=== PATIENT | female | born 1940 | race Caucasian/White ===

== ENCOUNTER 2022-03-29 10:01 | Inpatient (IN) ==
--- NOTE | 2022-03-29 10:18 | Emergency Department Note ---
Impression & Plan Weakness, Falls, Multiple contusions, Pain of right shoulder region ED Provider Note Provider: Jagdeep Glover MD DATE OF SERVICE: 03/29/2022 CHIEF COMPLAINT: Staring episodes, recent fall HISTORY OF PRESENT ILLNESS: Patient is a 82-year-old female with a history of CKD, hypertension, diabetes, and dementia presenting here today from her nursing facility for evaluation of change in behavior over the last several days and recent fall last week. Was seen here after a fall last week and had negative head imaging. Developed a significant bruising with scabbing to resolve on the mid side of the face. Discussed with staff members from the facility via phone the patient's been crawling the last several days but has been eating. No fevers reported. No more falls noted. They state at times it seems like she may stare off a little bit including 3 or 4 times this morning. No vomiting reported. They states that again she does have some underlying dementia. Patient herself denies significant pain to me but is unable provide any significant history. Daughter later arrives and states over the last 2 days the patient's been more confused lately she had urinary tract infections before. REVIEW OF SYSTEMS: Limited review of systems obtained from the patient due to her underlying dementia. PAST MEDICAL HISTORY: As noted above MEDICATIONS: Reviewed medication listing from the facility SOCIAL HISTORY: Resides at [facility] facility PHYSICAL EXAM: GENERAL: alert in no distress seated on the stretcher occasionally opening her eyes. Is unable to tell me her location or the year. Head: Patient with resolving and healing ecchymosis/contusion over the mid left forehead and left face. Small healing bruise in the chin. EYES: Right eye is a contact. Left eye is generally closed with no significant icterus or discharge noted NECK: Trachea midline. Supple. ENT: Mucous membranes pink and moist. LUNGS: Airway patent. No retractions. Breath sounds clear with good air entry bilaterally. HEART: Regular rate and rhythm. Some mild right-sided chest wall tenderness. ABDOMEN: Soft and non-tender, without guarding or rebound. SKIN: Acyanotic, warm, dry, without rashes EXTREMITIES: Patient with some tenderness of the right shoulder but no significant tenderness of the lower extremity noted. No significant pain with range of motion of the lower extremities although she is resisting some. Some healing contusion overlying the right knee. NEUROLOGICAL: Withdraws to pain in all 4 extremities. Will occasionally say yes or no. EK bpm normal sinus rhythm. No PVC or PAC. No acute ST segment elevation or depression. QTc 471. CONTINUOUS CARDIAC MONITORING: was ordered and showed a heart rate of 70s-90s bpm in normal sinus rhythm Patient's laboratory studies and imaging reviewed. Differential includes traumatic, infection, dehydration, metabolic abnormality, hypo/hyperglycemia, electrolyte disturbance, anemia, hypoxia, cardiac sources, intracerebral event, toxicologic, neurologic, as well as other pathologies. IMPRESSION/MEDICAL DECISION MAKING: Patient with about 2 days of some worsening confusion. Recent fall last week. Healing ecchymoses on exam but given the recent falls and more recently her confusion did complete evaluation with CT head, cervical spine, chest, as well as x-ray of the pelvis, right shoulder, and right knee which per radiology were reassuring for significant traumatic injury. Basic blood work was sent here without significant anemia or leukocytosis. Borderline hyponatremia. No significant renal dysfunction. Slight bilirubin elevation to 2.3 question if this is related to her resolving ecchymoses contusions. Negative COVID. No evidence of acute ACS with a normal high-sensitivity troponin. No TSH abnormal ity and a negative COVID test. Urine sample was ordered to evaluate for possible UTI. Daughter present at bedside states the patient has acted similarly when she is had urinary infections in the past. Straight cath urine sample here not indicative of infection. Daughter was able to converse briefly with the patient and indicates she wants some ice cream. Again no large focal deficits but generalized confusion increased weakness per the daughter. Again facility question if there may been some staring spells but have witnessed these here and do not see evidence of a reports of classic tonic-clonic seizure activity. Believe seizure less likely. Discussed with daughter the findings. X-rays again are reassuring. CTs were reassuring here. Cannot entirely exclude a CVA but not obvious hemiplegic in any nature. On additional reassessment with the patient's daughter at bedside the patient is currently in assisted living. Patient obvious requiring more assistance without currently identified clear explanation for why she may be more weak or confused today. Given this discussed with case management placement options and it appears that the option at this point is to have the p atient further observed by the hospitalist for further evaluation of some increased weakness/confusion as well case management works to see if additional resources may be mobilized to assist the patient with her ADLs and care. DIAGNOSIS: Contusions, confusion DISPOSITION: Hospitalist will evaluate Past Med/Surg History Medical History CKD (chronic kidney disease), stage III Diabetic peripheral neuropathy HTN (hypertension) Hyperlipidemia Loss of protective sensation of skin of foot Surgical History (Updated 02/29/20 @ 16:45 by Jarvis Devi MD) Hx of cataract extraction Social History (Updated 02/29/20 @ 16:46 by Jarvis Devi MD) Smoking Status: Unknown if ever smoked Hx Alcohol Use: No Preferred Language: Turkmen current occupational status: retired Feels Safe at Home: Yes Allergies Allergies Allergy/AdvReac Type Severity Reaction Status Date / Time Cephalosporins Allergy Mild ITCHING Verified 01/22/22 08:17 azithromycin Allergy itching Verified 01/22/22 08:17 clindamycin Allergy Diarrhea Verified 01/22/22 08:17 haloperidol AdvReac Unknown Unknown Uncoded 01/22/22 08:17 risperidone AdvReac Unknown Unknown Uncoded 01/22/22 08:17 Home Meds Home Medications Medication Instructions Recorded Confirmed aspirin 81 mg tablet,delayed 81 mg PO DAILY 10/25/19 03/29/22 release (Adult Aspirin Regimen) atorvastatin 40 mg tablet 40 mg PO DAILY 10/25/19 03/29/22 citalopram 40 mg tablet (Celexa) 40 mg PO DAILY tab 10/25/19 03/29/22 levothyroxine 75 mcg tablet 75 mcg PO DAILY 10/25/19 03/29/22 calcium carbonate 600 mg-vitamin 1 tab PO DAILY 10/27/19 03/29/22 D3 20 mcg (800 unit) tablet (Caltrate with Vitamin D3) cyclosporine 0.05 % eye drops in a 1 drops OP BID ea 10/27/19 03/29/22 dropperette (Restasis) vitamins A,C,G-dusn-nwscee 1 tab PO DAILY 10/27/19 03/29/22 [PreserVision AREDS] xpsjjmnetsm-vmb-jmhuxsrvk-hrb 1 tab PO DAILY tab 02/29/20 03/29/22 149-hyalur 500 mg-500 mg-66.7 mg tablet (Wxtquvqaadd-Lcopkreulom-FAS (with antiox)) vitamin E (dl, acetate) 180 mg 450 mg PO DAILY 05/04/20 03/29/22 (400 unit) capsule propylene glycol 0.6 % eye drops 1 drp OPHTHALMIC (EYE) TID PRN 12/04/20 03/29/22 (Systane Complete) acetaminophen 325 mg capsule 325 mg PO QID PRN 01/04/21 03/29/22 (Tylenol) hydrochlorothiazide 25 mg tablet 12.5 mg PO QAM 01/22/22 03/29/22 zxseyrhprhdz-xbonulqh-wcxcts tablet 1 tab PO DAILY 01/22/22 03/29/22 buspirone 5 mg tablet 5 mg PO BID 03/29/22 03/29/22 insulin aspar prot-insulin aspart 25 unit SQ DAILY 03/29/22 03/29/22 100 unit/mL (70-30) subcutaneous pen (Novolog Mix 70-30FlexPen U-100) Previous Rx's Medication Instructions Recorded blood sugar diagnostic #500 ea NS 10/01/21 pen needle,diabetic dual safty 30 #500 ea 02/07/22 gauge x 3/16" (BD AutoShield Duo Pen Needle) ReadyLance Safety Lancets 30 gauge #400 ea NS 03/20/22 (lancets) Results & Data (ED) Vital Signs Vital Signs - 24 hr 03/29/22 10:11 03/29/22 10:30 03/29/22 10:42 Temperature 36.8 C Temperature Source Oral Pulse Rate 82 Pulse Rate [Apical] 76 Respiratory Rate 18 19 Respiratory Effort / Characteristics Non-Labored Non-Labored Respiratory Depth Normal Normal Respiratory Pattern Regular Blood Pressure 141/66 H Blood Pressure [Right Arm] 137/65 Blood Pressure Mean 91 Blood Pressure Mean [Right Arm] 89 Blood Pressure Position [Right Arm] Semi-fowlers Pulse Oximetry 96 98 96 Oxygen Delivery Method Room Air Room Air Room Air Sepsis Recent Fever Within 48 Hours No Sepsis New/Unexplained Change in Mental Status No Sepsis Action Taken by Nursing No Action Required 03/29/22 12:00 03/29/22 14:00 Temperature Temperature Source Pulse Rate Pulse Rate [Apical] 81 Respiratory Rate 15 16 Respiratory Effort / Characteristics Non-Labored Spontaneous Non-Labored Spontaneous Respiratory Depth Normal Normal Respiratory Pattern Regular Blood Pressure Blood Pressure [Right Arm] 141/66 H Blood Pressure Mean Blood Pressure Mean [Right Arm] 91 Blood Pressure Position [Right Arm] Pulse Oximetry 98 97 Oxygen Delivery Method Room Air Room Air Sepsis Recent Fever Within 48 Hours Sepsis New/Unexplained Change in Mental Status Sepsis Action Taken by Nursing Laboratory Data Result diagrams: 03/29/22 10:36 03/29/22 10:36 Lab Results 03/29/22 03/29/22 03/29/22 Range/Units 10:30 10:36 10:36 WBC 10.08 (4.8-10.8) K/uL RBC 3.91 L (4.2-5.4) M/uL Hgb 12.1 (12.0-16.0) g/dL Hct 35.8 L (37-47) % MCV 91.6 (80-100) fL MCH 30.9 (25-34) pg MCHC 33.8 (32-36) g/dL RDW Std Deviation 44.9 (36.4-46.3) fL RDW Coeff of [place] 13.6 (11.5-14.5) % Plt Count 179 (130-400) K/uL MPV 10.9 H (7.4-10.4) fL Immature Gran % (Auto) 0.1 % Neut % (Auto) 80.8 % Lymph % (Auto) 8.9 % Adams % (Auto) 10.0 % Eos % (Auto) 0.1 % Baso % (Auto) 0.1 % Neut # (Auto) 8.14 H (1.4-6.5) K/uL Lymph # (Auto) 0.90 L (1.2-3.4) K/uL Adams # (Auto) 1.01 H (0.11-0.59) K/uL Eos # (Auto) 0.01 (0-0.5) K/uL Baso # (Auto) 0.01 (0-0.2) K/uL Immature Gran # (Auto) 0.01 (0.00-0.02) K/uL Sodium 134 L (136-145) mmol/L Potassium 3.7 (3.5-5.1) mmol/L Chloride 100 (98-107) mmol/L Carbon Dioxide 26 (21-32) mmol/L Anion Gap 8 (3-11) BUN 22 (6-23) mg/dl Creatinine 0.76 (0.6-1.2) mg/dl Est Cr Clr Drug Dosing 57.7 ml/min Est GFR ( Amer) 83.5 ml/min Est GFR (Non-Af Amer) 72.0 ml/min BUN/Creatinine Ratio 28.9 H (10-20) Glucose 269 H (70-99(Fasting)) mg/dl Calcium 8.7 (8.5-10.1) mg/dl Magnesium 2.0 (1.7-2.4) mg/dl Total Bilirubin 2.3 H (0.2-1.0) mg/dl AST 43 H (13-39) U/L ALT 51 (7-52) U/L Alkaline Phosphatase 92 (34-104) U/L Total Creatine Kinase 93 (26-192) U/L Troponin I High Sens 11.8 (0-14) pg/ml Total Protein 6.9 (6.0-8.3) gm/dl Albumin 3.7 (3.4-5.0) gm/dl Globulin 3.2 (2.5-4.0) gm/dl Albumin/Globulin Ratio 1.2 (0.9-2) TSH (0.300-4.500) uIu/ml Urine Color Urine Appearance (Clear) Urine pH (4.5-7.5) Ur Specific [place] (1.000-1.030) Urine Protein (Negative) Urine Glucose (UA) (Negative) Urine Ketones (Negative) Urine Blood (Negative) Urine Nitrite (Negative) Urine Bilirubin (Negative) Urine Urobilinogen (Negative) Ur Leukocyte Esterase (Negative) Urine WBC (Auto) (0-5) /hpf Urine RBC (Auto) (0-4) /hpf U Hyaline Cast (Auto) (0-5) /lpf U Epithel Cells (Auto) (0-5) /lpf Urine Bacteria (Auto) (Negative) SARS-CoV-2, RNA, NAAT NEGATIVE (NEGATIVE) 03/29/22 03/29/22 Range/Units 10:36 12:10 WBC (4.8-10.8) K/uL RBC (4.2-5.4) M/uL Hgb (12.0-16.0) g/dL Hct (37-47) % MCV (80-100) fL MCH (25-34) pg MCHC (32-36) g/dL RDW Std Deviation (36.4-46.3) fL RDW Coeff of Marianna (11.5-14.5) % Plt Count (130-400) K/uL MPV (7.4-10.4) fL Immature Gran % (Auto) % Neut % (Auto) % Lymph % (Auto) % Adams % (Auto) % Eos % (Auto) % Baso % (Auto) % Neut # (Auto) (1.4-6.5) K/uL Lymph # (Auto) (1.2-3.4) K/uL Adams # (Auto) (0.11-0.59) K/uL Eos # (Auto) (0-0.5) K/uL Baso # (Auto) (0-0.2) K/uL Immature Gran # (Auto) (0.00-0.02) K/uL Sodium (136-145) mmol/L Potassium (3.5-5.1) mmol/L Chloride (98-107) mmol/L Carbon Dioxide (21-32) mmol/L Anion Gap (3-11) BUN (6-23) mg/dl Creatinine (0.6-1.2) mg/dl Est Cr Clr Drug Dosing ml/min Est GFR ( Amer) ml/min Est GFR (Non-Af Amer) ml/min BUN/Creatinine Ratio (10-20) Glucose (70-99(Fasting)) mg/dl Calcium (8.5-10.1) mg/dl Magnesium (1.7-2.4) mg/dl Total Bilirubin (0.2-1.0) mg/dl AST (13-39) U/L ALT (7-52) U/L Alkaline Phosphatase (34-104) U/L Total Creatine Kinase (26-192) U/L Troponin I High Sens (0-14) pg/ml Total Protein (6.0-8.3) gm/dl Albumin (3.4-5.0) gm/dl Globulin (2.5-4.0) gm/dl Albumin/Globulin Ratio (0.9-2) TSH 2.599 (0.300-4.500) uIu/ml Urine Color Yellow Urine Appearance Clear (Clear) Urine pH 6.5 (4.5-7.5) Ur Specific [place] 1.030 (1.000-1.030) Urine Protein Trace H (Negative) Urine Glucose (UA) 3+ H (Negative) Urine Ketones Trace H (Negative) Urine Blood Negative (Negative) Urine Nitrite Negative (Negative) Urine Bilirubin Negative (Negative) Urine Urobilinogen Negative (Negative) Ur Leukocyte Esterase Negative (Negative) Urine WBC (Auto) 0 (0-5) /hpf Urine RBC (Auto) 0-4 (0-4) /hpf U Hyaline Cast (Auto) 0 (0-5) /lpf U Epithel Cells (Auto) 0-5 (0-5) /lpf Urine Bacteria (Auto) Negative (Negative) SARS-CoV-2, RNA, NAAT (NEGATIVE) Administered Medications Discontinued Medications Multi-Ingredient Cream (Artificial Tears Op Oint 3.5 Gm Tube) 1 appln OP NOW ONE Stop: 03/29/22 13:58 Last Admin: 03/29/22 14:21 Dose: Not Given Documented by: [id number] Imaging Data Radiologist's Impression: Cervical Spine CT 03/29/22 10:[address] DOSE: HISTORY: fall TECHNIQUE: Multiaxial CT images of the cervical spine were performed and reformatted in the sagittal and coronal plane without the use of contrast. A dose lowering technique was utilized adhering to the principles of ALARA. COMPARISON: Cervical spine CT 03/21/2022. FINDINGS: No fractures. No subluxation. Prevertebral soft tissues and the C1-C2 interval are intact. No pneumothorax. Degenerative changes again noted. IMPRESSION: No fractures within the cervical spine. ACT 112: Negative or not required by law. Electronically signed by: Juan Carlos Brush M.D. 03/29/2022 11:[address] 03/29/22 10:18 CT OF THE CHEST WITHOUT IV CONTRAST CLINICAL HISTORY: Fall. COMPARISON STUDY: Chest CT May 04, 2009. CT DOSE: 2428.21 mGy.cm TECHNIQUE: Axial images of the chest were obtained without IV contrast. Images were reviewed in the axial, sagittal, and coronal planes. IV contrast was not administered for this examination. Automated exposure control was utilized for the study. A dose lowering technique was utilized adhering to the principles of ALARA. FINDINGS: Subcutaneous stranding overlying the right shoulder and right upper chest wall suggest contusions. No acute fracture is identified within visualized skeletal structures. Cardiomegaly is noted with moderate coronary artery calcification. No pneumothorax or pulmonary contusion is present. Linear and ground glass opacities favor atelectasis. Lungs are suboptimally assessed due to respiratory motion. No thoracic lymphadenopathy is present. Gallstones within the gallbladder noted. Suspected bilateral renal parapelvic cysts are noted. These were shown on prior abdominal CT. There is a splenule. IMPRESSION: 1. Right anterior chest wall and right shoulder contusions. No acute fractures. 2. No additional acute traumatic findings within the chest. ACT 112: Negative or not required by law. Electronically signed by: Micah Vallejo M.D. 03/29/2022 12:[address] 03/29/22 10:[address] DOSE: HISTORY: fall TECHNIQUE: Multiaxial CT images of the head were performed without the use of intravenous contrast. Automated exposure control was utilized for this study. A dose lowering technique was utilized adhering to the principles of ALARA. Comparison: Head CT 03/21/2022. Findings: Mild left frontal scalp swelling is again noted. The paranasal sinuses and mastoid air cells are clear. Calcified right lobe, unchanged. The calvarium and skull base are intact. There is no mass, hematoma, midline shift, acute infarct. White matter hypodensity is nonspecific but suggestive of microvascular ischemic change. The ventricles and sulci demonstrate mild age-related involutional changes. Motion artifact. Impression: 1. Motion artifact. No definite acute intracranial abnormality. 2. Left frontal scalp swelling again noted. ACT 112: Negative or not required by law. Electronically signed by: Juan Carlos Brush M.D. 03/29/2022 11:03 AM Pelvis X-Ray 03/29/22 10:19 XR pelvis 1-2V routine CLINICAL HISTORY: ?fall COMPARISON: CT of the abdomen and pelvis February 10, 2012. FINDINGS: Sacroiliac joints and symphysis pubis are intact. No acute fracture within the pelvis or hips is present. There is moderate bilateral hip osteoarthritis. No suspicious osseous lesions are identified. Calcified fibroids are incidentally noted. IMPRESSION: No acute fracture within the pelvis or hips. ACT 112: Negative or not required by law. Electronically signed by: Micah Vallejo M.D. 03/29/2022 12:01 PM Shoulder X-Ray 03/29/22 10:19 XR shoulder RT min 2V routine CLINICAL HISTORY: Right shoulder pain following fall. COMPARISON: None FINDINGS: Alignment of the right shoulder is anatomic. There is no acute fracture. There is suspected calcific tendinitis of the right rotator cuff. Moderate osteoarthritis of the right acromioclavicular joint is present. There is also osteoarthritis of the glenohumeral joint. IMPRESSION: No acute fracture or dislocation within the right shoulder. ACT 112: Negative or not required by law. Electronically signed by: Micah Vallejo M.D. 03/29/2022 12:02 PM Knee X-Ray 03/29/22 11:27 RIGHT KNEE 3 VIEWS HISTORY: Right knee pain. fall COMPARISON: None. FINDINGS: There is no fracture or dislocation. Mild chondrocalcinosis. Moderate to severe tricompartmental osteoarthritis within the right knee. No significant knee effusion. No soft tissue swelling. No radiopaque foreign bodies. 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 No acute fractures. ACT 112: Negative or not required by law. Electronically signed by: Juan Carlos Brush M.D. 03/29/2022 12:24 PM Discharge Plan Visit Data Chief Complaint: Fall ED Provider: Jagdeep Glover Discharge Problem: Weakness, Falls, Multiple contusions, Pain of right shoulder region Patient Disposition: Being Evaluated by Hospitalist Forms Stand Alone Forms: My [facility] [place] [employer] Prescriptions Prescriptions: No Action (DME) blood sugar diagnostic Strip See Rx Instructions .ROUTE .MEDSUPPLY Qty: 500 RF: 3 (DME) BD AutoShield Duo Pen Needle 30 gauge x 3/16" needle See Rx Instructions .ROUTE .MEDSUPPLY Qty: 500 RF: 1 (DME) lancets [ReadyLance Safety Lancets] 30 gauge misc See Rx Instructions .Route Qty: 400 RF: 3 [id number]-[id number] [Mjwbke-Rzhzd-DVH (with antiox)] 500-500-66.7 mg tablet 1 tab PO DAILY RF: 0 vitamin E (dl, acetate) 400 unit capsule 450 mg PO DAILY RF: 0 Systane Complete 0.6 % drops 1 drp ophthalmic (eye) TID PRN (Reason: Dry Eye(S)) RF: 0 aspirin [Adult Aspirin Regimen] 81 mg tablet,delayed release (DR/EC) 81 mg PO DAILY RF: 0 atorvastatin 40 mg tablet 40 mg PO DAILY RF: 0 citalopram [Celexa] 40 mg tablet 40 mg PO DAILY RF: 0 levothyroxine 75 mcg tablet 75 mcg PO DAILY RF: 0 calcium carbonate-vitamin D3 [Caltrate with Vitamin D3] 600 mg(1,500mg) -800 unit tablet 1 tab PO DAILY RF: 0 Restasis 0.05 % dropperette 1 drops OP BID RF: 0 vitamins A,C,Q-ytil-mdtfeq 1 tab PO DAILY RF: 0 acetaminophen [Tylenol] 325 mg capsule 325 mg PO QID PRN (Reason: Pain) RF: 0 hydrochlorothiazide 25 mg tablet 12.5 mg PO QAM RF: 0 Cerovite Silver Tablet 1 tab PO DAILY RF: 0 buspirone [BuSpar] 5 mg Tablet 5 mg PO BID RF: 0 insulin asp prt-insulin aspart [Novolog Mix 70-30FlexPen U-100] 100 unit/mL (70-30) insulin pen 25 unit SQ DAILY RF: 0 Referrals Referrals: David Ahn [Primary Care Provider] -
[2022-03-29 10:56] LABS: Basophils # (auto) 0.01 K/uL (0-0.2); Basophils % (auto) 0.1 %; Eosinophils # (auto) 0.01 K/uL (0-0.5); Eosinophils % (auto) 0.1 %; Hematocrit (blood only) 35.8 % (37-47); Hemoglobin 12.1 g/dL (12.0-16.0); Immature Granulocytes # (auto) 0.01 K/uL (0.00-0.02); Immature Granulocytes % (auto) 0.1 %; Lymphocytes % (auto) 8.9 %; Mean Corpuscular Hemoglobin 30.9 pg (25-34); Mean Corpuscular Hgb Conc 33.8 g/dL (32-36); Mean Corpuscular Volume 91.6 fL (80-100); Mean Platelet Volume 10.9 fL (7.4-10.4); Monocytes # (auto) 1.01 K/uL (0.11-0.59); Neutrophils # (auto) 8.14 K/uL (1.4-6.5); Neutrophils % (auto) 80.8 %; Platelet Count 179 K/uL (130-400); RDW Coefficient of Variation 13.6 % (11.5-14.5); RDW Standard Deviation 44.9 fL (36.4-46.3); Red Blood Count 3.91 M/uL (4.2-5.4); White Blood Count 10.08 K/uL (4.8-10.8)
--- NOTE | 2022-03-29 11:05 | CT Scan Report ---
HEAD CT NONCONTRAST CT DOSE: HISTORY: fall TECHNIQUE: Multiaxial CT images of the head were performed without the use of intravenous contrast. A utomated exposure control was utilized for this study. A dose lowering technique was utilized adheri ng to the principles of ALARA. Comparison: Head CT 03/21/2022. Findings: Mild left frontal scalp swelling is again noted. The paranasal sinuses and mastoid air cell s are clear. Calcified right lobe, unchanged. The calvarium and skull base are intact. There is no ma ss, hematoma, midline shift, acute infarct. White matter hypodensity is nonspecific but suggestive of microvascular ischemic change. The ventricles and sulci demonstrate mild age-related involutional ch anges. Motion artifact. Impression: 1. Motion artifact. No definite acute intracranial abnormality. 2. Left frontal scalp swelling again noted. ACT 112: Negative or not required by law. Electronically signed by: Juan Carlos Brush M.D. 03/29/2022 11:03 AM
--- NOTE | 2022-03-29 11:10 | CT Scan Report ---
CERVICAL SPINE CT CT DOSE: HISTORY: fall TECHNIQUE: Multiaxial CT images of the cervical spine were performed and reformatted in the sagittal and coronal plane without the use of contrast. A dose lowering technique was utilized adhering to e principles of ALARA. COMPARISON: Cervical spine CT 03/21/2022. FINDINGS: No fractures. No subluxation. Prevertebral soft tissues and the C1-C2 interval are intact. No pneumothorax. Degenerative changes again noted. IMPRESSION: No fractures within the cervical spine. ACT 112: Negative or not required by law. Electronically signed by: Juan Carlos Brush M.D. 03/29/2022 11:07 AM
[2022-03-29 11:11] LABS: Albumin Globulin Ratio 1.2 (0.9-2); Albumin Level 3.7 gm/dl (3.4-5.0); BUN Creatinine Ratio 28.9 (10-20); Bilirubin,Total 2.3 mg/dl (0.2-1.0); Calcium 8.7 mg/dl (8.5-10.1); Creatinine Clr Calc Pharmacy 57.7 ml/min; Est GFR (African American) 83.5 ml/min; Globulin 3.2 gm/dl (2.5-4.0); Potassium 3.7 mmol/L (3.5-5.1); Total Protein 6.9 gm/dl (6.0-8.3)
[2022-03-29 11:16] LABS: Troponin I High Sensitivity 11.8 pg/ml (0-14)
--- NOTE | 2022-03-29 12:03 | XRay Report ---
XR shoulder RT min 2V routine CLINICAL HISTORY: Right shoulder pain following fall. COMPARISON: None FINDINGS: Alignment of the right shoulder is anatomic. There is no acute fracture. There is suspecte d calcific tendinitis of the right rotator cuff. Moderate osteoarthritis of the right acromioclavicul ar joint is present. There is also osteoarthritis of the glenohumeral joint. IMPRESSION: No acute fracture or dislocation within the right shoulder. ACT 112: Negative or not required by law. Electronically signed by: Micah Vallejo M.D. 03/29/2022 12:02 PM
--- NOTE | 2022-03-29 12:03 | XRay Report ---
XR pelvis 1-2V routine CLINICAL HISTORY: ?fall COMPARISON: CT of the abdomen and pelvis February 10, 2012. FINDINGS: Sacroiliac joints and symphysis pubis are intact. No acute fracture within the pelvis or h ips is present. There is moderate bilateral hip osteoarthritis. No suspicious osseous lesions are amado ntified. Calcified fibroids are incidentally noted. IMPRESSION: No acute fracture within the pelvis or hips. ACT 112: Negative or not required by law. Electronically signed by: Micah Vallejo M.D. 03/29/2022 12:01 PM
--- NOTE | 2022-03-29 12:08 | CT Scan Report ---
CT OF THE CHEST WITHOUT IV CONTRAST CLINICAL HISTORY: Fall. COMPARISON STUDY: Chest CT May 04, 2009. CT DOSE: 2428.21 mGy.cm TECHNIQUE: Axial images of the chest were obtained without IV contrast. Images were reviewed in the axial, sagittal, and coronal planes. IV contrast was not administered for this examination. Automat ed exposure control was utilized for the study. A dose lowering technique was utilized adhering to t he principles of ALARA. FINDINGS: Subcutaneous stranding overlying the right shoulder and right upper chest wall suggest con tusions. No acute fracture is identified within visualized skeletal structures. Cardiomegaly is noted with moderate coronary artery calcification. No pneumothorax or pulmonary contusion is present. Line ar and ground glass opacities favor atelectasis. Lungs are suboptimally assessed due to respiratory m otion. No thoracic lymphadenopathy is present. Gallstones within the gallbladder noted. Suspected alexsander ateral renal parapelvic cysts are noted. These were shown on prior abdominal CT. There is a splenule. IMPRESSION: 1. Right anterior chest wall and right shoulder contusions. No acute fractures. 2. No additional acute traumatic findings within the chest. ACT 112: Negative or not required by law. Electronically signed by: Micah Vallejo M.D. 03/29/2022 12:07 PM
--- NOTE | 2022-03-29 12:25 | XRay Report ---
RIGHT KNEE 3 VIEWS HISTORY: Right knee pain. fall COMPARISON: None. FINDINGS: There is no fracture or dislocation. Mild chondrocalcinosis. Moderate to severe tricompartm ental osteoarthritis within the right knee. No significant knee effusion. No soft tissue swelling. No radiopaque foreign bodies. 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 No acute fractures. ACT 112: Negative or not required by law. Electronically signed by: Juan Carlos Brush M.D. 03/29/2022 12:24 PM
[2022-03-29 13:30] LABS: Appearance Urine Clear (Clear); Bacteria Urine Automated Negative (Negative); Bilirubin Urine Negative (Negative); Blood Urine Negative (Negative); Cast Urine Automated 0 /lpf (0-5); Color Urine Yellow; Epithelial Cell Urine Auto 0-5 /lpf (0-5); Glucose Urine UA 3+ (Negative); Ketones Urine Trace (Negative); Leukocyte Esterase Urine Negative (Negative); Nitrite Urine Negative (Negative); Protein Urine Trace (Negative); RBC Urine Automated 0-4 /hpf (0-4); Urobilinogen Urine Negative (Negative); WBC Urine Automated 0 /hpf (0-5); pH Urine 6.5 (4.5-7.5)
[2022-03-29] MEDS ORDERED: ARTIFICIAL TEARS OP OINT 3.5 GM TUBE OP ONE (13:57)
--- NOTE | 2022-03-29 14:25 | History & Physical Report ---
Date of Service March 29, 2022 Assessment & Plan (1) Fall: Plan: - Admit to med surg - No acute fractures seen on imaging today, no recent falls since 03/21 where she was seen here in the ER last week - PT/OT consults - Fall precautions (2) Dementia: Plan: -Worse than baseline, will check an EEG -Follows with Dr. Zhong with neurology as an outpatient, consider consultation -Son, Fidel, reports that [facility] memory care unit has accepted the patient at their facility, daughter just needs to sign forms, case management to help further with placement -discussion held with daughter at bedside and brother over the phone. Brother describes that they do not always see eye to eye. He defers back to his sister to make the decision for code status. (3) Type 2 diabetes mellitus with insulin therapy: Plan: - ISS with accuchecknatacha bella - last A1C was Dec 26 2021 was 8.3, will recheck with morning labs (4) Hypothyroidism: Plan: -Continue levothyroxine, TSH 2.55 on admission (5) Hyperlipidemia: Plan: -Continue statin therapy (6) HTN (hypertension): Plan: -Continue HCTZ 12.5 mg daily, baby aspirin (7) Diabetic peripheral neuropathy: Plan: -Noted, stable (8) CKD (chronic kidney disease), stage III: Plan: -Creatinine is 0.76 on arrival, baseline appears to be 0.9- 1.0 since back to 2018 - Trend with am labs DVT ppx: - teds, scds, lovenox subq CODE: Needs to be further discussed by the patients children who are her POA. Dispo: From home, likely to remain in the hospital x 1-2 days History of Present Illness Chief Complaint: Fall Primary Care Provider: [facility] This is an 82 yo F with PMhx of vascular dementia, follows with Dr. Zhong, fell on 03/21 and presented here to the ER. She was sent back to the assisted living facility after no obvious fractures were revealed and pain was controlled. Pt returns today due to increase confusions, and another fall which she sustained on 03/25. She has further developed bruising over the right arm, and has worsened in the past two days. Daughter reports staff at the nursing facility have mention that she was crawling out of bed yesterday which is uncommon for her, however daughter notes that they do not keep her walker in her shoes next to bed as she requires assistance to get out of bed. She can ambulate with use of a walker with her shoes on at baseline. Pt is unable to go back to assisted level due the level of assistance she is requiring recently, dressing, changes after bowel movements, etc. Pt was supposedly going to be transitioned to [facility] at the end of the month per outpatient record review, as this has been recommended by her neurologist. Today she was reimaged to ensure there were no further acute fractures or injuries; Contusions are present on the R chest wall and right shoulder. No acute fractures or other injuries were noted. UA is negative for acute infection. No white count, afebrile, hemoglobin is stable at 12.1, sodium is 134 on admission, electrolytes are within normal range. Glucose is elevated at 269 on admission. AST is also elevated at 43. Her daughter is present with her at bedside and supports the history. Allergies Allergy/AdvReac Type Severity Reaction Status Date / Time Cephalosporins Allergy Mild ITCHING Verified 01/22/22 08:17 azithromycin Allergy itching Verified 01/22/22 08:17 clindamycin Allergy Diarrhea Verified 01/22/22 08:17 haloperidol AdvReac Unknown Unknown Uncoded 01/22/22 08:17 risperidone AdvReac Unknown Unknown Uncoded 01/22/22 08:17 Home Medications Medication Instructions Recorded Confirmed Type aspirin 81 mg tablet,delayed 81 mg PO DAILY 10/25/19 03/29/22 History release (Adult Aspirin Regimen) atorvastatin 40 mg tablet 40 mg PO DAILY 10/25/19 03/29/22 History citalopram 40 mg tablet (Celexa) 40 mg PO DAILY tab 10/25/19 03/29/22 History levothyroxine 75 mcg tablet 75 mcg PO DAILY 10/25/19 03/29/22 History calcium carbonate 600 mg-vitamin 1 tab PO DAILY 10/27/19 03/29/22 History D3 20 mcg (800 unit) tablet (Caltrate with Vitamin D3) cyclosporine 0.05 % eye drops in a 1 drops OP BID ea 10/27/19 03/29/22 History dropperette (Restasis) vitamins A,C,H-ccaa-gploez 1 tab PO DAILY 10/27/19 03/29/22 History [PreserVision AREDS] ggobctcpozo-bpw-msochvmnd-hrb 1 tab PO DAILY tab 02/29/20 03/29/22 History 149-hyalur 500 mg-500 mg-66.7 mg tablet (Xdfshzsapir-Tuxtnxomduu-SIV (with antiox)) vitamin E (dl, acetate) 180 mg 450 mg PO DAILY 05/04/20 03/29/22 History (400 unit) capsule propylene glycol 0.6 % eye drops 1 drp OPHTHALMIC (EYE) TID PRN 12/04/20 03/29/22 History (Systane Complete) acetaminophen 325 mg capsule 325 mg PO QID PRN 01/04/21 03/29/22 History (Tylenol) blood sugar diagnostic #500 ea NS 10/01/21 Rx hydrochlorothiazide 25 mg tablet 12.5 mg PO QAM 01/22/22 03/29/22 History yzqpedxhgxby-jpuliwoe-arcjyy tablet 1 tab PO DAILY 01/22/22 03/29/22 History pen needle,diabetic dual safty 30 #500 ea 02/07/22 Rx gauge x 3/16" (BD AutoShield Duo Pen Needle) ReadyLance Safety Lancets 30 gauge #400 ea NS 03/20/22 Rx (lancets) buspirone 5 mg tablet 5 mg PO BID 03/29/22 03/29/22 History insulin aspar prot-insulin aspart 25 unit SQ DAILY 03/29/22 03/29/22 History 100 unit/mL (70-30) subcutaneous pen (Novolog Mix 70-30FlexPen U-100) Past Med/Surg History Medical History CKD (chronic kidney disease), stage III Diabetic peripheral neuropathy HTN (hypertension) Hyperlipidemia Loss of protective sensation of skin of foot Surgical History (Updated 02/29/20 @ 16:45 by Jarvis Devi MD) Hx of cataract extraction Social History (Updated 02/29/20 @ 16:46 by Jarvis Devi MD) Smoking Status: Unknown if ever smoked Hx Alcohol Use: No Preferred Language: Thai current occupational status: retired Feels Safe at Home: Yes Review of Systems 2 Review of Systems: Constitutional: No fever, sweats or chills Eyes: No diplopia, no worsening or blurred vision ENT: normal hearing, no trouble swallowing, + mouth is dry Respiratory: No cough, sputum, dyspnea at rest or on exertion Cardiovascular: No chest pain, tightness or palpitations Abdomen: No pain, nausea, vomiting, diarrhea or constipation Musculoskeletal: No joint pain, calf pain, swelling Neurologic: No weakness, numbness/tingling, or balance problems Psychiatric: No anxiety or depression Skin: No rash or itch Physical Exam Physical Exam: General: awaken to verbal stimuli, alert to self, not to place or time, no apparent distress Head: Normocephalic, + ecchymosis over the left side of her face, area of ecchymosis under her chin ENT: PERRL, EOMI, no pharyngeal exudate, mucous membranes dry, dentition intact Chest: Clear to auscultation, on room air, no adventitious breath sounds Cardiac: Regular rate and rhythm, + loud systolic ejection murmur, no JVD, normal peripheral pulses, good capillary refill Abdominal: NABS x 4 quadrants, soft, nondistended, nontender to palpation, no rebound or guarding Extremities: Right upper extremity with large areas of ecchymosis on the antecubital region and bicep region, right lateral thigh with area of ecchymosis, left knee with area of ecchymosis, no peripheral edema or erythema, calfs nontender to palpation Psych: Normal mood and affect Neuro: AAO to self, not to time or place, patient does not participate in strength testing, no obvious motor deficits, speech is clear Results & Data Results & Data ([facility]) Vital Signs (Past 12 Hours) Vital Signs Temp Pulse Pulse Resp BP BP Pulse Ox 03/29/22 12:00 81 15 141/66 H 98 03/29/22 10:42 96 03/29/22 10:30 76 19 137/65 98 03/29/22 10:11 36.8 C 82 18 141/66 H 96 Laboratory Results 03/29/22 03/29/22 03/29/22 12:10 10:36 10:36 WBC RBC Hgb Hct MCV MCH MCHC RDW Std Deviation RDW Coeff of [place] Plt Count MPV Immature Gran % (Auto) Neut % (Auto) Lymph % (Auto) [place] % (Auto) Eos % (Auto) Baso % (Auto) Neut # (Auto) Lymph # (Auto) [place] # (Auto) Eos # (Auto) Baso # (Auto) Immature Gran # (Auto) Sodium 134 L Potassium 3.7 Chloride 100 Carbon Dioxide 26 Anion Gap 8 BUN 22 Creatinine 0.76 Est Cr Clr Drug Dosing 57.7 Est GFR ( Amer) 83.5 Est GFR (Non-Af Amer) 72.0 BUN/Creatinine Ratio 28.9 H Glucose 269 H Calcium 8.7 Magnesium 2.0 Total Bilirubin 2.3 H AST 43 H ALT 51 Alkaline Phosphatase 92 Total Creatine Kinase 93 Troponin I High Sens 11.8 Total Protein 6.9 Albumin 3.7 Globulin 3.2 Albumin/Globulin Ratio 1.2 TSH 2.599 Urine Color Yellow Urine Appearance Clear Urine pH 6.5 Ur Specific [place] 1.030 Urine Protein Trace H Urine Glucose (UA) 3+ H Urine Ketones Trace H Urine Blood Negative Urine Nitrite Negative Urine Bilirubin Negative Urine Urobilinogen Negative Ur Leukocyte Esterase Negative Urine WBC (Auto) 0 Urine RBC (Auto) 0-4 U Hyaline Cast (Auto) 0 U Epithel Cells (Auto) 0-5 Urine Bacteria (Auto) Negative SARS-CoV-2, RNA, NAAT 03/29/22 03/29/22 10:36 10:30 WBC 10.08 RBC 3.91 L Hgb 12.1 Hct 35.8 L MCV 91.6 MCH 30.9 MCHC 33.8 RDW Std Deviation 44.9 RDW Coeff of [place] 13.6 Plt Count 179 MPV 10.9 H Immature Gran % (Auto) 0.1 Neut % (Auto) 80.8 Lymph % (Auto) 8.9 [place] % (Auto) 10.0 Eos % (Auto) 0.1 Baso % (Auto) 0.1 Neut # (Auto) 8.14 H Lymph # (Auto) 0.90 L [place] # (Auto) 1.01 H Eos # (Auto) 0.01 Baso # (Auto) 0.01 Immature Gran # (Auto) 0.01 Sodium Potassium Chloride Carbon Dioxide Anion Gap BUN Creatinine Est Cr Clr Drug Dosing Est GFR ( Amer) Est GFR (Non-Af Amer) BUN/Creatinine Ratio Glucose Calcium Magnesium Total Bilirubin AST ALT Alkaline Phosphatase Total Creatine Kinase Troponin I High Sens Total Protein Albumin Globulin Albumin/Globulin Ratio TSH Urine Color Urine Appearance Urine pH Ur Specific [place] Urine Protein Urine Glucose (UA) Urine Ketones Urine Blood Urine Nitrite Urine Bilirubin Urine Urobilinogen Ur Leukocyte Esterase Urine WBC (Auto) Urine RBC (Auto) U Hyaline Cast (Auto) U Epithel Cells (Auto) Urine Bacteria (Auto) SARS-CoV-2, RNA, NAAT NEGATIVE Diagnostic Findings Cervical Spine CT 03/29/22 10:[address] DOSE: HISTORY: fall TECHNIQUE: Multiaxial CT images of the cervical spine were performed and reformatted in the sagittal and coronal plane without the use of contrast. A dose lowering technique was utilized adhering to the principles of ALARA. COMPARISON: Cervical spine CT 03/21/2022. FINDINGS: No fractures. No subluxation. Prevertebral soft tissues and the C1-C2 interval are intact. No pneumothorax. Degenerative changes again noted. IMPRESSION: No fractures within the cervical spine. ACT 112: Negative or not required by law. Electronically signed by: Juan Carlos Brush M.D. 03/29/2022 11:[address] 03/29/22 10:18 CT OF THE CHEST WITHOUT IV CONTRAST CLINICAL HISTORY: Fall. COMPARISON STUDY: Chest CT May 04, 2009. CT DOSE: 2428.21 mGy.cm TECHNIQUE: Axial images of the chest were obtained without IV contrast. Images were reviewed in the axial, sagittal, and coronal planes. IV contrast was not administered for this examination. Automated exposure control was utilized for the study. A dose lowering technique was utilized adhering to the principles of ALARA. FINDINGS: Subcutaneous stranding overlying the right shoulder and right upper chest wall suggest contusions. No acute fracture is identified within visualized skeletal structures. Cardiomegaly is noted with moderate coronary artery calcification. No pneumothorax or pulmonary contusion is present. Linear and ground glass opacities favor atelectasis. Lungs are suboptimally assessed due to respiratory motion. No thoracic lymphadenopathy is present. Gallstones within the gallbladder noted. Suspected bilateral renal parapelvic cysts are noted. These were shown on prior abdominal CT. There is a splenule. IMPRESSION: 1. Right anterior chest wall and right shoulder contusions. No acute fractures. 2. No additional acute traumatic findings within the chest. ACT 112: Negative or not required by law. Electronically signed by: Micah Vallejo M.D. 03/29/2022 12:[address] 03/29/22 10:[address] DOSE: HISTORY: fall TECHNIQUE: Multiaxial CT images of the head were performed without the use of intravenous contrast. Automated exposure control was utilized for this study. A dose lowering technique was utilized adhering to the principles of ALARA. Comparison: Head CT 03/21/2022. Findings: Mild left frontal scalp swelling is again noted. The paranasal sinuses and mastoid air cells are clear. Calcified right lobe, unchanged. The calvarium and skull base are intact. There is no mass, hematoma, midline shift, acute infarct. White matter hypodensity is nonspecific but suggestive of microvascular ischemic change. The ventricles and sulci demonstrate mild age-related involutional changes. Motion artifact. Impression: 1. Motion artifact. No definite acute intracranial abnormality. 2. Left frontal scalp swelling again noted. ACT 112: Negative or not required by law. Electronically signed by: Juan Carlos Brush M.D. 03/29/2022 11:03 AM Pelvis X-Ray 03/29/22 10:19 XR pelvis 1-2V routine CLINICAL HISTORY: ?fall COMPARISON: CT of the abdomen and pelvis February 10, 2012. FINDINGS: Sacroiliac joints and symphysis pubis are intact. No acute fracture within the pelvis or hips is present. There is moderate bilateral hip osteoarthritis. No suspicious osseous lesions are identified. Calcified fibroids are incidentally noted. IMPRESSION: No acute fracture within the pelvis or hips. ACT 112: Negative or not required by law. Electronically signed by: Micah Vallejo M.D. 03/29/2022 12:01 PM Shoulder X-Ray 03/29/22 10:19 XR shoulder RT min 2V routine CLINICAL HISTORY: Right shoulder pain following fall. COMPARISON: None FINDINGS: Alignment of the right shoulder is anatomic. There is no acute fracture. There is suspected calcific tendinitis of the right rotator cuff. Moderate osteoarthritis of the right acromioclavicular joint is present. There is also osteoarthritis of the glenohumeral joint. IMPRESSION: No acute fracture or dislocation within the right shoulder. ACT 112: Negative or not required by law. Electronically signed by: Micah Vallejo M.D. 03/29/2022 12:02 PM Knee X-Ray 03/29/22 11:27 RIGHT KNEE 3 VIEWS HISTORY: Right knee pain. fall COMPARISON: None. FINDINGS: There is no fracture or dislocation. Mild chondrocalcinosis. Moderate to severe tricompartmental osteoarthritis within the right knee. No significant knee effusion. No soft tissue swelling. No radiopaque foreign bodies. 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 No acute fractures. ACT 112: Negative or not required by law. Electronically signed by: Juan Carlos Brush M.D. 03/29/2022 12:24 PM ECG Additional Comments: 29-MAR-2022 10:10:25 [facility]-EDSTAT ROUTINE RETRIEVAL Poor data quality, interpretation may be adversely affected Normal sinus rhythm Inferior infarct , age undetermined Anterior infarct (cited on or before 29-MAR-2022) Abnormal ECG When compared with ECG of 22-JAN-2022 08:28, Inferior infarct is now Present T wave inversion now evident in Inferior leads Nonspecific T wave abnormality now evident in Anterior leads 25mm/s10 [id number] 241 HDCID: 12Referred by: REFERRED SELF Unconfirmed Vent. rate 86 BPM TX interval 132 ms QRS duration 80 ms QT/QTc 394/471 m Code Status & VTE Plan Code Status Daughter at bedside was unable to answer this question, defers it to her brother, Fidel Dillon who can be reached at [phone], called and unable to reach him6 Supervising Physician Co-Signing Physician Notes History notable for 59-lupu-nhf-year-old woman with vascular dementia who presents from assisted living facility with multiple falls, increasing confusion, report of staring spells per ER physician who discussed with facility. Physical exam notable for elderly woman, was drowsy but arousable and oriented to person only, multiple bruises and ecchymosis over face, arms and legs, Labs only notable for sodium of 134, glucose of 269, bilirubin of 2.3 Multiple images including knee x-ray showed x-ray pelvis x-ray head CT chest CT cervical spine CT did not show any acute fractures but did show right anterior chest wall and right shoulder contusions, left frontal scalp swelling Frequent falls in a patient with vascular dementia Fall precautions PT/OT evaluation Case management consult for possible placement In view of reported staring spells, get EEG and may need neurology evaluation Agree with other plans as detailed by Zulay Narvaez PA-C
[2022-03-29] MEDS ORDERED: DEXTROSE 50% 50 ML SYRINGE IV PRN (16:29)
[2022-03-29] MEDS ORDERED: GLUCOSE 40% GEL 15 GM TUBE PO PRN (16:29)
[2022-03-29] MEDS ORDERED: ONDANSETRON INJ 2 MG/ML 2 ML VIAL IV PRN (16:29)
[2022-03-29] MEDS ORDERED: GLUCAGON FOR INJ 1 MG VIAL SQ PRN (16:29)
[2022-03-29] MEDS ORDERED: GLUCOSE 10 TABS/TUBE PO PRN (16:29)
[2022-03-29] MEDS ORDERED: CARBOHYDRATES FOR HYPOGLYCEMIA PO PRN (16:29)
[2022-03-29] MEDS ORDERED: ARTIFICIAL TEARS OP PRN (16:37)
[2022-03-29] MEDS: INSULIN ASPART PER UNIT SC SCH ×2 (17:18→22:15)
--- NOTE | 2022-03-29 18:13 | Electrocardiogram Report ---
Test Reason : Blood Pressure : / mmHG Vent. Rate : 086 BPM Atrial Rate : 086 BPM P-R Int : 132 ms QRS Dur : 080 ms QT Int : 394 ms P-R-T Axes : 000 -12 005 degrees QTc Int : 471 ms Poor data quality, interpretation may be adversely affected Normal sinus rhythm Anterior infarct (cited on or before 29-MAR-2022) Abnormal ECG When compared with ECG of 22-JAN-2022 08:28, T wave inversion now evident in Inferior leads Nonspecific T wave abnormality now evident in Anterior leads Confirmed by Ryan Monroy ([id number]) on 03/29/2022 6:13:39 PM Referred By: REFERRED SELF Confirmed By:Manuel Monroy
[2022-03-29] MEDS: busPIRone 5 MG TAB PO SCH (22:16)
[2022-03-30] MEDS: LEVOTHYROXINE SODIUM 75 MCG TABLET PO SCH (06:18)
[2022-03-30 06:55] LABS: Hematocrit (blood only) 36.1 % (37-47); Hemoglobin 11.8 g/dL (12.0-16.0); Mean Corpuscular Hemoglobin 29.5 pg (25-34); Mean Corpuscular Hgb Conc 32.7 g/dL (32-36); Mean Corpuscular Volume 90.3 fL (80-100); Mean Platelet Volume 10.1 fL (7.4-10.4); Platelet Count 164 K/uL (130-400); RDW Coefficient of Variation 13.6 % (11.5-14.5); RDW Standard Deviation 45.1 fL (36.4-46.3); White Blood Count 7.31 K/uL (4.8-10.8)
[2022-03-30 07:15] LABS: Albumin Globulin Ratio 1.1 (0.9-2); Albumin Level 3.4 gm/dl (3.4-5.0); BUN Creatinine Ratio 27.3 (10-20); Bilirubin,Total 2.2 mg/dl (0.2-1.0); Calcium 8.5 mg/dl (8.5-10.1); Creatinine Clr Calc Pharmacy 62.8 ml/min; Est GFR (Non-African American) 81.1 ml/min; Globulin 3.1 gm/dl (2.5-4.0); Potassium 3.8 mmol/L (3.5-5.1); Total Protein 6.5 gm/dl (6.0-8.3)
[2022-03-30] MEDS: ATORVASTATIN 40 MG TAB PO SCH (09:05)
[2022-03-30] MEDS: hydroCHLOROthiazide 25 MG TAB PO SCH (09:06)
[2022-03-30] MEDS: CEROVITE ADV FORMULA TAB PO SCH (09:06)
[2022-03-30] MEDS: CITALOPRAM 40 MG TAB PO SCH (09:06)
[2022-03-30] MEDS: ASPIRIN 81 MG ECTAB PO SCH (09:06)
[2022-03-30] MEDS: ENOXAPARIN INJ 40 MG/0.4 ML SYR SQ SCH (09:07)
[2022-03-30] MEDS: INSULIN ASPART PER UNIT SC SCH ×4 (09:16→20:35)
[2022-03-30] MEDS: busPIRone 5 MG TAB PO SCH ×2 (09:27→20:36)
[2022-03-30 10:09] LABS: Estimated Average Glucose 194 mg/dl; Hemoglobin A1C 8.4 % (4.5-5.6)
--- NOTE | 2022-03-30 17:27 | Hospitalist Progress Note ---
Date of Service March 30, 2022 Assessment & Plan (1) Fall: Plan: - No acute fractures seen on imaging but some chest wall/shoulder contusion - PT/OT eval pending - Fall precautions (2) Dementia: Plan: -Vascular dementia- Seems pretty advanced, Oriented to self only. EEG for completeness pending. -Follows with Dr. Zhong with neurology as an outpatient. -Son, Fidel, reported that [facility] care unit has accepted the patient at their facility, daughter just needs to sign forms, case management to help further with placement - Per admitting hospitalist who discussed with daughter at bedside and brother over the phone. Brother describes that they do not always see eye to eye. He defers back to his sister to make the decision for code status. (3) Type 2 diabetes mellitus with insulin therapy: Plan: A1c 8.4, on SSI, will not be aggressive with her diabetic control given her comorbidities (4) Hypothyroidism: Plan: -Continue levothyroxine, TSH 2.55 on admission (5) Hyperlipidemia: Plan: -Continue statin therapy (6) HTN (hypertension): Plan: - Stable on home HCTZ 12.5 mg- will hold if poor oral intake (7) Diabetic peripheral neuropathy: Plan: -Noted, stable (8) CKD (chronic kidney disease), stage III: Plan: Cr stable at baseline, Currently 0.7 Plan: Transaminitis- mild, recheck in am DVT ppx: sc lovenox Code status: Needs to be further discussed by the patient's children who are her POA. Dispo: Pending PT/OTeval- likely will be transferred to memory unit from here Admission and Anticipated Discharge Date Admission Date: March 29, 2022 Subjective She is awake and alert but oriented to self only. Not engaging in meaningful conversation during my encounter. Physical Exam Physical Exam: General: Elderly female, lying comfortably in bed, not in distress, on room air HEENT: Ecchymoses over left face, frontal scalp swelling Chest: Clear breath sounds bilaterally, no wheezes or crackles CVS: Regular rate and rhythm, normal heart sounds, no murmur Abdomen: Soft, non tender, not distended, normal bowel sounds Neuro: Awake, alert, oriented to self, not able to have meaningful conversation- she denies any fall or injuries Extremities: No cyanosis, clubbing or edema Skin: multiple ecchymoses on her face, arms and legs Results & Data Results & Data ([facility]) Vital Signs (Past 12 Hours) Vital Signs Temp Resp BP Pulse Ox 03/30/22 07:06 36.9 C 18 128/71 98 Laboratory Results Short CBC 03/30/22 Range/Units 06:43 WBC 7.31 (4.8-10.8) K/uL Hgb 11.8 L (12.0-16.0) g/dL Hct 36.1 L (37-47) % Plt Count 164 (130-400) K/uL BMP 03/30/22 06:43 Sodium 133 L Potassium 3.8 Chloride 99 Carbon Dioxide 27 BUN 18 Creatinine 0.66 Glucose 169 H Calcium 8.5 Liver Function 03/30/22 Range/Units 06:43 Total Bilirubin 2.2 H (0.2-1.0) mg/dl AST 65 H (13-39) U/L ALT 76 H (7-52) U/L Alkaline Phosphatase 103 (34-104) U/L Albumin 3.4 (3.4-5.0) gm/dl Medications Administered Current Inpatient Medications Acetaminophen (Acetaminophen 325 Mg Tab) 650 mg PO Q4H PRN PRN Reason: Moderate Pain Stop: 04/28/22 16:28 Artificial Tears (Artificial Tears) 1 drops OP TID PRN PRN Reason: Dry Eye(S) Stop: 04/28/22 16:36 Last Admin: 03/30/22 17:48 Dose: 1 drops Documented by: Aspirin (Aspirin 81 Mg Ectab) 81 mg PO DAILY [facility] Stop: 04/29/22 08:59 Last Admin: 03/30/22 09:06 Dose: 81 mg Documented by: Atorvastatin Calcium (Atorvastatin 40 Mg Tab) 40 mg PO DAILY [facility] Stop: 04/29/22 08:59 Last Admin: 03/30/22 09:05 Dose: 40 mg Documented by: Buspirone HCl (Buspirone 5 Mg Tab) 5 mg PO BID [facility] Stop: 04/28/22 20:59 Last Admin: 03/30/22 09:27 Dose: 5 mg Documented by: Citalopram Hydrobromide (Citalopram 40 Mg Tab) 40 mg PO DAILY [facility] Stop: 04/29/22 08:59 Last Admin: 03/30/22 09:06 Dose: 40 mg Documented by: Dextrose (Dextrose 50% 50 Ml Syringe) 25 - 50 ml IV UD PRN; Protocol PRN Reason: Hypoglycemia Protocol Stop: 04/28/22 16:28 Enoxaparin Sodium (Enoxaparin Inj 40 Mg/0.4 Ml Syr) 40 mg SQ QAM [facility] Stop: 04/29/22 08:59 Last Admin: 03/30/22 09:07 Dose: 40 mg Documented by: Glucagon (Glucagon For Inj 1 Mg Vial) 1 mg SQ UD PRN; Protocol PRN Reason: Hypoglycemia Protocol Stop: 04/28/22 16:28 Glucose (Glucose 10 Tabs/Tube) 4 - 8 tabs PO UD PRN; Protocol PRN Reason: Hypoglycemia Protocol Stop: 04/28/22 16:28 Glucose (Glucose 40% Gel 15 Gm Tube) 15 - 30 gm PO UD PRN; Protocol PRN Reason: Hypoglycemia Protocol Stop: 04/28/22 16:28 Hydrochlorothiazide (Hydrochlorothiazide 25 Mg Tab) 12.5 mg PO QAM [facility] Stop: 04/29/22 08:59 Last Admin: 03/30/22 09:06 Dose: 12.5 mg Documented by: Insulin Aspart (Insulin Aspart Per Unit) 0 units SC ACHS [facility] Stop: 04/28/22 16:29 Last Admin: 03/30/22 17:52 Dose: 5 units Documented by: Levothyroxine Sodium (Levothyroxine Sodium 75 Mcg Tablet) 75 mcg PO DAILYBB [facility] Stop: 04/29/22 06:29 Last Admin: 03/30/22 06:18 Dose: 75 mcg Documented by: Miscellaneous (Order Awaiting Action [Cyclosporine [Restasis] 0.05 % Dropperette]) 1 ea N/A QS [facility] Stop: 04/29/22 00:00 Last Admin: 03/30/22 17:08 Dose: Not Given Documented by: Miscellaneous (Carbohydrates For Hypoglycemia ) 15 - 30 gm PO UD PRN PRN Reason: Hypoglycemia Protocol Stop: 04/28/22 16:28 Multivitamins/Minerals (Cerovite Adv Formula Tab) 1 tab PO DAILY [facility] Stop: 04/29/22 08:59 Last Admin: 03/30/22 09:06 Dose: 1 tab Documented by: Ondansetron HCl (Ondansetron Inj 2 Mg/Ml 2 Ml Vial) 4 mg IV Q4H PRN PRN Reason: Nausea And Vomiting Stop: 04/28/22 16:28
[2022-03-30] MEDS ORDERED: SYSTANE SCH (21:00)
[2022-03-30] MEDS: SYSTANE OP SCH (21:59)
[2022-03-30] MEDS: cycloSPORINE (RESTASIS) OP SCH (21:59)
[2022-03-31] MEDS: LEVOTHYROXINE SODIUM 75 MCG TABLET PO SCH (05:53)
[2022-03-31 06:29] LABS: Basophils # (auto) 0.02 K/uL (0-0.2); Basophils % (auto) 0.3 %; Eosinophils # (auto) 0.14 K/uL (0-0.5); Eosinophils % (auto) 2.3 %; Hematocrit (blood only) 35.9 % (37-47); Immature Granulocytes # (auto) 0.02 K/uL (0.00-0.02); Immature Granulocytes % (auto) 0.3 %; Lymphocytes # (auto) 1.19 K/uL (1.2-3.4); Lymphocytes % (auto) 19.7 %; Mean Corpuscular Hemoglobin 29.9 pg (25-34); Mean Corpuscular Hgb Conc 33.4 g/dL (32-36); Mean Corpuscular Volume 89.5 fL (80-100); Mean Platelet Volume 10.6 fL (7.4-10.4); Monocytes # (auto) 0.59 K/uL (0.11-0.59); Monocytes % (auto) 9.8 %; Neutrophils # (auto) 4.09 K/uL (1.4-6.5); Neutrophils % (auto) 67.6 %; Platelet Count 185 K/uL (130-400); RDW Coefficient of Variation 13.3 % (11.5-14.5); RDW Standard Deviation 43.9 fL (36.4-46.3); Red Blood Count 4.01 M/uL (4.2-5.4); White Blood Count 6.05 K/uL (4.8-10.8)
[2022-03-31 06:56] LABS: Albumin Level 3.4 gm/dl (3.4-5.0); BUN Creatinine Ratio 28.8 (10-20); Bilirubin Direct 0.2 mg/dl (0-0.2); Bilirubin,Total 1.7 mg/dl (0.2-1.0); Calcium 8.4 mg/dl (8.5-10.1); Creatinine Clr Calc Pharmacy 51.8 ml/min; Est GFR (African American) 78.5 ml/min; Est GFR (Non-African American) 67.7 ml/min; Magnesium 1.8 mg/dl (1.7-2.4); Phosphorus 3.3 mg/dl (2.5-4.9); Potassium 3.6 mmol/L (3.5-5.1); Total Protein 6.6 gm/dl (6.0-8.3)
[2022-03-31] MEDS: busPIRone 5 MG TAB PO SCH (08:35)
[2022-03-31] MEDS: ASPIRIN 81 MG ECTAB PO SCH (08:35)
[2022-03-31] MEDS: CITALOPRAM 40 MG TAB PO SCH (08:35)
[2022-03-31] MEDS: hydroCHLOROthiazide 25 MG TAB PO SCH (08:35)
[2022-03-31] MEDS: CEROVITE ADV FORMULA TAB PO SCH (08:35)
[2022-03-31] MEDS: ATORVASTATIN 40 MG TAB PO SCH (08:35)
[2022-03-31] MEDS: SYSTANE OP SCH ×3 (08:36→21:36)
[2022-03-31] MEDS: ENOXAPARIN INJ 40 MG/0.4 ML SYR SQ SCH (08:37)
[2022-03-31] MEDS: cycloSPORINE (RESTASIS) OP SCH ×2 (08:38→21:37)
[2022-03-31] MEDS: INSULIN ASPART PER UNIT SC SCH ×4 (09:16→21:37)
[2022-03-31] MEDS: ACETAMINOPHEN 325 MG TAB PO PRN ×2 (12:19→21:36)
--- NOTE | 2022-03-31 14:46 | Hospitalist Progress Note ---
Date of Service March 31, 2022 Assessment & Plan (1) Fall: Plan: - No acute fractures seen on imaging but some chest wall/shoulder contusion - PT/OT eval pending - Fall precautions (2) Dementia: Plan: -Vascular dementia- Seems pretty advanced, Oriented to self only. EEG for completeness pending. -Follows with Dr. Zhong with neurology as an outpatient- recommended memory unit. -Son, Fidel, reported that [facility] has accepted the patient at their facility, daughter just needs to sign forms, case management to help further with placement - Per admitting hospitalist who discussed with daughter at bedside and brother over the phone. Brother describes that they do not always see eye to eye. He defers back to his sister to make the decision for code status. (3) Type 2 diabetes mellitus with insulin therapy: Plan: A1c 8.4, on SSI, will not be aggressive with her diabetic control given her comorbidities (4) Hypothyroidism: Plan: -Continue levothyroxine, TSH 2.55 on admission (5) Hyperlipidemia: Plan: -Continue statin therapy (6) HTN (hypertension): Plan: - Stable on home HCTZ 12.5 mg- will hold if poor oral intake (7) Diabetic peripheral neuropathy: Plan: -Noted, stable (8) CKD (chronic kidney disease), stage III: Plan: Cr stable at baseline, Currently 0.8 Plan: Transaminitis- mild, stable, check intermittently DVT ppx: sc lovenox Code status: Needs to be further discussed by the patient's children who are her POA. Dispo: Pending PT/OT eval- possibly will be transferred to memory unit from here Admission and Anticipated Discharge Date Admission Date: March 29, 2022 Subjective She is more awake and alert today. Daughter at bedside, states this is how she looks at baseline. She is alert, oriented to self only. Keeps replying 'how about that?' rather than answering the questions being asked. Seems advanced dementia. She did not recall what she had for breakfast or what she ordered for lunch. She did not know her birthday or address. Daughter states she was started on buspar back in February by PCP for anxiety and thinks if this might be related to her intermittent behavioral changes and falls. Daughter states she gets confused intermittently around 5 o clock. Also states she likes to walk, at night and is supposed to be on her shoes but when found during her falls, she was not on her shoes and thinks it might be related. Daughter also states she is blind in her right eye and gets out from her right side in bed- states both her falls were in her bedroom at night time. They are looking for a memory care unit for her per Dr Burleson's recommendations but they are wondering whether she will need to go to skilled memory unit. Physical Exam Physical Exam: General: Elderly female, lying comfortably in bed, not in distress, on room air HEENT: Ecchymoses over left face, frontal scalp swelling Chest: Clear breath sounds bilaterally, no wheezes or crackles CVS: Regular rate and rhythm, normal heart sounds, no murmur Abdomen: Soft, non tender, not distended, normal bowel sounds Neuro: Awake, alert, oriented to self, not able to have meaningful conversation- she denies any fall or injuries Extremities: No cyanosis, clubbing or edema Skin: multiple ecchymoses on her face, right arms and legs Results & Data Results & Data ([facility]) Vital Signs (Past 12 Hours) Vital Signs Temp Pulse Resp BP Pulse Ox 03/31/22 07:34 36.8 C 78 18 144/77 H 97 Laboratory Results Short CBC 03/31/22 Range/Units 06:00 WBC 6.05 (4.8-10.8) K/uL Hgb 12.0 (12.0-16.0) g/dL Hct 35.9 L (37-47) % Plt Count 185 (130-400) K/uL BMP 03/31/22 06:00 Sodium 132 L Potassium 3.6 Chloride 98 Carbon Dioxide 26 BUN 23 Creatinine 0.80 Glucose 210 H Calcium 8.4 L Cardiac Enzymes 03/31/22 Range/Units 06:00 Total Creatine Kinase 95 (26-192) U/L Liver Function 03/31/22 Range/Units 06:00 Total Bilirubin 1.7 H (0.2-1.0) mg/dl Direct Bilirubin 0.2 (0-0.2) mg/dl AST 57 H (13-39) U/L ALT 75 H (7-52) U/L Alkaline Phosphatase 120 H (34-104) U/L Albumin 3.4 (3.4-5.0) gm/dl Medications Administered Current Inpatient Medications Acetaminophen (Acetaminophen 325 Mg Tab) 650 mg PO Q4H PRN PRN Reason: Moderate Pain Stop: 04/28/22 16:28 Last Admin: 03/31/22 12:19 Dose: 650 mg Documented by: Aspirin (Aspirin 81 Mg Ectab) 81 mg PO DAILY [facility] Stop: 04/29/22 08:59 Last Admin: 03/31/22 08:35 Dose: 81 mg Documented by: Atorvastatin Calcium (Atorvastatin 40 Mg Tab) 40 mg PO DAILY [facility] Stop: 04/29/22 08:59 Last Admin: 03/31/22 08:35 Dose: 40 mg Documented by: Buspirone HCl (Buspirone 5 Mg Tab) 5 mg PO BID [facility] Stop: 04/28/22 20:59 Last Admin: 03/31/22 08:35 Dose: 5 mg Documented by: Citalopram Hydrobromide (Citalopram 40 Mg Tab) 40 mg PO DAILY [facility] Stop: 04/29/22 08:59 Last Admin: 03/31/22 08:35 Dose: 40 mg Documented by: Cyclosporine (Cyclosporine (Restasis)) 1 drops OP BID [facility] Stop: 04/29/22 20:59 Last Admin: 03/31/22 08:38 Dose: 1 drops Documented by: Dextrose (Dextrose 50% 50 Ml Syringe) 25 - 50 ml IV UD PRN; Protocol PRN Reason: Hypoglycemia Protocol Stop: 04/28/22 16:28 Enoxaparin Sodium (Enoxaparin Inj 40 Mg/0.4 Ml Syr) 40 mg SQ QAM [facility] Stop: 04/29/22 08:59 Last Admin: 03/31/22 08:37 Dose: 40 mg Documented by: Glucagon (Glucagon For Inj 1 Mg Vial) 1 mg SQ UD PRN; Protocol PRN Reason: Hypoglycemia Protocol Stop: 04/28/22 16:28 Glucose (Glucose 10 Tabs/Tube) 4 - 8 tabs PO UD PRN; Protocol PRN Reason: Hypoglycemia Protocol Stop: 04/28/22 16:28 Glucose (Glucose 40% Gel 15 Gm Tube) 15 - 30 gm PO UD PRN; Protocol PRN Reason: Hypoglycemia Protocol Stop: 04/28/22 16:28 Hydrochlorothiazide (Hydrochlorothiazide 25 Mg Tab) 12.5 mg PO QAM [facility] Stop: 04/29/22 08:59 Last Admin: 03/31/22 08:35 Dose: 12.5 mg Documented by: Insulin Aspart (Insulin Aspart Per Unit) 0 units SC ACHS [facility] Stop: 04/28/22 16:29 Last Admin: 03/31/22 13:27 Dose: 5 units Documented by: Levothyroxine Sodium (Levothyroxine Sodium 75 Mcg Tablet) 75 mcg PO DAILYBB [facility] Stop: 04/29/22 06:29 Last Admin: 03/31/22 05:53 Dose: 75 mcg Documented by: Miscellaneous (Carbohydrates For Hypoglycemia ) 15 - 30 gm PO UD PRN PRN Reason: Hypoglycemia Protocol Stop: 04/28/22 16:28 Multivitamins/Minerals (Cerovite Adv Formula Tab) 1 tab PO DAILY [facility] Stop: 04/29/22 08:59 Last Admin: 03/31/22 08:35 Dose: 1 tab Documented by: *Systane* Non- Formulary Patient's Own Med 1 ea OP TID [facility] Stop: 04/29/22 20:59 Last Admin: 03/31/22 13:26 Dose: 1 drops Documented by: Ondansetron HCl (Ondansetron Inj 2 Mg/Ml 2 Ml Vial) 4 mg IV Q4H PRN PRN Reason: Nausea And Vomiting Stop: 04/28/22 16:28
[2022-03-31] MEDS: QUEtiapine FUMARATE 25 MG TABLET PO PRN (17:28)
[2022-03-31] MEDS: MELATONIN 3 MG TAB PO SCH (21:36)
[2022-04-01] MEDS: LEVOTHYROXINE SODIUM 75 MCG TABLET PO SCH (06:20)
[2022-04-01] MEDS: INSULIN ASPART PER UNIT SC SCH ×4 (11:22→21:22)
[2022-04-01] MEDS: ASPIRIN 81 MG ECTAB PO SCH (11:22)
[2022-04-01] MEDS: CITALOPRAM 40 MG TAB PO SCH (11:23)
[2022-04-01] MEDS: cycloSPORINE (RESTASIS) OP SCH ×2 (11:23→20:44)
[2022-04-01] MEDS: ENOXAPARIN INJ 40 MG/0.4 ML SYR SQ SCH (11:23)
[2022-04-01] MEDS: ATORVASTATIN 40 MG TAB PO SCH (11:23)
[2022-04-01] MEDS: hydroCHLOROthiazide 25 MG TAB PO SCH (11:23)
[2022-04-01] MEDS: CEROVITE ADV FORMULA TAB PO SCH (11:24)
[2022-04-01] MEDS: SYSTANE OP SCH ×3 (11:24→20:43)
--- NOTE | 2022-04-01 16:39 | Hospitalist Progress Note ---
Date of Service April 01, 2022 Assessment & Plan (1) Fall: Plan: - No acute fractures seen on imaging but some chest wall/shoulder contusion - PT/OT recommended SNF - Fall precautions (2) Dementia: Plan: -Vascular dementia- Seems pretty advanced, Oriented to self only. EEG for completeness pending but doubt seizure as cause of fall. I think her cognitive status and right blindness is causing a role here in her falls and she would require supervision to prevent falls from happening, tammy during evening and night hours when she own. -Follows with Dr. Zhong with neurology as an outpatient- recommended memory unit. - Patient required some seroquel yesterday because of agitation and impulsiveness and seemed to work well for her- will continue on prn basis tammy for owning and agitation. I tigertexted Dr Burleson to update her per her daughter's request (3) Type 2 diabetes mellitus with insulin therapy: Plan: A1c 8.4, on SSI, will not be aggressive with her diabetic control given her comorbidities (4) Hypothyroidism: Plan: -Continue levothyroxine, TSH 2.55 on admission (5) Hyperlipidemia: Plan: -Continue statin therapy (6) HTN (hypertension): Plan: - Stable on home HCTZ 12.5 mg- will hold if poor oral intake (7) Diabetic peripheral neuropathy: Plan: -Noted, stable (8) CKD (chronic kidney disease), stage III: Plan: Cr stable at baseline, Currently 0.8 Plan: Transaminitis- mild, stable, check intermittently DVT ppx: sc lovenox Code status: Spoke with daughter Marine who read her living will from 2012 which designates her and her brother as POA but does not say about CPR explicitly. She will reach out to her brother to decide. Continue full code for now. Dispo: PT OT recommended SNF. Plan to discharge to SNF tomorrow and transfer to memory care from there Updated daughter Marine over the phone Admission and Anticipated Discharge Date Admission Date: March 29, 2022 Subjective She was sleepy but easily arousable. Denies any pain or issues. No fever, chills, chest pain, shortness of breath. Events from last evening and overnight noted. Physical Exam Physical Exam: General: Elderly female, lying comfortably in bed, not in distress, on room air HEENT: Ecchymoses over left face, frontal scalp swelling Chest: Clear breath sounds bilaterally, no wheezes or crackles CVS: Regular rate and rhythm, normal heart sounds, no murmur Abdomen: Soft, non tender, not distended, normal bowel sounds Neuro: Sleepy but easily arousable, not able to have meaningful conversation Extremities: No cyanosis, clubbing or edema Skin: multiple ecchymoses on her face, right arms and legs Results & Data Results & Data ([facility]) Vital Signs (Past 12 Hours) Vital Signs Temp Pulse Resp BP Pulse Ox 04/01/22 14:03 36.5 C 69 16 111/63 96 04/01/22 07:11 36.5 C 69 16 115/65 97
[2022-04-01] MEDS: MELATONIN 3 MG TAB PO SCH (20:42)
[2022-04-02] MEDS: LEVOTHYROXINE SODIUM 75 MCG TABLET PO SCH (05:24)
[2022-04-02] MEDS: ASPIRIN 81 MG ECTAB PO SCH ×2 (09:41→10:37)
[2022-04-02] MEDS: ATORVASTATIN 40 MG TAB PO SCH ×2 (09:41→10:37)
[2022-04-02] MEDS: cycloSPORINE (RESTASIS) OP SCH ×3 (09:41→20:26)
[2022-04-02] MEDS: CITALOPRAM 40 MG TAB PO SCH ×2 (09:41→10:36)
[2022-04-02] MEDS: CEROVITE ADV FORMULA TAB PO SCH (09:41)
[2022-04-02] MEDS: hydroCHLOROthiazide 25 MG TAB PO SCH ×2 (09:41→10:37)
[2022-04-02] MEDS: SYSTANE OP SCH ×4 (09:42→20:26)
[2022-04-02] MEDS: INSULIN ASPART PER UNIT SC SCH ×4 (09:45→20:28)
[2022-04-02] MEDS: ENOXAPARIN INJ 40 MG/0.4 ML SYR SQ SCH ×2 (09:45→10:38)
--- NOTE | 2022-04-02 13:45 | Hospitalist Progress Note ---
Date of Service April 02, 2022 Assessment & Plan (1) Fall: Plan: - No acute fractures seen on imaging but some chest wall/shoulder contusion - PT/OT recommended SNF - Fall precautions (2) Dementia: Plan: -Vascular dementia- Seems pretty advanced, Oriented to self only. EEG for completeness pending but doubt seizure as cause of fall. 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 -Follows with Dr. Zhong with neurology as an outpatient- recommended memory unit. - Seroquel 12.5 mg po daily prn for agitation and impulsiveness- this is also what was recommended by her prior psychiatrist in 2016 (they did not recommend haldol or risperidal etc) (3) Type 2 diabetes mellitus with insulin therapy: Plan: A1c 8.4, on SSI, will not be aggressive with her diabetic control given her comorbidities (4) Hypothyroidism: Plan: -Continue levothyroxine, TSH 2.55 on admission (5) Hyperlipidemia: Plan: -Continue statin therapy (6) HTN (hypertension): Plan: - Stable on home HCTZ 12.5 mg- will hold if poor oral intake (7) Diabetic peripheral neuropathy: Plan: -Noted, stable (8) CKD (chronic kidney disease), stage III: Plan: Cr stable at baseline, Currently 0.8 Plan: Transaminitis- mild, stable, check intermittently DVT ppx: sc lovenox Code status: DNR/DNI per POA ( steven Hawthorne who spoke to her brother and in agreement) Dispo: PT OT recommended SNF. Plan to transition to memory care unit after SNF- Placement issues Updated steven Hawthorne over the phone Admission and Anticipated Discharge Date Admission Date: March 29, 2022 Physical Exam Physical Exam: General: Elderly female, lying comfortably in bed, not in distress, on room air HEENT: Ecchymoses over left face, frontal scalp swelling Chest: Clear breath sounds bilaterally, no wheezes or crackles CVS: Regular rate and rhythm, normal heart sounds, no murmur Abdomen: Soft, non tender, not distended, normal bowel sounds Neuro: Sleepy but easily arousable, not able to have meaningful conversation Extremities: No cyanosis, clubbing or edema Skin: multiple ecchymoses on her face, right arms and legs Results & Data Results & Data ([facility]) Vital Signs (Past 12 Hours) Vital Signs Temp Pulse Resp BP Pulse Ox 04/02/22 08:32 36.6 C 71 16 117/77 98 Medications Administered Current Inpatient Medications Acetaminophen (Acetaminophen 325 Mg Tab) 650 mg PO Q4H PRN PRN Reason: Moderate Pain Stop: 04/28/22 16:28 Last Admin: 03/31/22 21:36 Dose: 650 mg Documented by: Aspirin (Aspirin 81 Mg Ectab) 81 mg PO DAILY [facility] Stop: 04/29/22 08:59 Last Admin: 04/02/22 10:37 Dose: 81 mg Documented by: Atorvastatin Calcium (Atorvastatin 40 Mg Tab) 40 mg PO DAILY [facility] Stop: 04/29/22 08:59 Last Admin: 04/02/22 10:37 Dose: 40 mg Documented by: Buspirone HCl (Buspirone 5 Mg Tab) 5 mg PO BID [facility] Stop: 04/28/22 20:59 Last Admin: 03/31/22 08:35 Dose: 5 mg Documented by: Citalopram Hydrobromide (Citalopram 40 Mg Tab) 40 mg PO DAILY [facility] Stop: 04/29/22 08:59 Last Admin: 04/02/22 10:36 Dose: 40 mg Documented by: Cyclosporine (Cyclosporine (Restasis)) 1 drops OP BID [facility] Stop: 04/29/22 20:59 Last Admin: 04/02/22 10:26 Dose: 1 drops Documented by: Dextrose (Dextrose 50% 50 Ml Syringe) 25 - 50 ml IV UD PRN; Protocol PRN Reason: Hypoglycemia Protocol Stop: 04/28/22 16:28 Enoxaparin Sodium (Enoxaparin Inj 40 Mg/0.4 Ml Syr) 40 mg SQ QAM [facility] Stop: 04/29/22 08:59 Last Admin: 04/02/22 10:38 Dose: 40 mg Documented by: Glucagon (Glucagon For Inj 1 Mg Vial) 1 mg SQ UD PRN; Protocol PRN Reason: Hypoglycemia Protocol Stop: 04/28/22 16:28 Glucose (Glucose 10 Tabs/Tube) 4 - 8 tabs PO UD PRN; Protocol PRN Reason: Hypoglycemia Protocol Stop: 04/28/22 16:28 Glucose (Glucose 40% Gel 15 Gm Tube) 15 - 30 gm PO UD PRN; Protocol PRN Reason: Hypoglycemia Protocol Stop: 04/28/22 16:28 Hydrochlorothiazide (Hydrochlorothiazide 25 Mg Tab) 12.5 mg PO QAM [facility] Stop: 04/29/22 08:59 Last Admin: 04/02/22 10:37 Dose: 12.5 mg Documented by: Insulin Aspart (Insulin Aspart Per Unit) 0 units SC ACHS [facility] Stop: 04/28/22 16:29 Last Admin: 04/02/22 12:46 Dose: 3 units Documented by: Levothyroxine Sodium (Levothyroxine Sodium 75 Mcg Tablet) 75 mcg PO DAILYBB [facility] Stop: 04/29/22 06:29 Last Admin: 04/02/22 05:24 Dose: 75 mcg Documented by: Melatonin (Melatonin 3 Mg Tab) 6 mg PO HS [facility] Stop: 04/30/22 20:59 Last Admin: 04/01/22 20:42 Dose: 6 mg Documented by: Miscellaneous (Carbohydrates For Hypoglycemia ) 15 - 30 gm PO UD PRN PRN Reason: Hypoglycemia Protocol Stop: 04/28/22 16:28 Multivitamins/Minerals (Cerovite Adv Formula Tab) 1 tab PO DAILY [facility] Stop: 04/29/22 08:59 Last Admin: 04/02/22 09:41 Dose: Not Given Documented by: *Systane* Non- Formulary Patient's Own Med 1 ea OP TID [facility] Stop: 04/29/22 20:59 Last Admin: 04/02/22 10:38 Dose: 1 drops Documented by: Ondansetron HCl (Ondansetron Inj 2 Mg/Ml 2 Ml Vial) 4 mg IV Q4H PRN PRN Reason: Nausea And Vomiting Stop: 04/28/22 16:28 Quetiapine Fumarate (Quetiapine Fumarate 25 Mg Tablet) 12.5 mg PO DAILY PRN PRN Reason: Agitation Stop: 04/30/22 16:59 Last Admin: 03/31/22 17:28 Dose: 12.5 mg Documented by:
[2022-04-02] MEDS: MELATONIN 3 MG TAB PO SCH (20:30)
[2022-04-03] MEDS: LEVOTHYROXINE SODIUM 75 MCG TABLET PO SCH (05:38)
[2022-04-03 06:00] LABS: Basophils # (auto) 0.02 K/uL (0-0.2); Basophils % (auto) 0.3 %; Eosinophils # (auto) 0.19 K/uL (0-0.5); Eosinophils % (auto) 2.9 %; Hematocrit (blood only) 36.9 % (37-47); Hemoglobin 12.4 g/dL (12.0-16.0); Immature Granulocytes # (auto) 0.02 K/uL (0.00-0.02); Immature Granulocytes % (auto) 0.3 %; Lymphocytes # (auto) 0.92 K/uL (1.2-3.4); Lymphocytes % (auto) 14.3 %; Mean Corpuscular Hemoglobin 30.4 pg (25-34); Mean Corpuscular Hgb Conc 33.6 g/dL (32-36); Mean Corpuscular Volume 90.4 fL (80-100); Mean Platelet Volume 10.2 fL (7.4-10.4); Monocytes # (auto) 0.66 K/uL (0.11-0.59); Monocytes % (auto) 10.2 %; Neutrophils # (auto) 4.64 K/uL (1.4-6.5); Platelet Count 230 K/uL (130-400); Red Blood Count 4.08 M/uL (4.2-5.4); White Blood Count 6.45 K/uL (4.8-10.8)
[2022-04-03 06:31] LABS: Albumin Level 3.5 gm/dl (3.4-5.0); BUN Creatinine Ratio 28.6 (10-20); Bilirubin Direct 0.2 mg/dl (0-0.2); Bilirubin,Total 1.4 mg/dl (0.2-1.0); Calcium 8.7 mg/dl (8.5-10.1); Creatinine Clr Calc Pharmacy 53.8 ml/min; Est GFR (African American) 82.2 ml/min; Est GFR (Non-African American) 70.9 ml/min; Magnesium 1.8 mg/dl (1.7-2.4); Phosphorus 2.6 mg/dl (2.5-4.9); Potassium 3.7 mmol/L (3.5-5.1); Total Protein 6.7 gm/dl (6.0-8.3)
[2022-04-03] MEDS: SYSTANE OP SCH ×3 (09:15→20:45)
[2022-04-03] MEDS: ASPIRIN 81 MG ECTAB PO SCH (09:16)
[2022-04-03] MEDS: ATORVASTATIN 40 MG TAB PO SCH (09:16)
[2022-04-03] MEDS: CITALOPRAM 40 MG TAB PO SCH (09:16)
[2022-04-03] MEDS: CEROVITE ADV FORMULA TAB PO SCH (09:16)
[2022-04-03] MEDS: ENOXAPARIN INJ 40 MG/0.4 ML SYR SQ SCH (09:19)
[2022-04-03] MEDS: hydroCHLOROthiazide 25 MG TAB PO SCH (09:20)
[2022-04-03] MEDS: cycloSPORINE (RESTASIS) OP SCH ×2 (09:20→20:46)
[2022-04-03] MEDS: INSULIN ASPART PER UNIT SC SCH ×4 (09:27→20:49)
--- NOTE | 2022-04-03 17:29 | Hospitalist Progress Note ---
Date of Service April 03, 2022 Assessment & Plan (1) Fall: Plan: - No acute fractures seen on imaging but some chest wall/shoulder contusion - PT/OT recommended SNF - Fall precautions (2) Dementia: Plan: -Vascular dementia- Seems pretty advanced, Oriented to self only. EEG for completeness pending but doubt seizure as cause of fall. 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 -Follows with Dr. Zhong with neurology as an outpatient- recommended memory unit. - Seroquel 12.5 mg po daily prn for agitation and impulsiveness- this is also what was recommended by her prior psychiatrist in 2016 (they did not recommend haldol or risperidal etc) (3) Type 2 diabetes mellitus with insulin therapy: Plan: A1c 8.4, on SSI, will not be aggressive with her diabetic control given her comorbidities (4) Hypothyroidism: Plan: -Continue levothyroxine, TSH 2.55 on admission (5) Hyperlipidemia: Plan: -Continue statin therapy (6) HTN (hypertension): Plan: - Stable on home HCTZ 12.5 mg (7) Diabetic peripheral neuropathy: Plan: -Noted, stable (8) CKD (chronic kidney disease), stage III: Plan: Cr stable at baseline, Currently 0.8 Plan: Transaminitis- resolved DVT ppx: sc lovenox Code status: DNR/DNI Dispo: PT OT recommended SNF. Plan to transition to memory care unit after SNF- Placement issues Admission and Anticipated Discharge Date Admission Date: March 29, 2022 Subjective Lying calmly in bed. No new issues. Feels fine. Denies any pain. No fever, shortness of breath, nausea, vomiting. Physical Exam Physical Exam: General: Elderly female, lying comfortably in bed, not in distress, on room air HEENT: Ecchymoses over left face, frontal scalp swelling Chest: Clear breath sounds anteriorly CVS: Regular rate and rhythm, normal heart sounds, no murmur Abdomen: Soft, non tender, not distended, normal bowel sounds Neuro: awake, alert, speaking few words Extremities: No cyanosis, clubbing or edema Skin: multiple ecchymoses on her face, right arms and legs Results & Data Results & Data ([facility]) Vital Signs (Past 12 Hours) Vital Signs Temp Pulse Resp BP Pulse Ox 04/03/22 15:42 36.9 C 106 H 18 120/71 96 04/03/22 07:07 36.8 C 84 18 130/67 98 Laboratory Results Short CBC 04/03/22 Range/Units 05:18 WBC 6.45 (4.8-10.8) K/uL Hgb 12.4 (12.0-16.0) g/dL Hct 36.9 L (37-47) % Plt Count 230 (130-400) K/uL BMP 04/03/22 05:18 Sodium 133 L Potassium 3.7 Chloride 99 Carbon Dioxide 26 BUN 22 Creatinine 0.77 Glucose 188 H Calcium 8.7 Liver Function 04/03/22 Range/Units 05:18 Total Bilirubin 1.4 H (0.2-1.0) mg/dl Direct Bilirubin 0.2 (0-0.2) mg/dl AST 25 (13-39) U/L ALT 37 (7-52) U/L Alkaline Phosphatase 112 H (34-104) U/L Albumin 3.5 (3.4-5.0) gm/dl Medications Administered Current Inpatient Medications Acetaminophen (Acetaminophen 325 Mg Tab) 650 mg PO Q4H PRN PRN Reason: Moderate Pain Stop: 04/28/22 16:28 Last Admin: 03/31/22 21:36 Dose: 650 mg Documented by: Aspirin (Aspirin 81 Mg Ectab) 81 mg PO DAILY [facility] Stop: 04/29/22 08:59 Last Admin: 04/03/22 09:16 Dose: 81 mg Documented by: Atorvastatin Calcium (Atorvastatin 40 Mg Tab) 40 mg PO DAILY [facility] Stop: 04/29/22 08:59 Last Admin: 04/03/22 09:16 Dose: 40 mg Documented by: Buspirone HCl (Buspirone 5 Mg Tab) 5 mg PO BID [facility] Stop: 04/28/22 20:59 Last Admin: 03/31/22 08:35 Dose: 5 mg Documented by: Citalopram Hydrobromide (Citalopram 40 Mg Tab) 40 mg PO DAILY [facility] Stop: 04/29/22 08:59 Last Admin: 04/03/22 09:16 Dose: 40 mg Documented by: Cyclosporine (Cyclosporine (Restasis)) 1 drops OP BID [facility] Stop: 04/29/22 20:59 Last Admin: 04/03/22 09:20 Dose: 1 drops Documented by: Dextrose (Dextrose 50% 50 Ml Syringe) 25 - 50 ml IV UD PRN; Protocol PRN Reason: Hypoglycemia Protocol Stop: 04/28/22 16:28 Enoxaparin Sodium (Enoxaparin Inj 40 Mg/0.4 Ml Syr) 40 mg SQ QAM [facility] Stop: 04/29/22 08:59 Last Admin: 04/03/22 09:19 Dose: 40 mg Documented by: Glucagon (Glucagon For Inj 1 Mg Vial) 1 mg SQ UD PRN; Protocol PRN Reason: Hypoglycemia Protocol Stop: 04/28/22 16:28 Glucose (Glucose 10 Tabs/Tube) 4 - 8 tabs PO UD PRN; Protocol PRN Reason: Hypoglycemia Protocol Stop: 04/28/22 16:28 Glucose (Glucose 40% Gel 15 Gm Tube) 15 - 30 gm PO UD PRN; Protocol PRN Reason: Hypoglycemia Protocol Stop: 04/28/22 16:28 Hydrochlorothiazide (Hydrochlorothiazide 25 Mg Tab) 12.5 mg PO QAM [facility] Stop: 04/29/22 08:59 Last Admin: 04/03/22 09:20 Dose: 12.5 mg Documented by: Insulin Aspart (Insulin Aspart Per Unit) 0 units SC ACHS [facility] Stop: 04/28/22 16:29 Last Admin: 04/03/22 14:07 Dose: 6 units Documented by: Levothyroxine Sodium (Levothyroxine Sodium 75 Mcg Tablet) 75 mcg PO DAILYBB [facility] Stop: 04/29/22 06:29 Last Admin: 04/03/22 05:38 Dose: 75 mcg Documented by: Melatonin (Melatonin 3 Mg Tab) 6 mg PO HS [facility] Stop: 04/30/22 20:59 Last Admin: 04/02/22 20:30 Dose: 6 mg Documented by: Miscellaneous (Carbohydrates For Hypoglycemia ) 15 - 30 gm PO UD PRN PRN Reason: Hypoglycemia Protocol Stop: 04/28/22 16:28 Multivitamins/Minerals (Cerovite Adv Formula Tab) 1 tab PO DAILY [facility] Stop: 04/29/22 08:59 Last Admin: 04/03/22 09:16 Dose: 1 tab Documented by: *Systane* Non- Formulary Patient's Own Med 1 ea OP TID [facility] Stop: 04/29/22 20:59 Last Admin: 04/03/22 14:07 Dose: 1 drops Documented by: Ondansetron HCl (Ondansetron Inj 2 Mg/Ml 2 Ml Vial) 4 mg IV Q4H PRN PRN Reason: Nausea And Vomiting Stop: 04/28/22 16:28 Quetiapine Fumarate (Quetiapine Fumarate 25 Mg Tablet) 12.5 mg PO DAILY PRN PRN Reason: Agitation Stop: 04/30/22 16:59 Last Admin: 03/31/22 17:28 Dose: 12.5 mg Documented by:
[2022-04-03] MEDS: MELATONIN 3 MG TAB PO SCH (20:49)
[2022-04-04] MEDS: LEVOTHYROXINE SODIUM 75 MCG TABLET PO SCH (05:41)
[2022-04-04] MEDS: INSULIN ASPART PER UNIT SC SCH ×3 (09:42→17:28)
[2022-04-04] MEDS: CITALOPRAM 40 MG TAB PO SCH (09:46)
[2022-04-04] MEDS: CEROVITE ADV FORMULA TAB PO SCH (09:46)
[2022-04-04] MEDS: ATORVASTATIN 40 MG TAB PO SCH (09:46)
[2022-04-04] MEDS: hydroCHLOROthiazide 25 MG TAB PO SCH (09:46)
[2022-04-04] MEDS: QUEtiapine FUMARATE 25 MG TABLET PO PRN (09:47)
[2022-04-04] MEDS: SYSTANE OP SCH ×3 (09:47→14:57)
[2022-04-04] MEDS: ENOXAPARIN INJ 40 MG/0.4 ML SYR SQ SCH (09:48)
[2022-04-04] MEDS: cycloSPORINE (RESTASIS) OP SCH (09:58)
[2022-04-04] MEDS: ASPIRIN 81 MG ECTAB PO SCH (11:31)
--- NOTE | 2022-04-04 17:42 | Discharge Summary ---
Date of Service April 04, 2022 Admission HPI Per Admitting Provider This is an 82 yo F with PMhx of vascular dementia, follows with Dr. Zhong, fell on 03/21 and presented here to the ER. She was sent back to the assisted living facility after no obvious fractures were revealed and pain was controlled. Pt returns today due to increase confusions, and another fall which she sustained on 03/25. She has further developed bruising over the right arm, and has worsened in the past two days. Daughter reports staff at the nursing facility have mention that she was crawling out of bed yesterday which is uncommon for her, however daughter notes that they do not keep her walker in her shoes next to bed as she requires assistance to get out of bed. She can ambulate with use of a walker with her shoes on at baseline. Pt is unable to go back to assisted level due the level of assistance she is requiring recently, dressing, changes after bowel movements, etc. Pt was supposedly going to be transitioned to [facility] unit at the end of the month per outpatient record review, as this has been recommended by her neurologist. Today she was reimaged to ensure there were no further acute fractures or injuries; Contusions are present on the R chest wall and right shoulder. No a cute fractures or other injuries were noted. UA is negative for acute infection. No white count, afebrile, hemoglobin is stable at 12.1, sodium is 134 on admission, electrolytes are within normal range. Glucose is elevated at 269 on admission. AST is also elevated at 43. Her daughter is present with her at bedside and supports the history. Admission Exam Per Admitting Provider General: awaken to verbal stimuli, alert to self, not to place or time, no apparent distress Head: Normocephalic, + ecchymosis over the left side of her face, area of ecchymosis under her chin ENT: PERRL, EOMI, no pharyngeal exudate, mucous membranes dry, dentition intact Chest: Clear to auscultation, on room air, no adventitious breath sounds Cardiac: Regular rate and rhythm, + loud systolic ejection murmur, no JVD, normal peripheral pulses, good capillary refill Abdominal: NABS x 4 quadrants, soft, nondistended, nontender to palpation, no rebound or guarding Extremities: Right upper extremity with large areas of ecchymosis on the antecubital region and bicep region, right lateral thigh with area of ecchymosis, left knee with area of ecchymosis, no peripheral edema or erythema, calfs nontender to palpation Psych: Normal mood and affect Neuro: AAO to self, not to time or place, patient does not participate in strength testing, no obvious motor deficits, speech is clear Principal Diagnosis Vascular dementia, fall Discharge Exam General: Elderly female, sitting in chair, not in distress, on room air HEENT: Ecchymoses over left face, frontal scalp swelling- improving Chest: Clear breath sounds anteriorly CVS: Regular rate and rhythm, normal heart sounds, no murmur Abdomen: Soft, non tender, not distended, normal bowel sounds Neuro: awake, alert, speaking few words- at baseline mental status Extremities: No cyanosis, clubbing or edema Skin: multiple ecchymoses on her face, right arms and legs- resoving Discharge Data Allergies Allergy/AdvReac Type Severity Reaction Status Date / Time Cephalosporins Allergy Mild ITCHING Verified 01/22/22 08:17 azithromycin Allergy itching Verified 01/22/22 08:17 clindamycin Allergy Diarrhea Verified 01/22/22 08:17 haloperidol AdvReac Unknown Unknown Uncoded 01/22/22 08:17 risperidone AdvReac Unknown Unknown Uncoded 01/22/22 08:17 Consultations 03/29/22 14:28 ED Decision to Admit Stat Ordered Studies 03/29/22 10:18 CT cervical spine wo con Stat CT chest diagnostic wo con Stat CT head/brain wo con Stat Laboratory Results WBC 6.45 K/uL (4.8-10.8) 04/03/22 05:18 RBC 4.08 M/uL (4.2-5.4) L 04/03/22 05:18 Hgb 12.4 g/dL (12.0-16.0) 04/03/22 05:18 Hct 36.9 % (37-47) L 04/03/22 05:18 MCV 90.4 fL (80-100) 04/03/22 05:18 MCH 30.4 pg (25-34) 04/03/22 05:18 MCHC 33.6 g/dL (32-36) 04/03/22 05:18 RDW Std Deviation 43.0 fL (36.4-46.3) 04/03/22 05:18 RDW Coeff of [place] 13.0 % (11.5-14.5) 04/03/22 05:18 Plt Count 230 K/uL (130-400) 04/03/22 05:18 MPV 10.2 fL (7.4-10.4) 04/03/22 05:18 Immature Gran % (Auto) 0.3 % 04/03/22 05:18 Neut % (Auto) 72.0 % 04/03/22 05:18 Lymph % (Auto) 14.3 % 04/03/22 05:18 [place] % (Auto) 10.2 % 04/03/22 05:18 Eos % (Auto) 2.9 % 04/03/22 05:18 Baso % (Auto) 0.3 % 04/03/22 05:18 Neut # (Auto) 4.64 K/uL (1.4-6.5) 04/03/22 05:18 Lymph # (Auto) 0.92 K/uL (1.2-3.4) L 04/03/22 05:18 [place] # (Auto) 0.66 K/uL (0.11-0.59) H 04/03/22 05:18 Eos # (Auto) 0.19 K/uL (0-0.5) 04/03/22 05:18 Baso # (Auto) 0.02 K/uL (0-0.2) 04/03/22 05:18 Immature Gran # (Auto) 0.02 K/uL (0.00-0.02) 04/03/22 05:18 Sodium 133 mmol/L (136-145) L 04/03/22 05:18 Potassium 3.7 mmol/L (3.5-5.1) 04/03/22 05:18 Chloride 99 mmol/L (98-107) 04/03/22 05:18 Carbon Dioxide 26 mmol/L (21-32) 04/03/22 05:18 Anion Gap 8 (3-11) 04/03/22 05:18 BUN 22 mg/dl (6-23) 04/03/22 05:18 Creatinine 0.77 mg/dl (0.6-1.2) 04/03/22 05:18 Est Cr Clr Drug Dosing 53.8 ml/min 04/03/22 05:18 Est GFR ( Amer) 82.2 ml/min 04/03/22 05:18 Est GFR (Non-Af Amer) 70.9 ml/min 04/03/22 05:18 BUN/Creatinine Ratio 28.6 (10-20) H 04/03/22 05:18 Glucose 188 mg/dl (70-99(Fasting)) H 04/03/22 05:18 POC Glucose 119 mg/dl (70-99) H 04/04/22 16:20 Estimat Average Glucose 194 mg/dl 03/30/22 06:43 Hemoglobin A1c 8.4 % (4.5-5.6) H 03/30/22 06:43 Calcium 8.7 mg/dl (8.5-10.1) 04/03/22 05:18 Phosphorus 2.6 mg/dl (2.5-4.9) 04/03/22 05:18 Magnesium 1.8 mg/dl (1.7-2.4) 04/03/22 05:18 Total Bilirubin 1.4 mg/dl (0.2-1.0) H 04/03/22 05:18 Direct Bilirubin 0.2 mg/dl (0-0.2) 04/03/22 05:18 AST 25 U/L (13-39) 04/03/22 05:18 ALT 37 U/L (7-52) 04/03/22 05:18 Alkaline Phosphatase 112 U/L (34-104) H 04/03/22 05:18 Total Creatine Kinase 95 U/L (26-192) 03/31/22 06:00 Troponin I High Sens 11.8 pg/ml (0-14) 03/29/22 10:36 Total Protein 6.7 gm/dl (6.0-8.3) 04/03/22 05:18 Albumin 3.5 gm/dl (3.4-5.0) 04/03/22 05:18 Globulin 3.1 gm/dl (2.5-4.0) 03/30/22 06:43 Albumin/Globulin Ratio 1.1 (0.9-2) 03/30/22 06:43 TSH 2.599 uIu/ml (0.300-4.500) 03/29/22 10:36 Urine Color Yellow 03/29/22 12:10 Urine Appearance Clear (Clear) 03/29/22 12:10 Urine pH 6.5 (4.5-7.5) 03/29/22 12:10 Ur Specific [place] 1.030 (1.000-1.030) 03/29/22 12:10 Urine Protein Trace (Negative) H 03/29/22 12:10 Urine Glucose (UA) 3+ (Negative) H 03/29/22 12:10 Urine Ketones Trace (Negative) H 03/29/22 12:10 Urine Blood Negative (Negative) 03/29/22 12:10 Urine Nitrite Negative (Negative) 03/29/22 12:10 Urine Bilirubin Negative (Negative) 03/29/22 12:10 Urine Urobilinogen Negative (Negative) 03/29/22 12:10 Ur Leukocyte Esterase Negative (Negative) 03/29/22 12:10 Urine WBC (Auto) 0 /hpf (0-5) 03/29/22 12:10 Urine RBC (Auto) 0-4 /hpf (0-4) 03/29/22 12:10 U Hyaline Cast (Auto) 0 /lpf (0-5) 03/29/22 12:10 U Epithel Cells (Auto) 0-5 /lpf (0-5) 03/29/22 12:10 Urine Bacteria (Auto) Negative (Negative) 03/29/22 12:10 SARS-CoV-2, RNA, NAAT NEGATIVE (NEGATIVE) 04/04/22 Unknown Impressions Cervical Spine CT 03/29/22 10:[address] DOSE: HISTORY: fall TECHNIQUE: Multiaxial CT images of the cervical spine were performed and reformatted in the sagittal and coronal plane without the use of contrast. A dose lowering technique was utilized adhering to the principles of ALARA. COMPARISON: Cervical spine CT 03/21/2022. FINDINGS: No fractures. No subluxation. Prevertebral soft tissues and the C1-C2 interval are intact. No pneumothorax. Degenerative changes again noted. IMPRESSION: No fractures within the cervical spine. ACT 112: Negative or not required by law. Electronically signed by: Juan Carlos Brush M.D. 03/29/2022 11:[address] 03/29/22 10:18 CT OF THE CHEST WITHOUT IV CONTRAST CLINICAL HISTORY: Fall. COMPARISON STUDY: Chest CT May 04, 2009. CT DOSE: 2428.21 mGy.cm TECHNIQUE: Axial images of the chest were obtained without IV contrast. Images were reviewed in the axial, sagittal, and coronal planes. IV contrast was not administered for this examination. Automated exposure control was utilized for the study. A dose lowering technique was utilized adhering to the principles of ALARA. FINDINGS: Subcutaneous stranding overlying the right shoulder and right upper chest wall suggest contusions. No acute fracture is identified within visualized skeletal structures. Cardiomegaly is noted with moderate coronary artery calcification. No pneumothorax or pulmonary contusion is present. Linear and ground glass opacities favor atelectasis. Lungs are suboptimally assessed due to respiratory motion. No thoracic lymphadenopathy is present. Gallstones within the gallbladder noted. Suspected bilateral renal parapelvic cysts are noted. These were shown on prior abdominal CT. There is a splenule. IMPRESSION: 1. Right anterior chest wall and right shoulder contusions. No acute fractures. 2. No additional acute traumatic findings within the chest. ACT 112: Negative or not required by law. Electronically signed by: Micah Vallejo M.D. 03/29/2022 12:[address] 03/29/22 10:[address] DOSE: HISTORY: fall TECHNIQUE: Multiaxial CT images of the head were performed without the use of intravenous contrast. Automated exposure control was utilized for this study. A dose lowering technique was utilized adhering to the principles of ALARA. Comparison: Head CT 03/21/2022. Findings: Mild left frontal scalp swelling is again noted. The paranasal sinuses and mastoid air cells are clear. Calcified right lobe, unchanged. The calvarium and skull base are intact. There is no mass, hematoma, midline shift, acute infa rct. White matter hypodensity is nonspecific but suggestive of microvascular ischemic change. The ventricles and sulci demonstrate mild age-related involutional changes. Motion artifact. Impression: 1. Motion artifact. No definite acute intracranial abnormality. 2. Left frontal scalp swelling again noted. ACT 112: Negative or not required by law. Electronically signed by: Juan Carlos Brush M.D. 03/29/2022 11:03 AM Pelvis X-Ray 03/29/22 10:19 XR pelvis 1-2V routine CLINICAL HISTORY: ?fall COMPARISON: CT of the abdomen and pelvis February 10, 2012. FINDINGS: Sacroiliac joints and symphysis pubis are intact. No acute fracture within the pelvis or hips is present. There is moderate bilateral hip osteoarthritis. No suspicious osseous lesions are identified. Calcified fibroids are incidentally noted. IMPRESSION: No acute fracture within the pelvis or hips. ACT 112: Negative or not required by law. Electronically signed by: Micah Vallejo M.D. 03/29/2022 12:01 PM Shoulder X-Ray 03/29/22 10:19 XR shoulder RT min 2V routine CLINICAL HISTORY: Right shoulder pain following fall. COMPARISON: None FINDINGS: Alignment of the right shoulder is anatomic. There is no acute fracture. There is suspected calcific tendinitis of the right rotator cuff. Moderate osteoarthritis of the right acromioclavicular joint is present. There is also osteoarthritis of the glenohumeral joint. IMPRESSION: No acute fracture or dislocation within the right shoulder. ACT 112: Negative or not required by law. Electronically signed by: Micah Vallejo M.D. 03/29/2022 12:02 PM Knee X-Ray 03/29/22 11:27 RIGHT KNEE 3 VIEWS HISTORY: Right knee pain. fall COMPARISON: None. FINDINGS: There is no fracture or dislocation. Mild chondrocalcinosis. Moderate to severe tricompartmental osteoarthritis within the right knee. No significant knee effusion. No soft tissue swelling. No radiopaque foreign bodies. 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 No acute fractures. ACT 112: Negative or not required by law. Electronically signed by: Juan Carlos Brush M.D. 03/29/2022 12:24 PM Hospital Course (1) Fall: - No acute fractures seen on imaging but some chest wall/shoulder contusion - Seen by PT/OT. Continue Fall precautions (2) Dementia: -Vascular dementia- Seems pretty advanced, Oriented to self only. Doubt seizure as cause of fall, no evidence of any seizure like activities during 6 days of observation, EEG was ordered on admission but it was never done (for unclear reason) but this would anyway be normal when not having seizure activity and would not change release manager at this point- discussed with daughter Marine who agrees. On top, patient is under care of neurology as OP. 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 -Follows with Dr. Zhong with neurology as an outpatient- recommended memory unit. - Seroquel 12.5 mg po daily prn for agitation and impulsiveness- this is also what was recommended by her prior psychiatrist in 2016 (they did not recommend haldol or risperidal etc) (3) Type 2 diabetes mellitus with insulin therapy: A1c 8.4, continue home insulin (4) Hypothyroidism: -Continue levothyroxine, TSH 2.55 on admission (5) Hyperlipidemia: -Continue statin therapy (6) HTN (hypertension): - Stable on home HCTZ 12.5 mg (7) Diabetic peripheral neuropathy: -Noted, stable (8) CKD (chronic kidney disease), stage III: Cr stable at baseline, Currently 0.8 Transaminitis- resolved Patient was awake alert this morning sitting in chair and ready to be discharged. However patient got seroquel and was very sleepy. Later patient woke up and back to her usual mental state. She is comfortable and stable to discharge to [facility]. Spoke with daughter Marine to complete POLST- however she would like it to be completed exactly how her mother stated in her living will back in 2012- she would hence like to review the POLST with her manager clinic to make sure she is respecting her mother's wishes as she stated, however she was unable to reach despite multiple times. I offered her to get completed based on my interpretation of living will but she would like it through the manager clinic, and hence POLST could not be completed prior to discharge. Per [facility] staff at bedside, she can go to [facility] without it getting completed and it was confirmed by RN when she called [facility]. I spoke to the patient's daughter Marine and stated that she can get it completed through the PCP or the physician at [facility]. Total Time Total Time Spent Total Time Spent (In Minutes): 50 Discharge Plan Discharge Items Patient Disposition: Personal Long-Term Reason For Visit: FALL, CONFUSION Discharge Diagnosis: Fall, vascular dementia Activity: Per Instructions section Non-emergency contact: Primary Care Provider Call non-emergency contact if: you have any medication questions and your symptoms worsen Follow-up/Referrals: Lobito Cortez MD [Outside Practitioners] - (Date & Time 04/10/2022 10:00 AM Provider Nicole Horan MD Department General Internal Medicine [facility] ) [facility] [Primary Care Provider] - Diet: Regular Addtl Attending Provider Instructions: You are going to a memory care unit because of your dementia Recommend supervision all the time with activities to prevent falls We are holding buspar at discharge as per discussion with your daughter Marine. You can resume it in future if needed for anxiety. Pending Studies at Discharge: No Stand-Alone Forms: My [facility] [employer], Smoking Cessation Skilled Items Patient informed of condition?: No DNR: Yes Discharge Level of Care: Other Communicable Disease: No Discharge Prognosis: Stable Lines: None Urinary Catheter: No Medications and DC Order Prescriptions: Continued (DME) blood sugar diagnostic Strip See Rx Instructions .ROUTE .MEDSUPPLY Qty: 500 RF: 3 (DME) BD AutoShield Duo Pen Needle 30 gauge x 3/16" needle See Rx Instructions .ROUTE .MEDSUPPLY Qty: 500 RF: 1 (DME) lancets [ReadyLance Safety Lancets] 30 gauge misc See Rx Instructions .Route Qty: 400 RF: 3 [id number] [Urqbwk-Gojko-BDZ (with antiox)] 500-500-66.7 mg tablet 1 tab PO DAILY RF: 0 vitamin E (dl, acetate) 400 unit capsule 450 mg PO DAILY RF: 0 Systane Complete 0.6 % drops 1 drp ophthalmic (eye) TID PRN (Reason: Dry Eye(S)) RF: 0 aspirin [Adult Aspirin Regimen] 81 mg tablet,delayed release (DR/EC) 81 mg PO DAILY RF: 0 atorvastatin 40 mg tablet 40 mg PO DAILY RF: 0 citalopram [Celexa] 40 mg tablet 40 mg PO DAILY RF: 0 levothyroxine 75 mcg tablet 75 mcg PO DAILY RF: 0 calcium carbonate-vitamin D3 [Caltrate with Vitamin D3] 600 mg(1,500mg) -800 unit tablet 1 tab PO DAILY RF: 0 Restasis 0.05 % dropperette 1 drops OP BID RF: 0 vitamins A,C,V-ivqb-ifnrge 1 tab PO DAILY RF: 0 acetaminophen [Tylenol] 325 mg capsule 325 mg PO QID PRN (Reason: Pain) RF: 0 hydrochlorothiazide 25 mg tablet 12.5 mg PO QAM RF: 0 Cerovite Silver Tablet 1 tab PO DAILY RF: 0 insulin asp prt-insulin aspart [Novolog Mix 70-30FlexPen U-100] 100 unit/mL (70-30) insulin pen 25 unit SQ DAILY RF: 0 Discontinued buspirone [BuSpar] 5 mg Tablet 5 mg PO BID RF: 0 Discharge Orders: Discharge Order (Routine); Ordered 04/04/22 Ordered By: Kevin Neri Admission Data Admit Date/Time: 03/29/22 14:36 Attending Provider: Kevin Neri Admit Provider: Christy Bruno I. Primary Care Provider: David Ahn Other Providers: Christy Bruno [place]
== END 2022-04-04 18:55 | disposition home or self-care (01) | DRG 884 ==
LOC: ED 10:01 → SUATTDRO 14:36 → 3N 14:36
DX: E03.9 Hypothyroidism, unspecified; W19.XXXA Unspecified fall, initial encounter; I12.9 Hypertensive chronic kidney disease with stage 1 through stage 4 chronic kidney disease, or unspecified chronic kidney disease; S20.211A Contusion of right front wall of thorax, initial encounter; Z79.4 Long term (current) use of insulin; E78.5 Hyperlipidemia, unspecified; Z88.1 Allergy status to other antibiotic agents; Y92.89 Other specified places as the place of occurrence of the external cause; R29.6 Repeated falls; E11.42 Type 2 diabetes mellitus with diabetic polyneuropathy; Z79.82 Long term (current) use of aspirin; F01.50 Vascular dementia, unspecified severity, without behavioral disturbance, psychotic disturbance, mood disturbance, and anxiety; S40.011A Contusion of right shoulder, initial encounter; N18.30 Chronic kidney disease, stage 3 unspecified; Z88.8 Allergy status to other drugs, medicaments and biological substances; Z79.890 Hormone replacement therapy

== ENCOUNTER 2023-06-15 15:05 | Inpatient (IN) ==
--- NOTE | 2023-06-15 15:15 | Emergency Department Note ---
Impression & Plan Multiple fractures of ribs, Hemothorax on right, Falls frequently, Abdominal wall contusion, Contusion of hip, left ED Provider Note NAME: FELIZ GUZMAN AGE: 83 SEX: F : 1940 ARRIVES VIA: Ambulance INFORMANT: Patient, EMS ED PROVIDER(S): Shan Beaulieu DO CHIEF COMPLAINT: Fall HPI: The patient is an 83-year-old female who presented to the emergency department after a fall. The patient was found on the ground. No other history is available. The patient had no complaints according to the prehospital personnel. It is unclear any other history at this time although the daughter is coming to the hospital to be with her mother. ROS: See above HPI for pertinent positives & negatives. A total of 10 systems reviewed and were otherwise negative. PAST MEDICAL HISTORY: See Below PAST SURGICAL HISTORY: See Below FAMILY HISTORY: See Below SOCIAL HISTORY: See Below HOME MEDICATIONS: See Below ALLERGIES: See Below VITALS: See Below PHYSICAL EXAMINATION: GENERAL: The patient is awake and alert. The patient is nonanxious. EYES: The conjunctivae are clear. The left eye is negative and the pupil is round and reactive. 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 EARS, NOSE, MOUTH AND THROAT: The nose is without any evidence of any deformity. NECK: The neck is nontender and supple. RESPIRATORY: Normal respiratory effort is noted there is no evidence of wheezing rhonchi or rales CARDIOVASCULAR: Regular rate and rhythm noted there no murmurs rubs or gallops normal S1 normal S2. GASTROINTESTINAL: The abdomen is soft. Abdomen is nontender. BACK: No midline tenderness or or step-off noted range of motion in flexion extension as well as rotation no signs of muscle spasm noted MUSCULOSKELETAL/EXTREMITIES: There is no evidence of gross deformity full range of motion is noted in the hips and shoulders. SKIN: There is no obvious evidence of any rash. There are no petechiae, pallor or cyanosis noted. NEUROLOGIC: Patient is awake and alert. She is confused to place and time. She is moving all extremities well. MEDICAL DECISION MAKING: The patient is an 83-year-old female who presented to the emergency department for an evaluation of a fall. She fell today in the living room at the dementia unit. She fell onto her left hip. She also has a history of being in our facility recently 3 days ago after a fall injuring her right side. At that time radiographic studies were obtained but the patient was not found to have any acute injury. The patient presents to the emergency department today because of the left-sided hip pain but her daughter states that she also has significant right-sided pain which has been ongoing since the original fall. I discussed the patient's laboratory and radiographic studies with her and her daughter. She was found to have signs of rib fracture on the right side as well as a hemothorax as well as a abdominal wall contusion. The patient was treated with IV fluids and IV pain medication. She was reevaluated multiple times. I had a long talk with the daughter about her mother's condition. She states that her mother would not want any aggressive measures at this time. I discussed her condition with the on-call [facility] hospitalist. They have agreed to evaluate the patient in the emergency department for further management and disposition. Triage Nursing notes reviewed. Prior medical records reviewed Vital Signs: reviewed and remarkable for no significant abnormalities Differential diagnosis: Fracture, dislocation, contusion, intra-abdominal, pneumothorax, intrathoracic, intracranial, neurologic, compartment syndrome, rhabdomyolysis, as well as other pathologies. ER treatment provided: See below Diagnostics interpreted by me: ECG: none Cardiac Monitoring: An order was placed for continuous cardiac monitoring. The monitor shows a rate of 74 bpm with sinus rhythm. Laboratory studies: As stated above and show below. Imaging studies: See below. Radiographic imaging was reviewed by myself Consultation(s): I discussed this case with Zainab who is on-call for the [facility]ist group. I discussed this case with Dr. Waller who is on-call for the [facility]ist group. I discussed this case with Venkata who is on for the ICU. At this time we will continue to follow along with the patient however if the patient were to become worse or decompensate she may require transfer if she did not wish to have any aggressive procedures at our facility. Past Med/Surg History Medical History CKD (chronic kidney disease), stage III Diabetic peripheral neuropathy HTN (hypertension) Hyperlipidemia Loss of protective sensation of skin of foot Vascular dementia Surgical History History of back surgery Hx of cataract extraction Family History Mother Brain tumor Grandfather No problems noted. Father Heart disease Other No family history of adverse response to anesthesia No family history of bleeding disorder Social History Smoking Status: Unknown if ever smoked Hx Alcohol Use: No Hx Substance Use: No Preferred Language: Thai Communication Ability: Impaired Beliefs That Will Affect Care: None marital status: Current Living Situation: Personal Care Facility current occupational status: retired Feels Safe at Home: Yes Assistive Devices: Walker Allergies Allergies Allergy/AdvReac Type Severity Reaction Status Date / Time azithromycin Allergy Intermediate itching Verified 06/12/23 22:07 Cephalosporins Allergy Intermediate ITCHING Verified 06/12/23 22:07 quetiapine [From Seroquel] Allergy Unknown ON SARAGOSA Verified 06/12/23 22:07 MED LIST clindamycin AdvReac Intermediate Diarrhea Verified 06/12/23 22:07 haloperidol AdvReac Unknown ON SARAGOSA Uncoded 06/12/23 22:07 MED LIST risperidone AdvReac Unknown ON SARAGOSA Uncoded 06/12/23 22:07 MED LIST Home Meds Home Medications Medication Instructions Recorded Confirmed atorvastatin 40 mg tablet 40 mg PO HS 10/25/19 06/15/23 citalopram 40 mg tablet (Celexa) 40 mg PO QAM 10/25/19 06/15/23 levothyroxine 75 mcg tablet 75 mcg PO DAILYBB 10/25/19 06/15/23 cyclosporine 0.05 % eye drops in a 1 drops OPB BID 10/27/19 06/15/23 dropperette (Restasis) acetaminophen 325 mg capsule 325 mg PO Q6H PRN MOD PAIN/TEMP > 01/04/21 06/15/23 (Tylenol) 100.5F calcium carbonate 600 mg-vitamin 1 tab PO QAM 12/01/22 06/15/23 D3 10 mcg (400 unit) tablet (Calcium 600 + D(3)) glucosamine-chondroitin 750 mg-600 1 tab PO QAM 12/01/22 06/15/23 mg tablet ibuprofen 200 mg tablet 200 mg PO Q8H PRN Pain, Moderate 12/01/22 06/15/23 insulin aspar prot-insulin aspart See Rx Instructions .Route .COMPLEX 12/01/22 06/15/23 100 unit/mL (70-30) subcutaneous pen (Novolog Mix 70-30FlexPen U-100) insulin aspart U-100 100 unit/mL 5 unit subcut DIRECTED PRN 12/01/22 06/15/23 (3 mL) subcutaneous pen (Novolog MONTHLY BIRTHDAY TREATS FlexPen U-100 Insulin aspart) mineral oil-isopropyl myristat 1 applic topical HS 12/01/22 06/15/23 lotion igxenata-nke-izcmr acid 0.4 1 tab PO QAM 12/01/22 06/15/23 mg-lycopene 300 mcg-lutein 250 mcg tablet (CertaVite Senior) nut.tx.gluc.intol,lac-free,soy 1 ea PO QAM 12/01/22 06/15/23 (Glucerna Shake oral liquid) vit C 250 mg-vit E 90 mg-zinc 40 1 tab PO BID 12/01/22 06/15/23 mg-copper 1 ev-ivncgw-eukltx capsule (PreserVision AREDS-2) vitamin E 268 mg (400 unit) capsule 268 mg PO DAILY 12/01/22 06/15/23 propylene glycol 0.6 % eye drops 1 drp OPB TID 04/04/23 06/15/23 (Systane Balance) acetaminophen 500 mg tablet 500 mg PO BID 06/12/23 06/15/23 (Tylenol Extra Strength) neomycin-bacitracn Zn-polymyx 3.5 1 applic topical DAILY PRN 06/12/23 06/15/23 mg-400 unit-5,000 unit/gram top NEEDED oint (Neosporin (imy-olo-iyrbz)) Previous Rx's Medication Instructions Recorded pen needle,diabetic dual safty 30 #500 ea 02/07/22 gauge x 3/16" (BD AutoShield Duo Pen Needle) ReadyLance Safety Lancets 30 gauge #400 ea 03/20/22 (lancets) blood sugar diagnostic #500 ea 04/05/22 insulin aspart U-100 100 unit/mL 3 unit (0.03 mL) subcut QDL #15 mL 05/20/23 (3 mL) subcutaneous pen (Novolog FlexPen U-100 Insulin aspart) Results & Data (ED) Vital Signs Vital Signs - 24 hr 06/15/23 15:21 06/15/23 17:05 06/15/23 18:36 Temperature 36.8 C Temperature Source Oral Pulse Rate 85 Pulse Rate [Apical] 85 76 Respiratory Rate 18 18 18 Blood Pressure 149/63 H Blood Pressure [Right Arm] 119/102 H 149/76 H Blood Pressure Mean 91 Blood Pressure Mean [Right Arm] 107 100 Pulse Oximetry 98 99 97 Oxygen Delivery Method Room Air Room Air Sepsis Recent Fever Within 48 Hours No Sepsis New/Unexplained Change in Mental Status N/A Sepsis Action Taken by Nursing No Action Required 06/15/23 18:38 06/15/23 18:43 Temperature Temperature Source Pulse Rate 74 Pulse Rate [Apical] Respiratory Rate Blood Pressure Blood Pressure [Right Arm] Blood Pressure Mean Blood Pressure Mean [Right Arm] Pulse Oximetry 97 Oxygen Delivery Method Room Air Sepsis Recent Fever Within 48 Hours Sepsis New/Unexplained Change in Mental Status Sepsis Action Taken by Intermediate Medications Current Medication List: was personally reviewed by me Laboratory Data Attestation: I reviewed the patient's lab results. 06/15/23 17:38 06/15/23 17:38 Lab Results 06/15/23 06/15/23 06/15/23 Range/Units 17:38 17:38 19:04 WBC 6.59 (4.8-10.8) K/ul RBC 4.13 L (4.20-5.40) M/uL Hgb 12.3 (12.0-16.0) g/dl Hct 37.0 (37.0-47.0) % MCV 89.6 (80.0-100.0) fL MCH 29.8 (25.0-34.0) pg MCHC 33.2 (32.0-36.0) g/dL RDW Std Deviation 44.2 (36.4-46.3) fL RDW Coeff of [place] 13.5 (11.5-14.5) % Plt Count 134 (130-400) K/uL MPV 11.1 (9.4-12.4) fL Immature Gran % (Auto) 0.3 % Neut % (Auto) 74.2 % Lymph % (Auto) 16.1 % [place] % (Auto) 8.2 % Eos % (Auto) 0.9 % Baso % (Auto) 0.3 % Neut # (Auto) 4.89 (1.40-6.50) K/uL Lymph # (Auto) 1.06 L (1.2-3.4) K/uL [place] # (Auto) 0.54 (0.11-0.59) K/uL Eos # (Auto) 0.06 (0-0.50) K/uL Baso # (Auto) 0.02 (0-0.2) K/uL Immature Gran # (Auto) 0.02 (0.01-0.20) K/uL Sodium 134 L (136-145) mmol/L Potassium 4.3 (3.5-5.1) mmol/L Chloride 102 (98-107) mmol/L Carbon Dioxide 26 (21-32) mmol/L Anion Gap 6 (3-11) BUN 40 H (6-23) mg/dl Creatinine 0.94 (0.6-1.2) mg/dl Est Cr Clr Drug Dosing Not Reportable Est GFR ( Amer) 64.1 ml/min Est GFR (Non-Af Amer) 55.3 ml/min BUN/Creatinine Ratio 42.6 H (10-20) Glucose 197 H (70-99(Fasting)) mg/dl Calcium 8.7 (8.6-10.3) mg/dl Total Bilirubin 0.8 (0.2-1.0) mg/dl AST 26 (13-39) U/L ALT 23 (7-52) U/L Alkaline Phosphatase 73 (34-104) U/L Total Protein 6.8 (6.0-8.3) gm/dl Albumin 3.5 (3.4-5.0) gm/dl Globulin 3.3 (2.5-4.0) gm/dl Albumin/Globulin Ratio 1.1 (0.9-2) Lipase 54 (11-82) U/L SARS-CoV-2, RNA, NAAT NEGATIVE (NEGATIVE) Administered Medications Discontinued Medications Acetaminophen (Acetaminophen 500 Mg Tab) 500 mg PO NOW STA Stop: 06/15/23 17:10 Last Admin: 06/15/23 17:40 Dose: 500 mg Documented By: TRAE Sodium Chloride (Nss 1000ml) 500 mls @ 999 mls/hr IV .Q31M ONE Stop: 06/15/23 19:15 Last Infusion: 06/15/23 19:21 Dose: 0 mls/hr Documented By: Admin: 06/15/23 18:50 Dose: 999 mls/hr Documented By: TRAE Morphine Sulfate (Morphine Sulfate 2 Mg/Ml Carp) 1 mg IV NOW STA Stop: 06/15/23 18:24 Last Admin: 06/15/23 18:30 Dose: 1 mg Documented By: TRAE Ondansetron HCl (Ondansetron Inj 2 Mg/Ml 2 Ml Vial) 4 mg IV NOW STA Stop: 06/15/23 18:24 Last Admin: 06/15/23 18:30 Dose: 4 mg Documented By: TRAE Imaging Data Attestation: I personally reviewed and interpreted this imaging study as follows: My Impression: CT of the brain without contrast was obtained in the emergency department. My interpretation is no intracranial hemorrhage or mass effect, final report below. CT of the chest was obtained in the emergency department without contrast my interpretation is fluid in the right hemithorax, rib fractures in the lower right chest wall, final report below. CT of the abdomen and pelvis was obtained in the emergency department. My interpretation is no free air or signs of bowel obstruction, hematoma noted to the right abdominal wall. X-ray of the left hip and pelvis were obtained. My interpretation is no definite fracture. X-rays of the right hip were obtained in the emergency department with right femur, my interpretation is no definite fracture, final report below. Radiologist's Impression: Cervical Spine CT 06/15/23 15:[address] DOSE: HISTORY: Fall. trauma TECHNIQUE: Multiaxial CT images of the cervical spine were performed and reformatted in the sagittal and coronal plane without the use of contrast. A dose lowering technique was utilized adhering to the principles of ALARA. COMPARISON: Cervical spine CT 06/12/2023. FINDINGS: No fractures. No subluxation. Prevertebral soft tissues and the C1-C2 interval are intact. No pneumothorax. Jmji-av-gmfwvlkf degenerative changes again noted. IMPRESSION: No fractures within the cervical spine. ACT 112: Negative or not required by law. Electronically signed by: Juan Carlos Brush M.D. 06/15/2023 4:29 PM Chest X-Ray 06/15/23 15:13 XR chest 1V portable HISTORY: fall COMPARISON: Chest 06/12/2023. FINDINGS: No pneumothorax. No pleural effusions. No focal lung consolidations to suggest a pneumonia. No evidence for pulmonary edema. The cardiac silhouette remains mildly enlarged. There are calcifications within the aortic knob. No acute fractures identified. Stable blunting of the left lateral costophrenic sulcus. This is likely chronic. IMPRESSION: No significant change compared to the prior study. No acute process. ACT 112: Negative or not required by law. Electronically signed by: Juan Carlos Brush M.D. 06/15/2023 4:[address] 06/15/23 15:[address] DOSE: 1147.81 mGy.cm HISTORY: Fall. Trauma. TECHNIQUE: Multiaxial CT images of the head were performed without the use of intravenous contrast. Automated exposure control was utilized for this study. A dose lowering technique was utilized adhering to the principles of ALARA. Comparison: Head CT 06/12/2023. Findings: The paranasal sinuses and mastoid air cells are clear. The calvarium and skull base are intact. There is no mass, hematoma, midline shift, acute infarct. White matter hypodensity is nonspecific but suggestive of microvascular ischemic change. The ventricles and sulci demonstrate mild age-related involutional changes. Calcified right globe, unchanged. Linear hyperdense focus within the left posterior occipital region on images 17 and 18 is consistent with artifact. Impression: No acute intracranial abnormality. Atrophy and microvascular ischemic changes. ACT 112: Negative or not required by law. Electronically signed by: Juan Carlos Brush M.D. 06/15/2023 4:23 PM Hip/Pelvis X-Ray 06/15/23 15:18 XR hip LT 2V w pelvis CLINICAL HISTORY: fall. Left hip pain. COMPARISON STUDY: Pelvis 06/12/2023. FINDINGS: No acute fracture or dislocation within the pelvis or hips. The sacrum is intact. Ovqa-uw-qjoodnim degenerative changes within the pelvis and hips, unchanged. There are calcified uterine fibroids again noted. IMPRESSION: No acute fracture or dislocation within the pelvis or hips. ACT 112: Negative or not required by law. Electronically signed by: Juan Carlos Brush M.D. 06/15/2023 4:31 PM Femur X-Ray 06/15/23 17:04 XR femur RT 2V routine, XR tibia fibula RT 2V CLINICAL HISTORY: fall. Right lower extremity pain. COMPARISON STUDY: None. FINDINGS: No fracture or dislocation within the right femur, right tibia, or right fibula. No knee effusion. Soft tissue swelling within the right lower leg/ankle. Advanced degenerative changes within the right knee and right ankle. Chondrocalcinosis noted within the right knee. IMPRESSION: No fracture or dislocation within the right femur, right tibia, or right fibula. ACT 112: Negative or not required by law. Electronically signed by: Juan Carlos Brush M.D. 06/15/2023 6:35 PM Tibia/Fibula X-Ray 06/15/23 17:04 XR femur RT 2V routine, XR tibia fibula RT 2V CLINICAL HISTORY: fall. Right lower extremity pain. COMPARISON STUDY: None. FINDINGS: No fracture or dislocation within the right femur, right tibia, or right fibula. No knee effusion. Soft tissue swelling within the right lower leg/ankle. Advanced degenerative changes within the right knee and right ankle. Chondrocalcinosis noted within the right knee. IMPRESSION: No fracture or dislocation within the right femur, right tibia, or right fibula. ACT 112: Negative or not required by law. Electronically signed by: Juan Carlos Brush M.D. 06/15/2023 6:35 PM Abdomen/Pelvis CT 06/15/23 17:08 CT chest diagnostic wo con, CT abd pelvis wo con CT DOSE: 2180.46 mGy.cm HISTORY: Right-sided chest pain. Right-sided abdominal pain. fall TECHNIQUE: Multiaxial CT images of the chest , abdomen, and pelvis were performed without contrast. A dose lowering technique was utilized adhering to the principles of ALARA. COMPARISON: Abdomen and pelvis CT 323. Chest CT 02/08/2023. FINDINGS: Chest CT: Mildly displaced right seventh through ninth rib fractures. These demonstrate 2 separate fractures within the anterior and lateral locations. There is a small right hemothorax. Mild right lateral chest/abdominal wall soft tissue contusion. No left pleural effusion. No mediastinal hematoma or lymphadenopathy. Normal caliber esophagus. The heart is mildly enlarged. No pericardial effusion. Moderate coronary artery calcifications are noted. No pne umothorax. A few scattered linear densities seen within the lungs suggestive of scarring and subsegmental atelectasis. Patchy density at the base of the right lower lobe also favors compressive atelectasis from the small right pneumothorax. Small clusters of tree-in-bud nodular opacities within the right lung apex remain unchanged. The central airways are patent. Abdomen/pelvis CT: No pneumoperitoneum. No pneumatosis. No acute fractures identified. Healing/healed right lumbar spine transverse process fractures again noted. The unenhanced liver, spleen, pancreas, and adrenal glands unremarkable. There a few small stones at the neck of the gallbladder. No gallbladder wall thickening. Bilateral peripelvic renal cysts are again noted. There is a small hypodense lesion within the left kidney, unchanged. This also favors a cyst. No hydronephrosis. No retroperitoneal lymphadenopathy or hematoma. No pelvic free fluid. The bladder is unremarkable. Calcified uterine fibroids again noted. Suboptimal evaluation for bowel pathology due to the lack of intravenous and oral contrast. However, there is no definite bowel wall thickening or obstruction. Moderate fecal retention is noted. Colonic diverticulosis. No evidence for acute diverticulitis. IMPRESSION: 1. Mildly displaced right seventh through ninth rib fractures. No pneumothorax. 2. There is a small right-sided hemothorax. 3. Soft tissue contusion within the right lower chest wall/flank. 4. Otherwise, no acute traumatic process within the abdomen or pelvis. 5. Cholelithiasis. 6. Additional findings as described above. ACT 112: Negative or not required by law. Electronically signed by: Juan Carlos Brush M.D. 06/15/2023 5:[address] 06/15/23 17:08 CT chest diagnostic wo con, CT abd pelvis wo con CT DOSE: 2180.46 mGy.cm HISTORY: Right-sided chest pain. Right-sided abdominal pain. fall TECHNIQUE: Multiaxial CT images of the chest , abdomen, and pelvis were performed without contrast. A dose lowering technique was utilized adhering to the principles of ALARA. COMPARISON: Abdomen and pelvis CT 323. Chest CT 02/08/2023. FINDINGS: Chest CT: Mildly displaced right seventh through ninth rib fractures. These demonstrate 2 separate fractures within the anterior and lateral locations. There is a small right hemothorax. Mild right lateral chest/abdominal wall soft tissue contusion. No left pleural effusion. No mediastinal hematoma or lymphadenopathy. Normal caliber esophagus. The heart is mildly enlarged. No pericardial effusion. Moderate coronary artery calcifications are noted. No pneumothorax. A few scattered linear densities seen within the lungs suggestive of scarring and subsegmental atelectasis. Patchy density at the base of the right lower lobe also favors compressive atelectasis from the small right pneumothorax. Small clusters of tree-in-bud nodular opacities within the right lung apex remain unchanged. The central airways are patent. Abdomen/pelvis CT: No pneumoperitoneum. No pneumatosis. No acute fractures identified. Healing/healed right lumbar spine transverse process fractures again noted. The unenhanced liver, spleen, pancreas, and adrenal glands unremarkable. There a few small stones at the neck of the gallbladder. No gallbladder wall thickening. Bilateral peripelvic renal cysts are again noted. There is a small hypodense lesion within the left kidney, unchanged. This also favors a cyst. No hydronephrosis. No retroperitoneal lymphadenopathy or hematoma. No pelvic free fluid. The bladder is unremarkable. Calcified uterine fibroids again noted. Suboptimal evaluation for bowel pathology due to the lack of intravenous and oral contrast. However, there is no definite bowel wall thickening or obstruction. Moderate fecal retention is noted. Colonic diverticulosis. No evidence for acute diverticulitis. IMPRESSION: 1. Mildly displaced right seventh through ninth rib fractures. No pneumothorax. 2. There is a small right-sided hemothorax. 3. Soft tissue contusion within the right lower chest wall/flank. 4. Otherwise, no acute traumatic process within the abdomen or pelvis. 5. Cholelithiasis. 6. Additional findings as described above. ACT 112: Negative or not required by law. Electronically signed by: Juan Carlos Brush M.D. 06/15/2023 5:54 PM Discharge Plan Visit Data Chief Complaint: Fall Stated Complaint: FALL ED Provider: Shan Beaulieu Discharge Problem: Multiple fractures of ribs, Hemothorax on right, Falls frequently, Abdominal wall contusion, Contusion of hip, left Patient Disposition: Being Evaluated by Hospitalist Forms Stand Alone Forms: My [facility] Prescriptions Prescriptions: No Action (DME) BD AutoShield Duo Pen Needle 30 gauge x 3/16" needle See Rx Instructions .ROUTE .MEDSUPPLY Qty: 500 1RF Rx Instructions: Use five times daily for insulin (DME) lancets [ReadyLance Safety Lancets] 30 gauge misc See Rx Instructions .Route Qty: 400 3RF Rx Instructions: Test blood sugars 4 times a day (DME) blood sugar diagnostic Strip See Rx Instructions .ROUTE .MEDSUPPLY Qty: 500 3RF Rx Instructions: Test blood sugar four times a day before meals and at bedtime; more PRN Onetouch Ultra insulin aspart U-100 [Novolog FlexPen U-100 Insulin] 100 unit/mL (3 mL) insulin pen 3 unit SUBCUT QDL Qty: 15 5RF atorvastatin 40 mg tablet 40 mg PO HS Rx Instructions: 8 PM citalopram [Celexa] 40 mg tablet 40 mg PO QAM Rx Instructions: 8 AM levothyroxine 75 mcg tablet 75 mcg PO DAILYBB Rx Instructions: Take first thing in the morning on an empty stomach. Wait 30 min before eating Restasis 0.05 % dropperette 1 drops OPB BID acetaminophen [Tylenol] 325 mg capsule 325 mg PO Q6H PRN (Reason: MOD PAIN/TEMP > 100.5F) ibuprofen 200 mg Tablet 200 mg PO Q8H PRN (Reason: Pain, Moderate) vitamin E 268 mg (400 unit) Capsule 268 mg PO DAILY Eucerin Lotion 1 applic TOPICAL HS Rx Instructions: APPLY TO FEET glucosamine-chondroitin 750-600 mg Tablet 1 tab PO QAM Rx Instructions: 8 AM Glucerna Shake Liquid 1 ea PO QAM Rx Instructions: 8AM CertaVite Senior 0.4 mg-300 mcg- 250 mcg Tablet 1 tab PO QAM Rx Instructions: 8 AM calcium carbonate-vitamin D3 [Calcium 600 + D(3)] 600 mg-10 mcg (400 unit) Tablet 1 tab PO QAM Rx Instructions: 8AM PreserVision AREDS-2 250-90-40-1 mg Capsule 1 tab PO BID insulin asp prt-insulin aspart [Novolog Mix 70-30FlexPen U-100] 100 unit/mL (70-30) insulin pen See Rx Instructions .ROUTE .COMPLEX Rx Instructions: TAKES 14 units before breakfast; 10 units before supper;Fax blood glucose levels on , insulin aspart U-100 [Novolog FlexPen U-100 Insulin] 100 unit/mL (3 mL) insulin pen 5 unit subcut DIRECTED PRN (Reason: MONTHLY BIRTHDAY TREATS) Systane Balance 0.6 % Drops 1 drp OPB TID Neosporin (rbl-eeb-jljty) 3.5mg-400 unit- 5,000 unit/gram Ointment 1 applic TOPICAL DAILY PRN (Reason: NEEDED ) Rx Instructions: APPLY TO LEFT BIG TOE, COVER WITH BANDAID. acetaminophen [Tylenol Extra Strength] 500 mg Tablet 500 mg PO BID Rx Instructions: 8 AM, 8PM Referrals Referrals: Lobito Cortez MD [Primary Care Provider] - Multiple fractures of ribs Qualifiers: Encounter type: subsequent encounter Fracture type: closed Laterality: right Abdominal wall contusion Qualifiers: Encounter type: subsequent encounter Qualified Code(s): S30.1XXD - Contusion of abdominal wall, subsequent encounter Contusion of hip, left Qualifiers: Encounter type: initial encounter Qualified Code(s): S70.02XA - Contusion of left hip, initial encounter
--- NOTE | 2023-06-15 16:25 | CT Scan Report ---
HEAD CT NONCONTRAST CT DOSE: 1147.81 mGy.cm HISTORY: Fall. Trauma. TECHNIQUE: Multiaxial CT images of the head were performed without the use of intravenous contrast. A utomated exposure control was utilized for this study. A dose lowering technique was utilized adheri ng to the principles of ALARA. Comparison: Head CT 06/12/2023. Findings: The paranasal sinuses and mastoid air cells are clear. The calvarium and skull base are int act. There is no mass, hematoma, midline shift, acute infarct. White matter hypodensity is nonspecifi c but suggestive of microvascular ischemic change. The ventricles and sulci demonstrate mild age-rela denis involutional changes. Calcified right globe, unchanged. Linear hyperdense focus within the left p osterior occipital region on images 17 and 18 is consistent with artifact. Impression: No acute intracranial abnormality. Atrophy and microvascular ischemic changes. ACT 112: Negative or not required by law. Electronically signed by: Juan Carlos Brush M.D. 06/15/2023 4:23 PM
--- NOTE | 2023-06-15 16:31 | CT Scan Report ---
CERVICAL SPINE CT CT DOSE: HISTORY: Fall. trauma TECHNIQUE: Multiaxial CT images of the cervical spine were performed and reformatted in the sagittal and coronal plane without the use of contrast. A dose lowering technique was utilized adhering to e principles of ALARA. COMPARISON: Cervical spine CT 06/12/2023. FINDINGS: No fractures. No subluxation. Prevertebral soft tissues and the C1-C2 interval are intact. No pneumothorax. [id number] degenerative changes again noted. IMPRESSION: No fractures within the cervical spine. ACT 112: Negative or not required by law. Electronically signed by: Juan Carlos Brush M.D. 06/15/2023 4:29 PM
--- NOTE | 2023-06-15 16:32 | XRay Report ---
XR hip LT 2V w pelvis CLINICAL HISTORY: fall. Left hip pain. COMPARISON STUDY: Pelvis 06/12/2023. FINDINGS: No acute fracture or dislocation within the pelvis or hips. The sacrum is intact. Mild-to-m oderate degenerative changes within the pelvis and hips, unchanged. There are calcified uterine fibro ids again noted. IMPRESSION: No acute fracture or dislocation within the pelvis or hips. ACT 112: Negative or not required by law. Electronically signed by: Juan Carlos Brush M.D. 06/15/2023 4:31 PM
--- NOTE | 2023-06-15 16:34 | XRay Report ---
XR chest 1V portable HISTORY: fall COMPARISON: Chest 06/12/2023. FINDINGS: No pneumothorax. No pleural effusions. No focal lung consolidations to suggest a pneumonia. No evidence for pulmonary edema. The cardiac silhouette remains mildly enlarged. There are calcifica tions within the aortic knob. No acute fractures identified. Stable blunting of the left lateral cost ophrenic sulcus. This is likely chronic. IMPRESSION: No significant change compared to the prior study. No acute process. ACT 112: Negative or not required by law. Electronically signed by: Juan Carlos Brush M.D. 06/15/2023 4:33 PM
[2023-06-15] MEDS ORDERED: ACETAMINOPHEN 500 MG TAB PO STA (17:09)
--- NOTE | 2023-06-15 17:57 | CT Scan Report ---
CT chest diagnostic wo con, CT abd pelvis wo con CT DOSE: 2180.46 mGy.cm HISTORY: Right-sided chest pain. Right-sided abdominal pain. fall TECHNIQUE: Multiaxial CT images of the chest , abdomen, and pelvis were performed without contrast. A dose lowering technique was utilized adhering to the principles of ALARA. COMPARISON: Abdomen and pelvis CT 323. Chest CT 02/08/2023. FINDINGS: Chest CT: Mildly displaced right seventh through ninth rib fractures. These demonstrate 2 separate fr actures within the anterior and lateral locations. There is a small right hemothorax. Mild right late ral chest/abdominal wall soft tissue contusion. No left pleural effusion. No mediastinal hematoma or lymphadenopathy. Normal caliber esophagus. The heart is mildly enlarged. No pericardial effusion. Mod erate coronary artery calcifications are noted. No pneumothorax. A few scattered linear densities see n within the lungs suggestive of scarring and subsegmental atelectasis. Patchy density at the base of the right lower lobe also favors compressive atelectasis from the small right pneumothorax. Small cl usters of tree-in-bud nodular opacities within the right lung apex remain unchanged. The central airw ays are patent. Abdomen/pelvis CT: No pneumoperitoneum. No pneumatosis. No acute fractures identified. Healing/healed right lumbar spine transverse process fractures again noted. The unenhanced liver, spleen, pancreas, and adrenal glands unremarkable. There a few small stones at the neck of the gallbladder. No gallbla dder wall thickening. Bilateral peripelvic renal cysts are again noted. There is a small hypodense le michael within the left kidney, unchanged. This also favors a cyst. No hydronephrosis. No retroperitonea l lymphadenopathy or hematoma. No pelvic free fluid. The bladder is unremarkable. Calcified uterine f ibroids again noted. Suboptimal evaluation for bowel pathology due to the lack of intravenous and ora l contrast. However, there is no definite bowel wall thickening or obstruction. Moderate fecal retent ion is noted. Colonic diverticulosis. No evidence for acute diverticulitis. IMPRESSION: 1. Mildly displaced right seventh through ninth rib fractures. No pneumothorax. 2. There is a small right-sided hemothorax. 3. Soft tissue contusion within the right lower chest wall/flank. 4. Otherwise, no acute traumatic process within the abdomen or pelvis. 5. Cholelithiasis. 6. Additional findings as described above. ACT 112: Negative or not required by law. Electronically signed by: Juan Carlos Brush M.D. 06/15/2023 5:54 PM
[2023-06-15 18:04] LABS: Basophils # (auto) 0.02 K/uL (0-0.2); Basophils % (auto) 0.3 %; Eosinophils # (auto) 0.06 K/uL (0-0.50); Eosinophils % (auto) 0.9 %; Hemoglobin 12.3 g/dl (12.0-16.0); Immature Granulocytes # (auto) 0.02 K/uL (0.01-0.20); Immature Granulocytes % (auto) 0.3 %; Lymphocytes # (auto) 1.06 K/uL (1.2-3.4); Lymphocytes % (auto) 16.1 %; Mean Corpuscular Hemoglobin 29.8 pg (25.0-34.0); Mean Corpuscular Hgb Conc 33.2 g/dL (32.0-36.0); Mean Corpuscular Volume 89.6 fL (80.0-100.0); Mean Platelet Volume 11.1 fL (9.4-12.4); Monocytes # (auto) 0.54 K/uL (0.11-0.59); Monocytes % (auto) 8.2 %; Neutrophils # (auto) 4.89 K/uL (1.40-6.50); Neutrophils % (auto) 74.2 %; Platelet Count 134 K/uL (130-400); RDW Coefficient of Variation 13.5 % (11.5-14.5); RDW Standard Deviation 44.2 fL (36.4-46.3); Red Blood Count 4.13 M/uL (4.20-5.40); White Blood Count 6.59 K/ul (4.8-10.8)
[2023-06-15 18:22] LABS: Alanine Aminotransferase 23 U/L (7-52); Albumin Globulin Ratio 1.1 (0.9-2); Albumin Level 3.5 gm/dl (3.4-5.0); Alkaline Phosphatase 73 U/L (34-104); Anion Gap 6 (3-11); Aspartate Aminotransferase 26 U/L (13-39); BUN Creatinine Ratio 42.6 (10-20); Bilirubin,Total 0.8 mg/dl (0.2-1.0); Blood Urea Nitrogen 40 mg/dl (6-23); Calcium 8.7 mg/dl (8.6-10.3); Carbon Dioxide 26 mmol/L (21-32); Chloride 102 mmol/L (98-107); Est GFR (African American) 64.1 ml/min; Est GFR (Non-African American) 55.3 ml/min; Globulin 3.3 gm/dl (2.5-4.0); Glucose 197 mg/dl (70-99(Fasting)); Lipase 54 U/L (11-82); Potassium 4.3 mmol/L (3.5-5.1); Sodium 134 mmol/L (136-145); Total Protein 6.8 gm/dl (6.0-8.3)
[2023-06-15] MEDS ORDERED: ONDANSETRON INJ 2 MG/ML 2 ML VIAL IV STA (18:23)
[2023-06-15] MEDS ORDERED: MoRPHine SULFATE 2 MG/ML CARP IV STA (18:23)
--- NOTE | 2023-06-15 18:37 | XRay Report ---
XR femur RT 2V routine, XR tibia fibula RT 2V CLINICAL HISTORY: fall. Right lower extremity pain. COMPARISON STUDY: None. FINDINGS: No fracture or dislocation within the right femur, right tibia, or right fibula. No knee ef fusion. Soft tissue swelling within the right lower leg/ankle. Advanced degenerative changes within t he right knee and right ankle. Chondrocalcinosis noted within the right knee. IMPRESSION: No fracture or dislocation within the right femur, right tibia, or right fibula. ACT 112: Negative or not required by law. Electronically signed by: Juan Carlos Brush M.D. 06/15/2023 6:35 PM
[2023-06-15] MEDS ORDERED: SODIUM CHLORIDE 0.9% 1000ML 500 ML IV ONE (18:45)
--- NOTE | 2023-06-15 20:41 | Communication Note ---
Date of Service: June 15, [address] Beaulieu in EMD in support of hospitalist admission for rib fractures resulting in small hemothorax that is approx 3 days old. She fell today on to her hip and had repeat imaging of her chest as complaints of right sided chest pain. Currently it is reported that the patient would not want any heroic measures, but family remains unclear if she would want supportive measures or transfer to trauma center if she would worsen needing an intervention. At this time reviewing the images her Hemothorax is small and does not appear to be causing any respiratory distress with her RR, SPo2 or mechanics. Patient is also afebrile with stable HGB. I did speak with Dr. Waller, from medicine who will be admitting her. Need to clarify patient and family goals of care, and recommend following with serial CT scan or CXR in 6-8 hours for worsening of hemothorax. Recommend - to Discuss with Trauma Center in interim. - As this is small, most likely able to reabsorb and hopefully not need evacuated. If they feel that she would want this treated or if acutely worsens then would transfer for surgical evacuation/thoracostomy tube or if emergent would place thoracostomy tube. - Multimodal pain control and splinting of side with ribs with coughing pillow/blanket - 2129- updated by Dr. Waller- family would want no surgical/invasive intervention to include chest tube and will focus on patient comfort Did discuss with Dr. Jean-Baptiste content production specialist Pulmonary/Critical Care [facility] ([facility]-) Note for communication purposes Coding Level of Care Code None
--- NOTE | 2023-06-15 23:28 | History & Physical Report ---
Date of Service June 15, 2023 Assessment & Plan (1) Multiple fractures of ribs: Plan: 83-year-old female past medical significant for hypothyroidism type 2 diabetes, chronic kidney stage III, chronic rhinitis, hypertension, mild protein calorie malnutrition, recurrent UTI, vascular dementia, right eye blindness, generalized anxiety disorder coming from dementia unit with fall and found to have right 7-9 rib fractures and right hemothorax. Fall Mildly displaced right seventh and ninth rib fracture Small right hemothorax Family does not want chest tubes If hemo-increases they want to keep her comfortable We will follow serial CT chest Empiric IV antibiotics with Unasyn and fluids Other imaging studies okay We will monitor Diabetes Insulin sliding scale We will follow blood sugars Hypothyroidism continue Synthroid iv Synthroid for now until speech evaluation Chronic kidney disease stage III Creatinine 0.9 we will follow the labs Hyperlipidemia statin Generalized anxiety disorder Celexa Vascular dementia severe On dementia unit monitor for delirium speech Evaluation for swallowing Frequent falls PT OT when stable DVT prophylaxis SCDs for now Disposition telemetry floor CODE STATUS DNR/DNI as per discussion with the daughter (2) Hemothorax on right: (3) Fall: History of Present Illness Chief Complaint: Fall, right hemothorax and rib fractures Primary Care Provider: Lobito Cortez MD 83-year-old female past medical significant for hypothyroidism type 2 diabetes, chronic kidney stage III, chronic rhinitis, hypertension, mild protein calorie malnutrition, recurrent UTI, vascular dementia, right eye blindness, generalized anxiety disorder coming from dementia unit with fall and found to have right 7-9 rib fractures and right hemothorax. Patient was in ER on June 12 with a fall and imaging studies were okay and she was discharged back to detention. Daughter is in the room. Patient ambulates with a walker. She has severe dementia. Oriented to name. Eats regular food. He is to ambulate well with a walker but since last fall she is walking very slowly and fell again today. Patient is DNR/DNI. Daughter and son are POA. Plan to repeat CT scan to see if there is increasing in hemothorax. Initially daughter seemed okay for chest tube but later after discussing with the brother decided for no chest tubes and to keep her comfortable. Currently patient is afebrile. Hemodynamically stable. Past medical history as mentioned above Past surgical history colonoscopy, processes right eye,, cataract surgery, Social history currently in dementia unit. No smoking no alcohol no drug use as per epic Family history father had liver cancer, mother had colon cancer Allergies Allergy/AdvReac Type Severity Reaction Status Date / Time azithromycin Allergy Intermediate itching Verified 06/12/23 22:07 Cephalosporins Allergy Intermediate ITCHING Verified 06/12/23 22:07 quetiapine [From Seroquel] Allergy Unknown ON HARMONY Verified 06/12/23 22:07 MED LIST clindamycin AdvReac Intermediate Diarrhea Verified 06/12/23 22:07 haloperidol AdvReac Unknown ON HARMONY Verified 06/16/23 01:17 MED LIST risperidone AdvReac Unknown ON HARMONY Verified 06/16/23 01:18 MED LIST Home Medications Medication Instructions Recorded Confirmed Type atorvastatin 40 mg tablet 40 mg PO HS 10/25/19 06/15/23 History citalopram 40 mg tablet (Celexa) 40 mg PO QAM 10/25/19 06/15/23 History levothyroxine 75 mcg tablet 75 mcg PO DAILYBB 10/25/19 06/15/23 History cyclosporine 0.05 % eye drops in a 1 drops OPB BID 10/27/19 06/15/23 History dropperette (Restasis) acetaminophen 325 mg capsule 325 mg PO Q6H PRN MOD PAIN/TEMP > 01/04/21 06/15/23 History (Tylenol) 100.5F pen needle,diabetic dual safty 30 #500 ea 02/07/22 07/23/22 Rx gauge x 3/16" (BD AutoShield Duo Pen Needle) ReadyLance Safety Lancets 30 gauge #400 ea 03/20/22 07/23/22 Rx (lancets) blood sugar diagnostic #500 ea 04/05/22 07/23/22 Rx calcium carbonate 600 mg-vitamin 1 tab PO QAM 12/01/22 06/15/23 History D3 10 mcg (400 unit) tablet (Calcium 600 + D(3)) glucosamine-chondroitin 750 mg-600 1 tab PO QAM 12/01/22 06/15/23 History mg tablet ibuprofen 200 mg tablet 200 mg PO Q8H PRN Pain, Moderate 12/01/22 06/15/23 History insulin aspar prot-insulin aspart See Rx Instructions .Route .COMPLEX 12/01/22 06/15/23 History 100 unit/mL (70-30) subcutaneous pen (Novolog Mix 70-30FlexPen U-100) insulin aspart U-100 100 unit/mL 5 unit subcut DIRECTED PRN 12/01/22 06/15/23 History (3 mL) subcutaneous pen (Novolog MONTHLY BIRTHDAY TREATS FlexPen U-100 Insulin aspart) mineral oil-isopropyl myristat 1 applic topical HS 12/01/22 06/15/23 History lotion tlqrpxrr-lmx-rdvqi acid 0.4 1 tab PO QAM 12/01/22 06/15/23 History mg-lycopene 300 mcg-lutein 250 mcg tablet (CertaVite Senior) nut.tx.gluc.intol,lac-free,soy 1 ea PO QAM 12/01/22 06/15/23 History (Glucerna Shake oral liquid) vit C 250 mg-vit E 90 mg-zinc 40 1 tab PO BID 12/01/22 06/15/23 History mg-copper 1 ed-uzqygb-jrkevh capsule (PreserVision AREDS-2) vitamin E 268 mg (400 unit) capsule 268 mg PO DAILY 12/01/22 06/15/23 History propylene glycol 0.6 % eye drops 1 drp OPB TID 04/04/23 06/15/23 History (Systane Balance) insulin aspart U-100 100 unit/mL 3 unit (0.03 mL) subcut QDL #15 mL 05/20/23 06/15/23 Rx (3 mL) subcutaneous pen (Novolog FlexPen U-100 Insulin aspart) acetaminophen 500 mg tablet 500 mg PO BID 06/12/23 06/15/23 History (Tylenol Extra Strength) neomycin-bacitracn Zn-polymyx 3.5 1 applic topical DAILY PRN 06/12/23 06/15/23 History mg-400 unit-5,000 unit/gram top NEEDED oint (Neosporin (qcf-cum-xydux)) Past Med/Surg History Medical History CKD (chronic kidney disease), stage III Diabetic peripheral neuropathy HTN (hypertension) Hyperlipidemia Loss of protective sensation of skin of foot Vascular dementia Surgical History History of back surgery Hx of cataract extraction Family History Mother Brain tumor Grandfather No problems noted. Father Heart disease Other No family history of adverse response to anesthesia No family history of bleeding disorder Social History Smoking Status: Never smoker Do You Dip or Chew Tobacco: No; Hx Alcohol Use: No Hx Substance Use: No Preferred Language: [place] Communication Ability: Impaired Mortgage Loan Specialist Required: No Beliefs That Will Affect Care: None marital status: Current Living Situation: Personal Care Facility Current Living Situation Comment: [facility] current occupational status: retired Other Information That Helps Us Care for You: No Feels Safe at Home: Yes Safety Concerns: Feels Safe At This Time Assistive Devices: Walker Review of Systems Review of Systems: Unobtainable due to cognitive status Physical Exam Physical Exam: General- alert and awake. Not oriented Head- atraumatic Eyes- right eye blind ENT- oropharynx clear Neck- supple, no JVD. Lungs- clear to auscultation and percussion no added sounds. bruise seen on right lateral rib cage Heart- regular rate rhythm; no murmur, no gallop. Abdomen- normal bowel sounds, soft, nontender, no distension Extremities- mild pretibial edema, no erythema seen Neuro- alert and awake but not oriented.; no facial palsy; no dysarthria;Moves extremities. Skin- warm & dry Results & Data Results & Data Vital Signs (Past 12 Hours) Vital Signs Temp Pulse Pulse Resp BP BP Pulse Ox 06/15/23 20:29 143/101 H 06/15/23 20:00 79 17 98 06/15/23 18:43 74 06/15/23 18:38 97 06/15/23 18:36 76 18 149/76 H 97 06/15/23 17:05 85 18 119/102 H 99 06/15/23 15:21 36.8 C 85 18 149/63 H 98 O2 Del Method 06/15/23 20:29 06/15/23 20:00 Room Air 06/15/23 18:43 06/15/23 18:38 Room Air 06/15/23 18:36 06/15/23 17:05 Room Air 06/15/23 15:21 Room Air Diagnostic Findings Laboratory Results WBC 6.59 K/ul (4.8-10.8) 06/15/23 17:38 RBC 4.13 M/uL (4.20-5.40) L 06/15/23 17:38 Hgb 12.3 g/dl (12.0-16.0) 06/15/23 17:38 Hct 37.0 % (37.0-47.0) 06/15/23 17:38 MCV 89.6 fL (80.0-100.0) 06/15/23 17:38 MCH 29.8 pg (25.0-34.0) 06/15/23 17:38 MCHC 33.2 g/dL (32.0-36.0) 06/15/23 17:38 RDW Std Deviation 44.2 fL (36.4-46.3) 06/15/23 17:38 RDW Coeff of [place] 13.5 % (11.5-14.5) 06/15/23 17:38 Plt Count 134 K/uL (130-400) 06/15/23 17:38 MPV 11.1 fL (9.4-12.4) 06/15/23 17:38 Immature Gran % (Auto) 0.3 % 06/15/23 17:38 Neut % (Auto) 74.2 % 06/15/23 17:38 Lymph % (Auto) 16.1 % 06/15/23 17:38 [place] % (Auto) 8.2 % 06/15/23 17:38 Eos % (Auto) 0.9 % 06/15/23 17:38 Baso % (Auto) 0.3 % 06/15/23 17:38 Neut # (Auto) 4.89 K/uL (1.40-6.50) 06/15/23 17:38 Lymph # (Auto) 1.06 K/uL (1.2-3.4) L 06/15/23 17:38 [place] # (Auto) 0.54 K/uL (0.11-0.59) 06/15/23 17:38 Eos # (Auto) 0.06 K/uL (0-0.50) 06/15/23 17:38 Baso # (Auto) 0.02 K/uL (0-0.2) 06/15/23 17:38 Immature Gran # (Auto) 0.02 K/uL (0.01-0.20) 06/15/23 17:38 Sodium 134 mmol/L (136-145) L 06/15/23 17:38 Potassium 4.3 mmol/L (3.5-5.1) 06/15/23 17:38 Chloride 102 mmol/L (98-107) 06/15/23 17:38 Carbon Dioxide 26 mmol/L (21-32) 06/15/23 17:38 Anion Gap 6 (3-11) 06/15/23 17:38 BUN 40 mg/dl (6-23) H 06/15/23 17:38 Creatinine 0.94 mg/dl (0.6-1.2) 06/15/23 17:38 Est Cr Clr Drug Dosing Not Reportable 06/15/23 17:38 Est GFR ( Amer) 64.1 ml/min 06/15/23 17:38 Est GFR (Non-Af Amer) 55.3 ml/min 06/15/23 17:38 BUN/Creatinine Ratio 42.6 (10-20) H 06/15/23 17:38 Glucose 197 mg/dl (70-99(Fasting)) H 06/15/23 17:38 Calcium 8.7 mg/dl (8.6-10.3) 06/15/23 17:38 Total Bilirubin 0.8 mg/dl (0.2-1.0) 06/15/23 17:38 AST 26 U/L (13-39) 06/15/23 17:38 ALT 23 U/L (7-52) 06/15/23 17:38 Alkaline Phosphatase 73 U/L (34-104) 06/15/23 17:38 Total Protein 6.8 gm/dl (6.0-8.3) 06/15/23 17:38 Albumin 3.5 gm/dl (3.4-5.0) 06/15/23 17:38 Globulin 3.3 gm/dl (2.5-4.0) 06/15/23 17:38 Albumin/Globulin Ratio 1.1 (0.9-2) 06/15/23 17:38 Lipase 54 U/L (11-82) 06/15/23 17:38 SARS-CoV-2, RNA, NAAT NEGATIVE (NEGATIVE) 06/15/23 19:[address] 06/15/23 15:[address] DOSE: HISTORY: Fall. trauma TECHNIQUE: Multiaxial CT images of the cervical spine were performed and reformatted in the sagittal and coronal plane without the use of contrast. A dose lowering technique was utilized adhering to the principles of ALARA. COMPARISON: Cervical spine CT 06/12/2023. FINDINGS: No fractures. No subluxation. Prevertebral soft tissues and the C1-C2 interval are intact. No pneumothorax. [id number]-[id number] degenerative changes again noted. IMPRESSION: No fractures within the cervical spine. ACT 112: Negative or not required by law. Electronically signed by: Juan Carlos Brush M.D. 06/15/2023 4:29 PM Chest X-Ray 06/15/23 15:13 XR chest 1V portable HISTORY: fall COMPARISON: Chest 06/12/2023. FINDINGS: No pneumothorax. No pleural effusions. No focal lung consolidations to suggest a pneumonia. No evidence for pulmonary edema. The cardiac silhouette remains mildly enlarged. There are calcifications within the aortic knob. No acute fractures identified. Stable blunting of the left lateral costophrenic sulcus. This is likely chronic. IMPRESSION: No significant change compared to the prior study. No acute process. ACT 112: Negative or not required by law. Electronically signed by: Juan Carlos Brush M.D. 06/15/2023 4:[address] 06/15/23 15:[address] DOSE: 1147.81 mGy.cm HISTORY: Fall. Trauma. TECHNIQUE: Multiaxial CT images of the head were performed without the use of intravenous contrast. Automated exposure control was utilized for this study. A dose lowering technique was utilized adhering to the principles of ALARA. Comparison: Head CT 06/12/2023. Findings: The paranasal sinuses and mastoid air cells are clear. The calvarium and skull base are intact. There is no mass, hematoma, midline shift, acute infarct. White matter hypodensity is nonspecific but suggestive of microvascular ischemic change. The ventricles and sulci demonstrate mild age-related involutional changes. Calcified right globe, unchanged. Linear hyperdense focus within the left posterior occipital region on images 17 and 18 is consistent with artifact. Impression: No acute intracranial abnormality. Atrophy and microvascular ischemic changes. ACT 112: Negative or not required by law. Electronically signed by: Juan Carlos Brush M.D. 06/15/2023 4:23 PM Hip/Pelvis X-Ray 06/15/23 15:18 XR hip LT 2V w pelvis CLINICAL HISTORY: fall. Left hip pain. COMPARISON STUDY: Pelvis 06/12/2023. FINDINGS: No acute fracture or dislocation within the pelvis or hips. The sacrum is intact. Gybz-pu-qrftsfak degenerative changes within the pelvis and hips, unchanged. There are calcified uterine fibroids again noted. IMPRESSION: No acute fracture or dislocation within the pelvis or hips. ACT 112: Negative or not required by law. Electronically signed by: Juan Carlos Brush M.D. 06/15/2023 4:31 PM Femur X-Ray 06/15/23 17:04 XR femur RT 2V routine, XR tibia fibula RT 2V CLINICAL HISTORY: fall. Right lower extremity pain. COMPARISON STUDY: None. FINDINGS: No fracture or dislocation within the right femur, right tibia, or right fibula. No knee effusion. Soft tissue swelling within the right lower leg/ankle. Advanced degenerative changes within the right knee and right ankle. Chondrocalcinosis noted within the right knee. IMPRESSION: No fracture or dislocation within the right femur, right tibia, or right fibula. ACT 112: Negative or not required by law. Electronically signed by: Juan Carlos Brush M.D. 06/15/2023 6:35 PM Tibia/Fibula X-Ray 06/15/23 17:04 XR femur RT 2V routine, XR tibia fibula RT 2V CLINICAL HISTORY: fall. Right lower extremity pain. COMPARISON STUDY: None. FINDINGS: No fracture or dislocation within the right femur, right tibia, or right fibula. No knee effusion. Soft tissue swelling within the right lower leg/ankle. Advanced degenerative changes within the right knee and right ankle. Chondrocalcinosis noted within the right knee. IMPRESSION: No fracture or dislocation within the right femur, right tibia, or right fibula. ACT 112: Negative or not required by law. Electronically signed by: Juan Carlos Brush M.D. 06/15/2023 6:35 PM Abdomen/Pelvis CT 06/15/23 17:08 CT chest diagnostic wo con, CT abd pelvis wo con CT DOSE: 2180.46 mGy.cm HISTORY: Right-sided chest pain. Right-sided abdominal pain. fall TECHNIQUE: Multiaxial CT images of the chest , abdomen, and pelvis were performed without contrast. A dose lowering technique was utilized adhering to the principles of ALARA. COMPARISON: Abdomen and pelvis CT 323. Chest CT 02/08/2023. FINDINGS: Chest CT: Mildly displaced right seventh through ninth rib fractures. These demonstrate 2 separate fractures within the anterior and lateral locations. There is a small right hemothorax. Mild right lateral chest/abdominal wall soft tissue contusion. No left pleural effusion. No mediastinal hematoma or lymphadenopathy. Normal caliber esophagus. The heart is mildly enlarged. No pericardial effusion. Moderate coronary artery calcifications are noted. No pneumothorax. A few scattered linear densities seen within the lungs suggestive of scarring and subsegmental atelectasis. Patchy density at the base of the right lower lobe also favors compressive atelectasis from the small right pneumothorax. Small clusters of tree-in-bud nodular opacities within the right lung apex remain unchanged. The central airways are patent. Abdomen/pelvis CT: No pneumoperitoneum. No pneumatosis. No acute fractures identified. Healing/healed right lumbar spine transverse process fractures again noted. The unenhanced liver, spleen, pancreas, and adrenal glands unremarkable. There a few small stones at the neck of the gallbladder. No gallbladder wall thickening. Bilateral peripelvic renal cysts are again noted. There is a small hypodense lesion within the left kidney, unchanged. This also favors a cyst. No hydronephrosis. No retroperitoneal lymphadenopathy or hematoma. No pelvic free fluid. The bladder is unremarkable. Calcified uterine fibroids again noted. Suboptimal evaluation for bowel pathology due to the lack of intravenous and oral contrast. However, there is no definite bowel wall thickening or obstruction. Moderate fecal retention is noted. Colonic diverticulosis. No evidence for acute diverticulitis. IMPRESSION: 1. Mildly displaced right seventh through ninth rib fractures. No pneumothorax. 2. There is a small right-sided hemothorax. 3. Soft tissue contusion within the right lower chest wall/flank. 4. Otherwise, no acute traumatic process within the abdomen or pelvis. 5. Cholelithiasis. 6. Additional findings as described above. ACT 112: Negative or not required by law. Electronically signed by: Juan Carlos Brush M.D. 06/15/2023 5:[address] 06/15/23 17:08 CT chest diagnostic wo con, CT abd pelvis wo con CT DOSE: 2180.46 mGy.cm HISTORY: Right-sided chest pain. Right-sided abdominal pain. fall TECHNIQUE: Multiaxial CT images of the chest , abdomen, and pelvis were performed without contrast. A dose lowering technique was utilized adhering to the principles of ALARA. COMPARISON: Abdomen and pelvis CT 323. Chest CT 02/08/2023. FINDINGS: Chest CT: Mildly displaced right seventh through ninth rib fractures. These demonstrate 2 separate fractures within the anterior and lateral locations. There is a small right hemothorax. Mild right lateral chest/abdominal wall soft tissue contusion. No left pleural effusion. No mediastinal hematoma or lymphadenopathy. Normal caliber esophagus. The heart is mildly enlarged. No pericardial effusion. Moderate coronary artery calcifications are noted. No pneumothorax. A few scattered linear densities seen within the lungs suggestive of scarring and subsegmental atelectasis. Patchy density at the base of the right lower lobe also favors compressive atelectasis from the small right pneumothorax. Small clusters of tree-in-bud nodular opacities within the right lung apex remain unchanged. The central airways are patent. Abdomen/pelvis CT: No pneumoperitoneum. No pneumatosis. No acute fractures identified. Healing/healed right lumbar spine transverse process fractures again noted. The unenhanced liver, spleen, pancreas, and adrenal glands unremarkable. There a few small stones at the neck of the gallbladder. No gallbladder wall thickening. Bilateral peripelvic renal cysts are again noted. There is a small hypodense lesion within the left kidney, unchanged. This also favors a cyst. No hydronephrosis. No retroperitoneal lymphadenopathy or hematoma. No pelvic free fluid. The bladder is unremarkable. Calcified uterine fibroids again noted. Suboptimal evaluation for bowel pathology due to the lack of intravenous and oral contrast. However, there is no definite bowel wall thickening or obstruction. Moderate fecal retention is noted. Colonic diverticulosis. No evidence for acute diverticulitis. IMPRESSION: 1. Mildly displaced right seventh through ninth rib fractures. No pneumothorax. 2. There is a small right-sided hemothorax. 3. Soft tissue contusion within the right lower chest wall/flank. 4. Otherwise, no acute traumatic process within the abdomen or pelvis. 5. Cholelithiasis. 6. Additional findings as described above. ACT 112: Negative or not required by law. Electronically signed by: Juan Carlos Brush M.D. 06/15/2023 5:54 PM Code Status & VTE Plan VTE Prophylaxis Plan VTE Prophylaxis will be ordered: Yes (1) Multiple fractures of ribs Encounter type: subsequent encounter Fracture type: closed Laterality: right (3) Fall Encounter type: initial encounter Qualified Code(s): W19.XXXA - Unspecified fall, initial encounter
[2023-06-16] MEDS ORDERED: DEXTROSE 50% 50 ML SYRINGE IV PRN (01:12)
[2023-06-16] MEDS ORDERED: GLUCAGON FOR INJ 1 MG VIAL SQ PRN (01:12)
[2023-06-16] MEDS ORDERED: GLUCOSE 40% GEL 15 GM TUBE PO PRN (01:12)
[2023-06-16] MEDS ORDERED: POLYETHYLENE (MIRALAX) 17 GM PACK PO PRN (01:12)
[2023-06-16] MEDS ORDERED: CARBOHYDRATES FOR HYPOGLYCEMIA PO PRN (01:12)
[2023-06-16] MEDS ORDERED: ONDANSETRON INJ 2 MG/ML 2 ML VIAL IV PRN (01:12)
[2023-06-16] MEDS ORDERED: NITROGLYCERIN SL 0.4 MG/TAB TAB SL PRN (01:12)
[2023-06-16] MEDS ORDERED: GLUCOSE 10 TAB/TUBE PO PRN (01:12)
[2023-06-16] MEDS ORDERED: PHARMACY GLYCEMIC MGMT CONSULT PRN (01:12)
[2023-06-16] MEDS ORDERED: ARTIFICIAL TEARS OP PRN (01:32)
[2023-06-16] MEDS ORDERED: Patient's HEIGHT &/or WEIGHT Needed STA ×2 (01:34→02:58)
[2023-06-16] MEDS: SODIUM CHLORIDE 0.9% 1000ML 1,000 ML IV SCH ×2 (03:10→15:47)
[2023-06-16] MEDS: INSULIN ASPART PER UNIT CHARGE SC SCH ×5 (03:10→22:09)
[2023-06-16] MEDS: LIDOCAINE 5% 1 PATCH TD SCH (03:11)
[2023-06-16] MEDS: AMPICILLIN/SULBACTAM SOD 3,000 MG in 0.9 % SODIUM CHLORIDE 100 ML IV SCH ×3 (04:08→15:48)
--- NOTE | 2023-06-16 04:25 | CT Scan Report ---
Exam(s): CT CHEST Without Contrast EXAM: CT Chest Without Intravenous Contrast CLINICAL HISTORY: Reason for exam: right hemothorax. TECHNIQUE: Axial computed tomography images of the chest without intravenous contrast. CTDI is 19.43 mGy and DLP is 573.96 mGy-cm. Automated exposure control was utilized for the study. A dose lowering technique was utilized adhering to the principles of ALARA. COMPARISON: No relevant prior studies available. FINDINGS: Lungs: Small right pleural effusion, with mild subjacent atelectasis. No pneumothorax or infiltrate. Heart: Mild cardiomegaly. No significant pericardial effusion. No significant coronary artery calcifications. Bones/joints: Degenerative changes of the spine. No acute fracture. No dislocation. Soft tissues: Unremarkable. Vasculature: Atherosclerotic changes of the aorta. No thoracic aortic aneurysm. Lymph nodes: Unremarkable. No enlarged lymph nodes. IMPRESSION: Small right pleural effusion, with mild subjacent atelectasis. Electronically signed by: Arcadio Barrios MD 06/16/23 04:24 AM
[2023-06-16] MEDS ORDERED: LEVOTHYROXINE SODIUM 75 MCG TABLET PO SCH (06:30)
--- NOTE | 2023-06-16 07:24 | Pharmacy Report ---
Pharmacy Glycemic Short Note 2 - Date of Service June 16, 2023 - Glycemic Short BSG Results (Last 24 hours): 06/15/23 06/16/23 06/16/23 17:38 02:39 06:12 Glucose 197 H POC Glucose 180 H 171 H OUTPATIENT ANTIDIABETIC REGIMEN: * Novolog mix 14 units with breakfast, 10 units with dinner ASSESSMENT: * 83 year old with PMHx significant for hypothyroidism, T2DM, CKD III, htn, dementia, s/p fall found to have multiple rib fractures and right hemothorax. Patient is NPO this morning. Fasting BSG 171 mg/dL - will utilize novolog for now. May consider adding on basal insulin if diet started PLAN FOR INPATIENT GLYCEMIC CONTROL: * Hold outpatient oral diabetes medications * Basal insulin * Lantus - hold * Bolus insulin * NovoLog per scale ACHS or Q6hrs while NPO * Goal Range: Low 120 mg/dL - High 160 mg/dL * Correction Factor: 40 mg/dL/unit * Nutritional / Prandial insulin per carb ratio of 1 unit per 12 grams CHO consumed
[2023-06-16] MEDS ORDERED: CEROVITE ADV FORMULA TAB PO SCH (08:00)
[2023-06-16] MEDS ORDERED: ACETAMINOPHEN 500 MG TAB PO SCH (08:00)
[2023-06-16 08:13] LABS: Basophils # (auto) 0.02 K/uL (0-0.2); Basophils % (auto) 0.4 %; Eosinophils # (auto) 0.16 K/uL (0-0.50); Hematocrit (blood only) 33.1 % (37.0-47.0); Hemoglobin 10.9 g/dl (12.0-16.0); Immature Granulocytes # (auto) 0.02 K/uL (0.01-0.20); Immature Granulocytes % (auto) 0.4 %; Lymphocytes # (auto) 1.02 K/uL (1.2-3.4); Mean Corpuscular Hemoglobin 29.5 pg (25.0-34.0); Mean Corpuscular Hgb Conc 32.9 g/dL (32.0-36.0); Mean Corpuscular Volume 89.7 fL (80.0-100.0); Mean Platelet Volume 11.4 fL (9.4-12.4); Monocytes # (auto) 0.55 K/uL (0.11-0.59); Monocytes % (auto) 10.2 %; Neutrophils # (auto) 3.61 K/uL (1.40-6.50); Platelet Count 128 K/uL (130-400); RDW Coefficient of Variation 13.6 % (11.5-14.5); RDW Standard Deviation 44.9 fL (36.4-46.3); Red Blood Count 3.69 M/uL (4.20-5.40); White Blood Count 5.38 K/ul (4.8-10.8)
[2023-06-16 08:26] LABS: BUN Creatinine Ratio 37.7 (10-20); Calcium 8.2 mg/dl (8.6-10.3); Est GFR (Non-African American) 79.4 ml/min; Magnesium 1.7 mg/dl (1.7-2.4); Potassium 4.1 mmol/L (3.5-5.1)
[2023-06-16] MEDS ORDERED: HYDROmorphone INJ 0.5 MG/0.5 ML SYR IV PRN (08:35)
[2023-06-16 08:37] LABS: Estimated Average Glucose 171 mg/dl; Hemoglobin A1C 7.6 % (4.5-5.6)
[2023-06-16] MEDS ORDERED: NON-FORMULARY MEDICATION (Propylene Glycol [Systane Balance] 0.6 % Drops) OPB SCH (09:00)
--- NOTE | 2023-06-16 09:53 | Hospitalist Progress Note ---
Date of Service June 16, 2023 Assessment & Plan (1) Multiple fractures of ribs: Plan: 83-year-old female past medical significant for hypothyroidism type 2 diabetes, chronic kidney stage III, chronic rhinitis, hypertension, mild protein calorie malnutrition, recurrent UTI, vascular dementia, right eye blindness, generalized anxiety disorder coming from dementia unit with fall and found to have right 7-9 rib fractures and right hemothorax. Fall Frequent falls Imaging noted mdly displaced right seventh and ninth rib fracture, Small right hemothorax Per Admitting Dr, Family does not want chest tubes If hemothorax increases they want to keep her comfortable My review of CT chest yesterday and the one at 1AM noted stable small right hemothorax Will follow CT chest this morning Continue empiric IV antibiotics with Unasyn and fluids Called son and daughter who are POA and spoke with them Updated them about findings so far. They reported that they will like to continue DNR status/no ventilation They also stated they would not want chest tube or procedure at this time They stated patient ambulates well with walker They will like to discuss with CM about other options on discharge Will monitor for today and get PT/OT eval tomorrow AM Optimize pain control Went over pain meds with family and they are ok with it Monitor Hb. 10.9 today (was 12.3 yesterday) Diabetes Insulin sliding scale Monitor and manage blood glucose A1c is 7.6 Hypothyroidism Continue Synthroid Chronic kidney disease stage III Creatinine 0.69 today Hyperlipidemia statin Generalized anxiety disorder Celexa Vascular dementia severe On dementia unit Monitor for delirium DVT prophylaxis SCDs for now Disposition telemetry floor CODE STATUS DNR/DNI I spent a total of 55 minutes coordinating, documenting and providing care for this patient excluding time spent in performance of separately billed services (2) Hemothorax on right: (3) Fall: Admission and Anticipated Discharge Date Admission Date: June 15, 2023 Subjective Patient seen and examined. Patient is awake and alert oriented to person only. Review of system limited due to dementia. RN reported patient was complaining of severe pain with movement on the right chest. Physical Exam Constitutional: + well hydrated; no acute distress Eyes: ?Artificial right eye ENMT: external ear and nose normal, oropharynx normal Respiratory: normal respiratory effort, lungs clear to auscultation Cardiovascular: Rate/Rhythm: regular rate and regular rhythm S1 S2 Chest (Breasts): Additional Comments: Tenderness over right lateral chest wall Gastrointestinal (Abdomen): normal bowel sounds, soft, nontender, no hepatosplenomegaly Musculoskeletal: No pedal edema Neurologic: Alert and oriented to person only Moves all extremities. Cooperative Results & Data Results & Data Vital Signs (Past 12 Hours) Vital Signs Temp Pulse Pulse Resp BP BP BP 06/16/23 07:50 36.3 C L 78 20 131/72 06/16/23 03:59 36.8 C 74 20 138/67 06/16/23 03:21 36.5 C 71 16 149/68 H 06/16/23 02:40 36.5 C 71 16 149/68 H 06/16/23 00:50 66 06/16/23 01:22 06/16/23 00:07 71 20 141/68 H 06/15/23 22:40 69 06/15/23 22:00 75 18 127/54 L Pulse Ox O2 Del Method 06/16/23 07:50 96 Room Air 06/16/23 03:59 94 Room Air 06/16/23 03:21 97 Room Air 06/16/23 02:40 97 Room Air 06/16/23 00:50 06/16/23 01:22 Room Air 06/16/23 00:07 96 Room Air 06/15/23 22:40 06/15/23 22:00 97 Room Air Laboratory Results Abnormal lab results 06/15/23 06/15/23 06/16/23 Range/Units 17:38 17:38 02:39 RBC 4.13 L (4.20-5.40) M/uL Hgb (12.0-16.0) g/dl Hct (37.0-47.0) % Plt Count (130-400) K/uL Lymph # (Auto) 1.06 L (1.2-3.4) K/uL Sodium 134 L (136-145) mmol/L BUN 40 H (6-23) mg/dl BUN/Creatinine Ratio 42.6 H (10-20) Glucose 197 H (70-99(Fasting)) mg/dl POC Glucose 180 H (70-99) mg/dl Hemoglobin A1c (4.5-5.6) % Calcium (8.6-10.3) mg/dl 06/16/23 06/16/23 06/16/23 Range/Units 06:12 07:44 07:44 RBC 3.69 L (4.20-5.40) M/uL Hgb 10.9 L (12.0-16.0) g/dl Hct 33.1 L (37.0-47.0) % Plt Count 128 L (130-400) K/uL Lymph # (Auto) 1.02 L (1.2-3.4) K/uL Sodium (136-145) mmol/L BUN 26 H (6-23) mg/dl BUN/Creatinine Ratio 37.7 H (10-20) Glucose 174 H (70-99(Fasting)) mg/dl POC Glucose 171 H (70-99) mg/dl Hemoglobin A1c (4.5-5.6) % Calcium 8.2 L (8.6-10.3) mg/dl 06/16/23 06/16/23 Range/Units 07:44 11:05 RBC (4.20-5.40) M/uL Hgb (12.0-16.0) g/dl Hct (37.0-47.0) % Plt Count (130-400) K/uL Lymph # (Auto) (1.2-3.4) K/uL Sodium (136-145) mmol/L BUN (6-23) mg/dl BUN/Creatinine Ratio (10-20) Glucose (70-99(Fasting)) mg/dl POC Glucose 204 H (70-99) mg/dl Hemoglobin A1c 7.6 H (4.5-5.6) % Calcium (8.6-10.3) mg/dl (1) Multiple fractures of ribs Encounter type: subsequent encounter Fracture type: closed Laterality: right (3) Fall Encounter type: initial encounter Qualified Code(s): W19.XXXA - Unspecified fall, initial encounter
[2023-06-16] MEDS: oxyCODONE HCL IR 5 MG TAB (IMMEDIATE RELEASE) PO PRN ×3 (09:55→23:05)
[2023-06-16] MEDS: ACETAMINOPHEN 500 MG TAB PO SCH ×3 (09:55→23:01)
[2023-06-16] MEDS: CITALOPRAM 40 MG TAB PO SCH (09:56)
[2023-06-16] MEDS: CEROVITE ADV FORMULA TAB PO SCH (09:56)
[2023-06-16] MEDS: CALCIUM 600MG + VIT D 400 IU TAB PO SCH (09:57)
[2023-06-16] MEDS: TOCOPHERYL, DL-ALPHA 400 UNITS 180 MG CAP PO SCH (09:57)
[2023-06-16] MEDS ORDERED: LANTUS PER UNIT CHARGE SC ONE (11:15)
--- NOTE | 2023-06-16 13:58 | CT Scan Report ---
CT chest diagnostic wo con CLINICAL HISTORY: ? right hemothorax TECHNIQUE: Multidetector row helical CT of the chest was performed. Coronal and sagittal reformations were obtained. Automated dose lowering techniques and/or adjustment according to patient size were u tilized for this exam. CT DOSE: 632.37 mGy.cm Comparison: Comparison is made to CT thorax 06/16/2023 FINDINGS: Lungs and pleura: Atelectasis versus scarring is seen in the dependent portions of the lungs. Right p leural effusion is seen, evaluation of density is limited by patient motion however the fluid may be slightly greater than simple fluid density. Heart and pericardium: Heart size is normal. No pericardial effusion. Vessels: Severe atherosclerotic changes in the aorta and coronary arteries. Mediastinum and silvino: There is a 16 mm subcarinal lymph node. Chest wall and lower neck: Unremarkable. Abdomen: Gallstones are seen. Bones: Fractures of the right lateral seventh through 10th ribs are seen. IMPRESSION: 1. Fractures of the right seventh through 10th ribs are seen. There is a mildly dense right thoracic fluid collection likely representing hemothorax. No pneumothorax is seen. 2. Subcarinal lymph node. 3. Cholelithiasis without cholecystitis. ACT 112: Negative or not required by law. Electronically signed by: Ihsan Puente M.D. 06/16/2023 1:56 PM
[2023-06-16] MEDS ORDERED: MINERAL OIL ISOPROPYL MYRISTAT TOP SCH (21:00)
[2023-06-16] MEDS ORDERED: AMOXICILLIN/CLAVULANATE SUSP 250/62.5MG 5ML 75ML BTL PO SCH (21:15)
[2023-06-16] MEDS: ATORVASTATIN 40 MG TAB PO SCH (23:00)
[2023-06-16] MEDS: AMOXICILLIN/CLAVULANATE SUSP 400/57 MG 5 ML BTL PO SCH (23:01)
[2023-06-17] MEDS: ACETAMINOPHEN 500 MG TAB PO SCH ×3 (05:45→21:00)
[2023-06-17] MEDS: LEVOTHYROXINE SODIUM 75 MCG TABLET PO SCH (05:46)
[2023-06-17 07:30] LABS: Hematocrit (blood only) 38.6 % (37.0-47.0); Hemoglobin 12.6 g/dl (12.0-16.0); Mean Corpuscular Hemoglobin 29.5 pg (25.0-34.0); Mean Corpuscular Hgb Conc 32.6 g/dL (32.0-36.0); Mean Corpuscular Volume 90.4 fL (80.0-100.0); Mean Platelet Volume 11.5 fL (9.4-12.4); Platelet Count 127 K/uL (130-400); RDW Coefficient of Variation 13.6 % (11.5-14.5); RDW Standard Deviation 44.6 fL (36.4-46.3); Red Blood Count 4.27 M/uL (4.20-5.40); White Blood Count 4.86 K/ul (4.8-10.8)
[2023-06-17 07:41] LABS: BUN Creatinine Ratio 29.2 (10-20); Creatinine Clr Calc Pharmacy 64.1 ml/min; Est GFR (African American) 93.8 ml/min; Potassium 4.2 mmol/L (3.5-5.1)
[2023-06-17] MEDS: INSULIN ASPART PER UNIT CHARGE SC SCH ×4 (08:49→21:02)
[2023-06-17] MEDS: CALCIUM 600MG + VIT D 400 IU TAB PO SCH (08:50)
[2023-06-17] MEDS: TOCOPHERYL, DL-ALPHA 400 UNITS 180 MG CAP PO SCH (08:50)
[2023-06-17] MEDS: CITALOPRAM 40 MG TAB PO SCH (08:50)
[2023-06-17] MEDS: CEROVITE ADV FORMULA TAB PO SCH (08:50)
[2023-06-17] MEDS: LIDOCAINE 5% 1 PATCH TD SCH (08:51)
--- NOTE | 2023-06-17 10:25 | Pharmacy Report ---
Pharmacy Glycemic Short Note 2 - Date of Service June 17, 2023 - Glycemic Short BSG Results (Last 24 hours): 06/16/23 06/16/23 06/16/23 11:05 16:17 20:07 Glucose POC Glucose 204 H 83 69 L* 06/16/23 06/17/23 06/17/23 20:45 06:36 07:24 Glucose 66 L POC Glucose 99 73 OUTPATIENT ANTIDIABETIC REGIMEN: * Novolog mix 14 units with breakfast, 10 units with dinner ASSESSMENT: 06/17: * BSGs low (83-69-73mg/dL) the last 24h. Received 12 units of basal and 4 units of bolus insulin yesterday. * On PO antibiotics and ordered a diet, however minimal PO intake. * Hold basal for now. Novolog loosened. 06/16: * 83 year old with PMHx significant for hypothyroidism, T2DM, CKD III, htn, dementia, s/p fall found to have multiple rib fractures and right hemothorax. Patient is NPO this morning. Fasting BSG 171 mg/dL - will utilize novolog for now. May consider adding on basal insulin if diet started PLAN FOR INPATIENT GLYCEMIC CONTROL: * Hold outpatient oral diabetes medications * Basal insulin * Lantus - hold * Bolus insulin * NovoLog per scale ACHS or Q6hrs while NPO * Goal Range: Low 120 mg/dL - High 160 mg/dL * Correction Factor: 35 mg/dL/unit * Nutritional / Prandial insulin per carb ratio of 1 unit per 15 grams CHO consumed
--- NOTE | 2023-06-17 10:45 | Hospitalist Progress Note ---
Date of Service June 17, 2023 Assessment & Plan (1) Multiple fractures of ribs: Plan: 83-year-old female past medical significant for hypothyroidism type 2 diabetes, chronic kidney stage III, chronic rhinitis, hypertension, mild protein calorie malnutrition, recurrent UTI, vascular dementia, right eye blindness, generalized anxiety disorder coming from dementia unit with fall and found to have right 7-9 rib fractures and right hemothorax. Fall Frequent falls Imaging noted mdly displaced right seventh and ninth rib fracture, Small right hemothorax Per Admitting Dr, Family does not want chest tubes If hemothorax increases they want to keep her comfortable My review of serial CT chest does not show worsening hemothorax Currently on room air in no respiratory distress Stop antibiotics Updated son (at bedside) and daughter (on the phone) who are POA and spoke with them Updated them about findings so far. They reported that they will like to continue DNR status/no ventilation They also stated they would not want chest tube or procedure at this time PT/OT eval They are working with CM about possible SNF before [facility]. They may not want patient back at [place] Family wants good pain control and comfortable Pain controlled Hb. 12.6 today (was 12.3 on admission) Diabetes Insulin sliding scale Monitor and manage blood glucose A1c is 7.6 Hypothyroidism Continue Synthroid Chronic kidney disease stage III Creatinine 0.65 today Hyperlipidemia statin Generalized anxiety disorder Celexa Vascular dementia severe On dementia unit Monitor for delirium They report patient does not tolerate seroquel Redirect as needed DVT prophylaxis SCDs for now CODE STATUS DNR/DNI I spent a total of 50 minutes coordinating, documenting and providing care for this patient excluding time spent in performance of separately billed services (2) Hemothorax on right: (3) Fall: Admission and Anticipated Discharge Date Admission Date: June 15, 2023 Subjective Patient seen and examined Patient oriented to person only, cooperative ROS limited due to dementia Has no complaints Physical Exam Constitutional: + well hydrated; no acute distress Eyes: ?Artificial right eye ENMT: external ear and nose normal, oropharynx normal Respiratory: normal respiratory effort, lungs clear to auscultation Cardiovascular: Rate/Rhythm: regular rate and regular rhythm S1 S2 Chest (Breasts): Additional Comments: Right chest was bruise (not worse) Tenderness on palpation of right lateral chest wall Gastrointestinal (Abdomen): normal bowel sounds, soft, nontender, no hepatosplenomegaly Musculoskeletal: No pedal edema Moves extremities Neurologic: No facial palsy Cooperative Alert and oriented to person only Results & Data Results & Data Vital Signs (Past 12 Hours) Vital Signs Temp Pulse Resp BP BP Pulse Ox O2 Del Method 06/17/23 07:49 36.3 C L 69 16 168/72 H 99 Room Air 06/17/23 03:41 36.2 C L 69 20 162/78 H 100 Room Air 06/16/23 23:00 Room Air 06/16/23 22:53 36.5 C 75 18 169/78 H 99 Room Air Laboratory Results Abnormal lab results 06/16/23 06/17/23 06/17/23 Range/Units 20:07 06:36 06:36 Plt Count 127 L (130-400) K/uL BUN/Creatinine Ratio 29.2 H (10-20) Glucose 66 L (70-99(Fasting)) mg/dl POC Glucose 69 L* (70-99) mg/dl 06/17/23 Range/Units 10:59 Plt Count (130-400) K/uL BUN/Creatinine Ratio (10-20) Glucose (70-99(Fasting)) mg/dl POC Glucose 174 H (70-99) mg/dl (1) Multiple fractures of ribs Encounter type: subsequent encounter Fracture type: closed Laterality: right (3) Fall Encounter type: initial encounter Qualified Code(s): W19.XXXA - Unspecified fall, initial encounter
[2023-06-17] MEDS: AMOXICILLIN/CLAVULANATE SUSP 400/57 MG 5 ML BTL PO SCH (14:30)
[2023-06-17] MEDS: ATORVASTATIN 40 MG TAB PO SCH (20:58)
[2023-06-18] MEDS: LEVOTHYROXINE SODIUM 75 MCG TABLET PO SCH (05:30)
[2023-06-18] MEDS: ACETAMINOPHEN 500 MG TAB PO SCH ×2 (05:30→12:31)
[2023-06-18 07:03] LABS: Hematocrit (blood only) 36.5 % (37.0-47.0); Mean Corpuscular Hemoglobin 29.4 pg (25.0-34.0); Mean Corpuscular Hgb Conc 32.9 g/dL (32.0-36.0); Mean Corpuscular Volume 89.5 fL (80.0-100.0); Mean Platelet Volume 10.9 fL (9.4-12.4); Platelet Count 143 K/uL (130-400); RDW Coefficient of Variation 13.6 % (11.5-14.5); RDW Standard Deviation 44.2 fL (36.4-46.3); Red Blood Count 4.08 M/uL (4.20-5.40); White Blood Count 5.04 K/ul (4.8-10.8)
[2023-06-18 07:26] LABS: BUN Creatinine Ratio 28.6 (10-20); Calcium 8.5 mg/dl (8.6-10.3); Creatinine Clr Calc Pharmacy 54.1 ml/min; Est GFR (African American) 81.6 ml/min; Est GFR (Non-African American) 70.4 ml/min; Potassium 4.1 mmol/L (3.5-5.1)
[2023-06-18] MEDS: CITALOPRAM 40 MG TAB PO SCH (07:39)
[2023-06-18] MEDS: TOCOPHERYL, DL-ALPHA 400 UNITS 180 MG CAP PO SCH (07:39)
[2023-06-18] MEDS: CEROVITE ADV FORMULA TAB PO SCH (07:39)
[2023-06-18] MEDS: CALCIUM 600MG + VIT D 400 IU TAB PO SCH (07:39)
[2023-06-18] MEDS: LIDOCAINE 5% 1 PATCH TD SCH (07:40)
[2023-06-18] MEDS: INSULIN ASPART PER UNIT CHARGE SC SCH ×2 (08:20→12:29)
[2023-06-18] MEDS: oxyCODONE HCL IR 5 MG TAB (IMMEDIATE RELEASE) PO PRN (08:24)
[2023-06-18] MEDS ORDERED: LEVOTHYROXINE SODIUM 37.5 MCG in SYRINGE 0 ML IV SCH (09:00)
[2023-06-18] MEDS ORDERED: COVID19 BIVALENT Vaccine (Pfizer) 30mcg/0.3mL SDV IM ONE (11:08)
--- NOTE | 2023-06-18 13:14 | Discharge Summary ---
Date of Service June 18, 2023 Admission HPI Per Admitting Provider 83-year-old female past medical significant for hypothyroidism type 2 diabetes, chronic kidney stage III, chronic rhinitis, hypertension, mild protein calorie malnutrition, recurrent UTI, vascular dementia, right eye blindness, generalized anxiety disorder coming from dementia unit with fall and found to have right 7-9 rib fractures and right hemothorax. Patient was in ER on June 12 with a fall and imaging studies were okay and she was discharged back to [facility]. Daughter is in the room. Patient ambulates with a walker. She has severe dementia. Oriented to name. Eats regular food. He is to ambulate well with a walker but since last fall she is walking very slowly and fell again today. Patient is DNR/DNI. Daughter and son are POA. Plan to repeat CT scan to see if there is increasing in hemothorax. Initially daughter seemed okay for chest tube but later after discussing with the brother decided for no chest tubes and to keep her comfortable. Currently patient is afebrile. Hemodynamically stable. Past medical history as mentioned above Past surgical history colonoscopy, processes right eye,, cataract surgery, Social history currently in dementia unit. No smoking no alcohol no drug use as per [facility] Family history father had liver cancer, mother had colon cancer Admission Exam Per Admitting Provider General- alert and awake. Not oriented Head- atraumatic Eyes- right eye blind ENT- oropharynx clear Neck- supple, no JVD. Lungs- clear to auscultation and percussion no added sounds. bruise seen on right lateral rib cage Heart- regular rate rhythm; no murmur, no gallop. Abdomen- normal bowel sounds, soft, nontender, no distension Extremities- mild pretibial edema, no erythema seen Neuro- alert and awake but not oriented.; no facial palsy; no dysarthria;Moves extremities. Skin- warm & dry Principal Diagnosis Fall Multiple right rib fractures Right hemothorax UTI versus colonization Discharge Exam Constitutional: + well hydrated; no acute distress Eyes: Artificial right eye, blind rt eye ENMT: external ear and nose normal, oropharynx normal Respiratory: normal respiratory effort, lungs clear to auscultation Cardiovascular: Rate/Rhythm: regular rate and regular rhythm S1 S2 Chest (Breasts): Additional Comments: Right chest was bruise (not worse) Tenderness on palpation of right lateral chest wall Gastrointestinal (Abdomen): normal bowel sounds, soft, nontender, no hepatosplenomegaly Musculoskeletal: No pedal edema Moves extremities Neurologic: No facial palsy Cooperative Alert and oriented to person only Discharge Data Allergies Allergy/AdvReac Type Severity Reaction Status Date / Time azithromycin Allergy Intermediate itching Verified 06/12/23 22:07 Cephalosporins Allergy Intermediate ITCHING Verified 06/12/23 22:07 quetiapine [From Seroquel] Allergy Unknown ON [place] Verified 06/12/23 22:07 MED LIST clindamycin AdvReac Intermediate Diarrhea Verified 06/12/23 22:07 haloperidol AdvReac Unknown ON [place] Verified 06/16/23 01:17 MED LIST risperidone AdvReac Unknown ON [place] Verified 06/16/23 01:18 MED LIST Consultations 06/15/23 18:46 ED Decision to Admit Stat Ordered Studies 06/15/23 15:13 CT cervical spine wo con Stat CT head/brain wo con Stat 06/15/23 17:08 CT abd pelvis wo con Stat CT chest diagnostic wo con Stat 06/16/23 01:12 CT chest diagnostic wo con Stat 06/16/23 09:00 CT chest diagnostic wo con Routine Hospital Course (1) Multiple fractures of ribs: Per prior attending with addendum: 83-year-old female past medical significant for hypothyroidism type 2 diabetes, chronic kidney stage III, chronic rhinitis, hypertension, mild protein calorie malnutrition, recurrent UTI, vascular dementia, right eye blindness, generalized anxiety disorder coming from dementia unit with fall and found to have right 7-9 rib fractures and right hemothorax. Fall Frequent falls Imaging noted mdly displaced right seventh and ninth rib fracture, Small right hemothorax Per Admitting Dr, Family does not want chest tubes If hemothorax increases they want to keep her comfortable My review of serial CT chest does not show worsening hemothorax Currently on room air in no respiratory distress Stop antibiotics Updated son (at bedside) and daughter (on the phone) who are POA and spoke with them Updated them about findings so far. They reported that they will like to continue DNR status/no ventilation They also stated they would not want chest tube or procedure at this time PT/OT eval They are working with [facility] about possible SNF before residential place. They may not want patient back at [place] Family wants good pain control and comfortable Pain controlled Hb. 12.6 today (was 12.3 on admission) Diabetes Insulin sliding scale Monitor and manage blood glucose A1c is 7.6 Hypothyroidism Continue Synthroid Chronic kidney disease stage III Creatinine 0.65 today Hyperlipidemia statin Generalized anxiety disorder Celexa Vascular dementia severe On dementia unit Monitor for delirium They report patient does not tolerate seroquel Redirect as needed DVT prophylaxis SCDs for now CODE STATUS DNR/DNI Addendum: Patient was seen and examined at bedside, patient's son was at bedside who was updated in detail and then he requested the same update to his sister via the phone which was also carried out at bedside. Total of about 20 minutes spent during this discussion process w/ two family members. They discussed regarding bivalent COVID-vaccine, and wanted it to be given 2 weeks later, then wanted it to be given today before leaving because of logistic at SNF facility per them. I received a message from patient's outpatient provider for getting repeat urine culture later in the morning which was communicated to patient's daughter again via the phone [approximately another 7 minutes here]. Since patient is being discharged today, if possible we will collect urine culture while in hospital if not patient is to get repeat urine culture at the SNF facility. Patient appears stable, on room air, does not appear to be in pain. We will be discharging her on Tylenol and lidocaine patch 4% which are both [id number]. Patient is being prescribed few days worth of oxycodone to manage severe pain. If ongoing pain or worsening pain, she will need further evaluation by PCP for further pain management prescription. She will need to repeat chest x-ray in 1 week time to monitor her right hemothorax. We will discontinue her ibuprofen at discharge. Patient is being discharged to SNF with following instruction at the point of discharge: Follow-up with your primary care physician within a week time and likely you will need labs CBC/CMP/magnesium/phosphorus. [place] fall precaution, continue with your physical therapy. Follow-up with chest x-ray in 1 week time to make sure right hemothorax is stable or decreasing. Coordinate with the PCP office for the test. If possible, urine culture will be collected before you leave the hospital today. If not, please repeat urine culture at the nursing facility next time when you are able to void. The result needs to be followed either by your PCP office or the doctor at the nursing facility. For mild to moderate pain, you can use [id number] Tylenol and lidocaine patch 4%. You will be discharged with few days worth of oxycodone to manage with severe pain, if pain is worsening or ongoing, you will need further evaluation/pain management prescription. Coordinate with the PCP office. Take your medications as prescribed. Please make sure that you are able to get your medications today by calling your pharmacy before you leave the hospital so that your treatment continuity is not broken. (2) Hemothorax on right: (3) Fall: Home Health Attestation I certify that this patient is under my care and that I, or a physicians data assistant working with me, had a face to-face encounter that meets the home health [id number] encounter requirements with this patient. The encounter with the patient was in whole, or in part, for the following medical condition, which is the primary reason for home health care (list medical condition): I certify that, based on my findings, the following services are medically necessary home health services: My clinical findings support the need for the above services because: Further, I certify that my clinical findings support that this patient is homebound (i.e. absences from home require considerable and taxing effort and are for medical reasons or sikhism services or infrequently or of short duration when for other reasons) because: Certification for Home Health Services: Based on the above findings, I certify that this patient is confined to the home and needs intermittent fpc care, physical therapy and/or speech therapy or continues to need occupational therapy. The patient is under my care, and I have initiated the establishment of the plan of care. This patient will be followed by a physician who will periodically review the plan of care. Total Time Total Time Spent Total Time Spent (In Minutes): 45 Discharge Plan Discharge Items Patient Disposition: Transfer Correction Fac Reason For Visit: FALL, RT HEMOTHORAX, RIB FRACTURES Discharge Diagnosis: Fall Multiple right rib fractures Right hemothorax UTI versus colonization Activity: As commented below Activity Comment: Fall precaution Non-emergency contact: Primary Care Provider Call non-emergency contact if: you have any medication questions, your symptoms worsen and your temperature is above 101 Follow-up/Referrals: Lobito Cortez MD [Primary Care Provider] - Diet: Carb Consistent or DM2 and Heart Healthy Diet Texture: Easy to Chew Addtl Attending Provider Instructions: Follow-up with your primary care physician within a week time and likely you will need labs CBC/CMP/magnesium/phosphorus. [place] fall precaution, continue with your physical therapy. Follow-up with chest x-ray in 1 week time to make sure right hemothorax is stable or decreasing. Coordinate with the PCP office for the test. If possible, urine culture will be collected before you leave the hospital today. If not, please repeat urine culture at the nursing facility next time when you are able to void. The result needs to be followed either by your PCP office or the doctor at the nursing facility. For mild to moderate pain, you can use [id number] Tylenol and lidocaine patch 4%. You will be discharged with few days worth of oxycodone to manage with severe pain, if pain is worsening or ongoing, you will need further evaluation/pain management prescription. Coordinate with the PCP office. Take your medications as prescribed. Please make sure that you are able to get your medications today by calling your pharmacy before you leave the hospital so that your treatment continuity is not broken. Pending Studies at Discharge: Yes (If UCx can be collected before discharge. ) Stand-Alone Forms: [facility] Skilled Items Patient informed of condition?: Yes DNR: Yes Discharge Level of Care: Skilled Communicable Disease: No Discharge Prognosis: Stable Lines: None Urinary Catheter: No Medications and DC Order Prescriptions: New oxycodone 5 mg Tablet 5 mg PO Q8H PRN (Reason: severe pain (scale score 7-10)) 5 Days Qty: 15 0RF Continued (DME) BD AutoShield Duo Pen Needle 30 gauge x 3/16" needle See Rx Instructions .ROUTE .MEDSUPPLY Qty: 500 1RF Rx Instructions: Use five times daily for insulin (DME) lancets [ReadyLance Safety Lancets] 30 gauge misc See Rx Instructions .Route Qty: 400 3RF Rx Instructions: Test blood sugars 4 times a day (DME) blood sugar diagnostic Strip See Rx Instructions .ROUTE .MEDSUPPLY Qty: 500 3RF Rx Instructions: Test blood sugar four times a day before meals and at bedtime; more PRN Onetouch Ultra insulin aspart U-100 [Novolog FlexPen U-100 Insulin] 100 unit/mL (3 mL) insulin pen 3 unit SUBCUT QDL Qty: 15 5RF atorvastatin 40 mg tablet 40 mg PO HS Rx Instructions: 8 PM citalopram [Celexa] 40 mg tablet 40 mg PO QAM Rx Instructions: 8 AM levothyroxine 75 mcg tablet 75 mcg PO DAILYBB Rx Instructions: Take first thing in the morning on an empty stomach. Wait 30 min before eating Restasis 0.05 % dropperette 1 drops OPB BID vitamin E 268 mg (400 unit) Capsule 268 mg PO DAILY mineral oil-isopropyl myristat Lotion 1 applic TOPICAL HS Rx Instructions: APPLY TO FEET glucosamine-chondroitin 750-600 mg Tablet 1 tab PO QAM Rx Instructions: 8 AM Glucerna Shake Liquid 1 ea PO QAM Rx Instructions: 8AM CertaVite Senior 0.4 mg-300 mcg- 250 mcg Tablet 1 tab PO QAM Rx Instructions: 8 AM calcium carbonate-vitamin D3 [Calcium 600 + D(3)] 600 mg-10 mcg (400 unit) T ablet 1 tab PO QAM Rx Instructions: 8AM PreserVision AREDS-2 250-90-40-1 mg Capsule 1 tab PO BID insulin asp prt-insulin aspart [Novolog Mix 70-30FlexPen U-100] 100 unit/mL (70-30) insulin pen See Rx Instructions .ROUTE .COMPLEX Rx Instructions: TAKES 14 units before breakfast; 10 units before supper;Fax blood glucose levels on , insulin aspart U-100 [Novolog FlexPen U-100 Insulin] 100 unit/mL (3 mL) insulin pen 5 unit subcut DIRECTED PRN (Reason: MONTHLY BIRTHDAY TREATS) Systane Balance 0.6 % Drops 1 drp OPB TID Neosporin (rjz-toj-kujdi) 3.5mg-400 unit- 5,000 unit/gram Ointment 1 applic TOPICAL DAILY PRN (Reason: NEEDED ) Rx Instructions: APPLY TO LEFT BIG TOE, COVER WITH BANDAID. Changed acetaminophen [Tylenol Extra Strength] 500 mg Tablet 1,000 mg PO Q8H Qty: 60 0RF Rx Instructions: 8 AM, 8PM Discontinued acetaminophen [Tylenol] 325 mg capsule 325 mg PO Q6H PRN (Reason: MOD PAIN/TEMP > 100.5F) ibuprofen 200 mg Tablet 200 mg PO Q8H PRN (Reason: Pain, Moderate) Discharge Orders: Discharge Order (Routine); Ordered 06/18/23 Ordered By: Sharita Gallego Admission Data Admit Date/Time: 06/15/23 21:13 Attending Provider: Sharita Gallego Admit Provider: Cortez Waller Primary Care Provider: Lobito Cortez Other Providers: Cortez Waller ; Chary Lincoln at [place] ; [place] ; [place] [place]
== END 2023-06-18 01:40 | DRG 184 ==
LOC: ED 15:05 → SUATTDRO 21:13 → 2S 21:13